=== PATIENT | male | born 1955 | race Caucasian/White ===

== ENCOUNTER → 2016-06-25 | Outpatient (CLI) | payer MEDICARE, OTHER ==
[2016-06-25 12:43] LABS: BLOOD UREA NITROGEN 21 MG/DL (7-18); CREATININE FOR GFR 0.94 MG/DL (0.70-1.30); GLOMERULAR FILTRATION RATE > 60.0 (>49)
== END ==
LOC: M LAB 11:32
PROVIDERS: ATTEND Orthopaedic Surgery Orthopaedic Surgery of the Spine
DX: M54.16 Radiculopathy, lumbar region (principal); Z79.899 Other long term (current) drug therapy

== ENCOUNTER → 2016-07-08 | Outpatient (REF) | payer MEDICARE, OTHER ==
[2016-07-08 17:25] LABS: BASO % 0.4 % (0.0-1.0); EOS # 0.4 K/mm3 (0.0-0.50); LARGE UNSTAINED CELL # 0.2 K/mm3 (0.0-0.4); LARGE UNSTAINED CELL % 1.5 % (0.0-4.0); LYMPH # 2.4 K/mm3 (1.5-4.5); LYMPH % 20.4 % (24.0-44.0); MEAN CORPUSCULAR HEMOGLOBIN 29.6 pg (27.0-33.0); MEAN CORPUSCULAR HGB CONC 31.4 g/dl (32.0-36.5); MEAN CORPUSCULAR VOLUME 94.3 fl (80.0-96.0); MONO # 0.6 K/mm3 (0.0-0.8); NEUTROPHILS # 8.2 K/mm3 (1.8-7.7); NEUTROPHILS % 69.7 % (36.0-66.0); PLATELET COUNT, AUTOMATED 1038 k/mm3 (150-450); WHITE BLOOD COUNT 11.7 K/mm3 (4.0-10.0)
[2016-07-08 18:27] LABS: ALBUMIN/GLOBULIN RATIO 0.32 (1.00-1.93); ALKALINE PHOSPHATASE 206 U/L (45-117); ALT/SGPT 29 U/L (12-78); ANION GAP 8 MEQ/L (8-16); AST/SGOT 24 U/L (15-37); BILIRUBIN,TOTAL 0.2 MG/DL (0.2-1.0); BLOOD UREA NITROGEN 14 MG/DL (7-18); CALCIUM LEVEL 8.9 MG/DL (8.8-10.2); CARBON DIOXIDE LEVEL 28 MEQ/L (21-32); CHLORIDE LEVEL 100 MEQ/L (98-107); GLOMERULAR FILTRATION RATE > 60.0 (>49); GLUCOSE, FASTING 141 MG/DL (80-110); SODIUM LEVEL 136 MEQ/L (136-145); TOTAL PROTEIN 8.3 GM/DL (6.4-8.2)
[2016-07-08 18:32] LABS: POTASSIUM SERUM 5.2 MEQ/L (3.5-5.1)
[2016-07-08 20:51] LABS: ERYTHROCYTE SEDIMENTATION RATE 116 mm/hr (0-20)
== END ==
LOC: M LAB REF 17:04
PROVIDERS: ATTEND Physician Assistant
DX: T81.4XXA Infection following a procedure, initial encounter (principal)

== ENCOUNTER → 2016-07-15 | Outpatient (REF) | payer MEDICARE, OTHER ==
[2016-07-15 18:32] LABS: BASO % 0.4 % (0.0-1.0); EOS # 0.3 K/mm3 (0.0-0.50); EOS % 2.3 % (0.0-3.0); LARGE UNSTAINED CELL # 0.2 K/mm3 (0.0-0.4); LARGE UNSTAINED CELL % 1.4 % (0.0-4.0); LYMPH # 3.1 K/mm3 (1.5-4.5); LYMPH % 25.4 % (24.0-44.0); MEAN CORPUSCULAR HEMOGLOBIN 29.6 pg (27.0-33.0); MEAN CORPUSCULAR HGB CONC 31.7 g/dl (32.0-36.5); MEAN CORPUSCULAR VOLUME 93.5 fl (80.0-96.0); MONO # 0.8 K/mm3 (0.0-0.8); MONO % 6.3 % (0.0-5.0); NEUTROPHILS # 7.8 K/mm3 (1.8-7.7); NEUTROPHILS % 64.1 % (36.0-66.0); PLATELET COUNT, AUTOMATED 832 k/mm3 (150-450); RED CELL DISTRIBUTION WIDTH 14.1 % (11.5-14.5); WHITE BLOOD COUNT 12.1 K/mm3 (4.0-10.0)
[2016-07-15 19:01] LABS: ALBUMIN 2.3 GM/DL (3.2-5.2); ALBUMIN/GLOBULIN RATIO 0.38 (1.00-1.93); ALKALINE PHOSPHATASE 193 U/L (45-117); ALT/SGPT 25 U/L (12-78); ANION GAP 10 MEQ/L (8-16); AST/SGOT 23 U/L (15-37); BILIRUBIN,TOTAL 0.3 MG/DL (0.2-1.0); BLOOD UREA NITROGEN 13 MG/DL (7-18); CALCIUM LEVEL 9.1 MG/DL (8.8-10.2); CARBON DIOXIDE LEVEL 26 MEQ/L (21-32); CHLORIDE LEVEL 100 MEQ/L (98-107); CREATININE FOR GFR 0.72 MG/DL (0.70-1.30); GLOMERULAR FILTRATION RATE > 60.0 (>49); GLUCOSE, FASTING 92 MG/DL (80-110); POTASSIUM SERUM 4.9 MEQ/L (3.5-5.1); SODIUM LEVEL 136 MEQ/L (136-145); TOTAL PROTEIN 8.4 GM/DL (6.4-8.2)
[2016-07-15 20:13] LABS: ERYTHROCYTE SEDIMENTATION RATE 106 mm/hr (0-20)
== END ==
LOC: M LAB REF 18:00
PROVIDERS: ATTEND Physician Assistant
DX: T81.4XXA Infection following a procedure, initial encounter (principal); Z79.2 Long term (current) use of antibiotics; Y83.9 Surgical procedure, unspecified as the cause of abnormal reaction of the patient, or of later complication, without mention of misadventure at the time of the procedure

== ENCOUNTER → 2016-07-22 | Outpatient (REF) | payer MEDICARE, OTHER ==
[2016-07-22 16:26] LABS: ALBUMIN 2.4 GM/DL (3.2-5.2); ALBUMIN/GLOBULIN RATIO 0.46 (1.00-1.93); ALKALINE PHOSPHATASE 186 U/L (45-117); ALT/SGPT 21 U/L (12-78); ANION GAP 8 MEQ/L (8-16); AST/SGOT 21 U/L (15-37); BILIRUBIN,TOTAL 0.1 MG/DL (0.2-1.0); BLOOD UREA NITROGEN 15 MG/DL (7-18); CALCIUM LEVEL 8.8 MG/DL (8.8-10.2); CARBON DIOXIDE LEVEL 28 MEQ/L (21-32); CHLORIDE LEVEL 103 MEQ/L (98-107); CREATININE FOR GFR 0.85 MG/DL (0.70-1.30); GLOMERULAR FILTRATION RATE > 60.0 (>49); GLUCOSE, FASTING 111 MG/DL (80-110); POTASSIUM SERUM 4.6 MEQ/L (3.5-5.1); SODIUM LEVEL 139 MEQ/L (136-145); TOTAL PROTEIN 7.6 GM/DL (6.4-8.2)
[2016-07-22 16:56] LABS: ERYTHROCYTE SEDIMENTATION RATE 104 mm/hr (0-20)
[2016-07-22 18:16] LABS: BASO # 0.1 K/mm3 (0.0-0.2); BASO % 1.1 % (0.0-1.0); EOS # 0.6 K/mm3 (0.0-0.50); EOS % 4.3 % (0.0-3.0); LARGE UNSTAINED CELL # 0.2 K/mm3 (0.0-0.4); LARGE UNSTAINED CELL % 1.5 % (0.0-4.0); LYMPH # 3.3 K/mm3 (1.5-4.5); LYMPH % 24.6 % (24.0-44.0); MEAN CORPUSCULAR HEMOGLOBIN 29.4 pg (27.0-33.0); MEAN CORPUSCULAR HGB CONC 31.8 g/dl (32.0-36.5); MEAN CORPUSCULAR VOLUME 92.6 fl (80.0-96.0); MONO # 0.8 K/mm3 (0.0-0.8); MONO % 6.4 % (0.0-5.0); NEUTROPHILS # 7.9 K/mm3 (1.8-7.7); PLATELET COUNT, AUTOMATED 574 k/mm3 (150-450); RED CELL DISTRIBUTION WIDTH 15.3 % (11.5-14.5); WHITE BLOOD COUNT 12.7 K/mm3 (4.0-10.0)
== END ==
LOC: M LAB REF 15:58
PROVIDERS: ATTEND Physician Assistant Surgical
DX: T81.4XXD Infection following a procedure, subsequent encounter (principal); Y83.8 Other surgical procedures as the cause of abnormal reaction of the patient, or of later complication, without mention of misadventure at the time of the procedure; Z79.899 Other long term (current) drug therapy

== ENCOUNTER → 2016-07-29 | Outpatient (REF) | payer MEDICARE, OTHER ==
[2016-07-29 13:15] LABS: ALBUMIN/GLOBULIN RATIO 0.58 (1.00-1.93); ALKALINE PHOSPHATASE 208 U/L (45-117); ALT/SGPT 28 U/L (12-78); ANION GAP 9 MEQ/L (8-16); AST/SGOT 25 U/L (15-37); BILIRUBIN,TOTAL 0.1 MG/DL (0.2-1.0); BLOOD UREA NITROGEN 14 MG/DL (7-18); CALCIUM LEVEL 9.3 MG/DL (8.8-10.2); CARBON DIOXIDE LEVEL 27 MEQ/L (21-32); CHLORIDE LEVEL 103 MEQ/L (98-107); CREATININE FOR GFR 0.79 MG/DL (0.70-1.30); GLOMERULAR FILTRATION RATE > 60.0 (>49); GLUCOSE, FASTING 116 MG/DL (80-110); POTASSIUM SERUM 4.5 MEQ/L (3.5-5.1); SODIUM LEVEL 139 MEQ/L (136-145); TOTAL PROTEIN 8.2 GM/DL (6.4-8.2)
[2016-07-29 13:29] LABS: BASO # 0.1 K/mm3 (0.0-0.2); BASO % 0.5 % (0.0-1.0); EOS # 0.4 K/mm3 (0.0-0.50); EOS % 3.5 % (0.0-3.0); LARGE UNSTAINED CELL # 0.2 K/mm3 (0.0-0.4); LARGE UNSTAINED CELL % 1.2 % (0.0-4.0); LYMPH % 23.5 % (24.0-44.0); MEAN CORPUSCULAR HEMOGLOBIN 29.5 pg (27.0-33.0); MEAN CORPUSCULAR HGB CONC 31.3 g/dl (32.0-36.5); MEAN CORPUSCULAR VOLUME 94.3 fl (80.0-96.0); MONO # 0.6 K/mm3 (0.0-0.8); NEUTROPHILS # 8.1 K/mm3 (1.8-7.7); NEUTROPHILS % 66.3 % (36.0-66.0); PLATELET COUNT, AUTOMATED 469 k/mm3 (150-450); RED CELL DISTRIBUTION WIDTH 15.3 % (11.5-14.5); WHITE BLOOD COUNT 12.2 K/mm3 (4.0-10.0)
[2016-07-29 14:25] LABS: ERYTHROCYTE SEDIMENTATION RATE 66 mm/hr (0-20)
== END ==
LOC: M LAB REF 12:30
PROVIDERS: ATTEND Physician Assistant Surgical
DX: T81.4XXA Infection following a procedure, initial encounter (principal)

== ENCOUNTER → 2016-08-05 | Outpatient (REF) | payer MEDICARE, OTHER ==
[2016-08-05 19:53] LABS: ALBUMIN 2.7 GM/DL (3.2-5.2); ALBUMIN/GLOBULIN RATIO 0.63 (1.00-1.93); ALKALINE PHOSPHATASE 153 U/L (45-117); ALT/SGPT 27 U/L (12-78); ANION GAP 11 MEQ/L (8-16); AST/SGOT 23 U/L (15-37); BILIRUBIN,TOTAL 0.1 MG/DL (0.2-1.0); BLOOD UREA NITROGEN 17 MG/DL (7-18); CALCIUM LEVEL 8.4 MG/DL (8.8-10.2); CARBON DIOXIDE LEVEL 26 MEQ/L (21-32); CHLORIDE LEVEL 106 MEQ/L (98-107); CREATININE FOR GFR 0.62 MG/DL (0.70-1.30); GLOMERULAR FILTRATION RATE > 60.0 (>49); GLUCOSE, FASTING 87 MG/DL (80-110); SODIUM LEVEL 143 MEQ/L (136-145)
[2016-08-05 20:07] LABS: BASO # 0.1 K/mm3 (0.0-0.2); BASO % 0.6 % (0.0-1.0); EOS # 0.6 K/mm3 (0.0-0.50); LARGE UNSTAINED CELL # 0.2 K/mm3 (0.0-0.4); LARGE UNSTAINED CELL % 2.3 % (0.0-4.0); LYMPH # 3.1 K/mm3 (1.5-4.5); LYMPH % 30.3 % (24.0-44.0); MEAN CORPUSCULAR HEMOGLOBIN 30.2 pg (27.0-33.0); MEAN CORPUSCULAR HGB CONC 31.7 g/dl (32.0-36.5); MEAN CORPUSCULAR VOLUME 95.2 fl (80.0-96.0); MONO # 0.6 K/mm3 (0.0-0.8); MONO % 5.4 % (0.0-5.0); NEUTROPHILS # 5.7 K/mm3 (1.8-7.7); NEUTROPHILS % 55.4 % (36.0-66.0); PLATELET COUNT, AUTOMATED 400 k/mm3 (150-450); RED CELL DISTRIBUTION WIDTH 15.4 % (11.5-14.5); WHITE BLOOD COUNT 10.3 K/mm3 (4.0-10.0)
[2016-08-05 20:44] LABS: ERYTHROCYTE SEDIMENTATION RATE 40 mm/hr (0-20)
== END ==
LOC: M LAB REF 17:27
PROVIDERS: ATTEND Internal Medicine Hematology & Oncology
DX: Z51.81 Encounter for therapeutic drug level monitoring (principal); Z79.899 Other long term (current) drug therapy

== ENCOUNTER → 2016-08-23 | Outpatient (CLI) | payer MEDICARE, OTHER ==
[2016-08-23 09:34] LABS: BASO # 0.1 K/mm3 (0.0-0.2); BASO % 0.6 % (0.0-1.0); EOS # 0.5 K/mm3 (0.0-0.50); LARGE UNSTAINED CELL # 0.3 K/mm3 (0.0-0.4); LYMPH # 3.6 K/mm3 (1.5-4.5); LYMPH % 29.4 % (24.0-44.0); MEAN CORPUSCULAR HEMOGLOBIN 29.9 pg (27.0-33.0); MEAN CORPUSCULAR HGB CONC 31.4 g/dl (32.0-36.5); MEAN CORPUSCULAR VOLUME 95.4 fl (80.0-96.0); MONO # 0.6 K/mm3 (0.0-0.8); MONO % 5.2 % (0.0-5.0); NEUTROPHILS # 7.2 K/mm3 (1.8-7.7); NEUTROPHILS % 58.7 % (36.0-66.0); PLATELET COUNT, AUTOMATED 444 k/mm3 (150-450); WHITE BLOOD COUNT 12.3 K/mm3 (4.0-10.0)
[2016-08-23 10:04] LABS: ANION GAP 6 MEQ/L (8-16); BLOOD UREA NITROGEN 11 MG/DL (7-18); CALCIUM LEVEL 9.7 MG/DL (8.8-10.2); CARBON DIOXIDE LEVEL 32 MEQ/L (21-32); CHLORIDE LEVEL 103 MEQ/L (98-107); CREATININE FOR GFR 0.79 MG/DL (0.70-1.30); GLOMERULAR FILTRATION RATE > 60.0 (>49); GLUCOSE, FASTING 103 MG/DL (80-110); POTASSIUM SERUM 4.9 MEQ/L (3.5-5.1); SODIUM LEVEL 141 MEQ/L (136-145)
[2016-08-23 10:21] LABS: ERYTHROCYTE SEDIMENTATION RATE 44 mm/hr (0-20)
== END ==
LOC: M LAB 08:52
PROVIDERS: ATTEND Internal Medicine
DX: T81.4XXD Infection following a procedure, subsequent encounter (principal); X58.XXXA Exposure to other specified factors, initial encounter; Y92.89 Other specified places as the place of occurrence of the external cause; Y93.89 Activity, other specified; Y99.8 Other external cause status

== ENCOUNTER → 2016-08-26 | Outpatient (REF) | payer MEDICARE, OTHER ==
[2016-08-26 19:36] LABS: ALBUMIN 3.4 GM/DL (3.2-5.2); ALBUMIN/GLOBULIN RATIO 0.81 (1.00-1.93); ALKALINE PHOSPHATASE 159 U/L (45-117); ALT/SGPT 25 U/L (12-78); ANION GAP 8 MEQ/L (8-16); AST/SGOT 20 U/L (15-37); BILIRUBIN,TOTAL 0.2 MG/DL (0.2-1.0); BLOOD UREA NITROGEN 15 MG/DL (7-18); CALCIUM LEVEL 8.8 MG/DL (8.8-10.2); CARBON DIOXIDE LEVEL 29 MEQ/L (21-32); CHLORIDE LEVEL 105 MEQ/L (98-107); CHOLESTEROL LEVEL 194 MG/DL (<200); CREATININE FOR GFR 0.78 MG/DL (0.70-1.30); GLOMERULAR FILTRATION RATE > 60.0 (>49); GLUCOSE, FASTING 117 MG/DL (80-110); POTASSIUM SERUM 4.4 MEQ/L (3.5-5.1); SODIUM LEVEL 142 MEQ/L (136-145); TOTAL PROTEIN 7.6 GM/DL (6.4-8.2); TRIGLYCERIDES LEVEL 328 MG/DL (<150)
[2016-08-29 00:06] LABS: PSA % FREE 24.7 % (.); PSA FREE 1.06 ng/mL; PSA TOTAL 4.3 ng/mL (0.0-4.0)
== END ==
LOC: M LAB REF 18:55
PROVIDERS: ATTEND Nurse Practitioner Family
DX: Z12.5 Encounter for screening for malignant neoplasm of prostate (principal); E78.4 Other hyperlipidemia

== ENCOUNTER → 2016-10-26 | Outpatient (CLI) | payer MEDICARE, OTHER ==
[2016-10-26 10:15] LABS: BLOOD UREA NITROGEN 20 MG/DL (7-18); CREATININE FOR GFR 0.83 MG/DL (0.70-1.30); GLOMERULAR FILTRATION RATE > 60.0 (>49)
== END ==
LOC: M LAB 09:22
PROVIDERS: ATTEND Orthopaedic Surgery Orthopaedic Surgery of the Spine
DX: M54.16 Radiculopathy, lumbar region (principal)

== ENCOUNTER → 2017-03-11 | Outpatient (REF) | payer MEDICARE, OTHER | LOC: M SMT 17:08 | PROVIDERS: ATTEND Nurse Practitioner Women's Health | DX: R97.20 Elevated prostate specific antigen [PSA] (principal); Z79.82 Long term (current) use of aspirin; Z79.899 Other long term (current) drug therapy | CPT/HCPCS: 81001; 87086; G0463 ==

== ENCOUNTER 2018-02-07 16:46 | Emergency (ER) | payer MEDICARE, OTHER ==
[2018-02-07 17:18] LABS: BASO # 0.1 10^3/uL (0.0-0.2); BASO % 0.8 % (0.0-1.0); EOS # 0.3 10^3/uL (0.0-0.50); EOS % 2.3 % (0.0-3.0); HEMATOCRIT 42.4 % (42.0-52.0); HEMOGLOBIN 13.6 g/dl (13.5-17.5); IMMATURE GRANULOCYTE % 0.3 % (0-3.0); LYMPH # 3.4 10^3/uL (1.5-4.5); LYMPH % 26.2 % (24.0-44.0); MEAN CORPUSCULAR HGB CONC 32.1 g/dl (32.0-36.5); MEAN CORPUSCULAR VOLUME 93.4 fl (80.0-96.0); NEUTROPHILS # 8.1 10^3/uL (1.8-7.7); NEUTROPHILS % 62.4 % (36.0-66.0); PLATELET COUNT, AUTOMATED 405 10^3/uL (150-450); RED BLOOD COUNT 4.54 10^6/uL (4.30-6.10); RED CELL DISTRIBUTION WIDTH 15.4 % (11.5-14.5); WHITE BLOOD COUNT 13.1 10^3/uL (4.0-10.0)
[2018-02-07 17:41] LABS: ANION GAP 8 MEQ/L (8-16); BLOOD UREA NITROGEN 7 MG/DL (7-18); CALCIUM LEVEL 8.8 MG/DL (8.8-10.2); CARBON DIOXIDE LEVEL 27 MEQ/L (21-32); CHLORIDE LEVEL 104 MEQ/L (98-107); CPK CREATINE PHOSPHOKINASE 309 U/L (39-308); CREATININE FOR GFR 0.88 MG/DL (0.70-1.30); GLOMERULAR FILTRATION RATE > 60.0 (>49); GLUCOSE, FASTING 161 MG/DL (70-100); POTASSIUM SERUM 3.9 MEQ/L (3.5-5.1); SODIUM LEVEL 139 MEQ/L (136-145); TROPONIN I < 0.02 NG/ML (< 0.10)
[2018-02-07 17:42] LABS: CK-MB VALUE MASS 5.8 NG/ML (<3.6); MB/CK RELATIVE INDEX 1.87 (< OR =4)
[2018-02-07] MEDS ORDERED: PERCOCET 5MG/325MG TAB PO (21:30)
[2018-02-07] MEDS: NORCO 5/325MG TABLET (BULK FOR ED) PO (22:00)
[2018-02-07] MEDS: predniSONE 20 MG TAB PO (22:00)
== END 2018-02-07 22:16 | disposition home or self-care (01) ==
LOC: M ED 16:46
DX: M50.30 Other cervical disc degeneration, unspecified cervical region (principal); M54.12 Radiculopathy, cervical region; I10 Essential (primary) hypertension; E78.5 Hyperlipidemia, unspecified; Z79.899 Other long term (current) drug therapy
CPT/HCPCS: 72141

== ENCOUNTER → 2019-04-08 | Outpatient (CLI) | payer MEDICARE, OTHER ==
[~2019-04-08] MED LIST: ATOR1TAB21 PO; HYDR-3713 PO; MEDR4PAK PO; NORC1TAB7 PO
[2019-04-09 19:25] LABS: PSA TOTAL 3.7 ng/mL (0.0-4.0)
== END ==
LOC: M SMT 08:34
PROVIDERS: ATTEND Nurse Practitioner Women's Health
DX: R97.20 Elevated prostate specific antigen [PSA] (principal)
CPT/HCPCS: 36415; 84154; G0463

== ENCOUNTER 2019-06-30 15:39 | Inpatient (IN) | payer MEDICARE, OTHER ==
[~2019-06-30] VITALS: Ht 172.7 cm; Wt 93.3 kg
[2019-06-30 16:06] LABS: HEMATOCRIT 44.2 % (42.0-52.0); HEMOGLOBIN 14.7 g/dl (13.5-17.5); MEAN CORPUSCULAR HEMOGLOBIN 30.2 pg (27.0-33.0); MEAN CORPUSCULAR HGB CONC 33.3 g/dl (32.0-36.5); MEAN CORPUSCULAR VOLUME 90.8 fl (80.0-96.0); PLATELET COUNT, AUTOMATED 242 10^3/uL (150-450); RED BLOOD COUNT 4.87 10^6/uL (4.30-6.10)
[2019-06-30 16:11] LABS: WHITE BLOOD COUNT 37.5 10^3/uL (4.0-10.0)
[2019-06-30 16:19] LABS: INR 1.33; PROTHROMBIN TIME 16.2 SECONDS (11.8-14.0)
[2019-06-30 16:20] LABS: PARTIAL THROMBOPLASTIN TIME 35.4 SECONDS (25.0-38.4)
--- NOTE | 2019-06-30 16:28 | REP ---
INDICATION: New onset AFib, question CVA. PROCEDURE: Noncontrast CT head COMPARISON STUDIES: No prior similar studies. FINDINGS: No acute bleed or acute large vessel territorial infarct. Ventricles, cisterns and sulci are within normal limits for age. No mass effect or midline shift. No abnormal fluid collections. CONCLUSION: No acute findings. Normal examination. Electronically Signed by Carlos Shepard MD 06/30/2019 04:19 P
[2019-06-30 16:29] LABS: ATYPICAL LYMPH 2 % (0-5); LYMPHOCYTES 3 % (16-44); MONOCYTES 3 % (0-5); NEUTROPHILS 89 % (28-66)
[2019-06-30 16:30] LABS: SMUDGE CELLS 1+; TOXIC VACUOLATION 1+
[2019-06-30] MEDS ORDERED: METOPROLOL TART 50 MG TAB PO ONE (16:30)
[2019-06-30 16:31] LABS: PLATELET ESTIMATE NORMAL (NORMAL)
[2019-06-30] MEDS: METOPROLOL 5 MG/5 ML VIAL IV SCH ×3 (16:34→16:55)
[2019-06-30] MEDS ORDERED: ACETAMINOPHEN 325 MG TAB As Ordered ONE (16:38)
[2019-06-30] MEDS ORDERED: ACETAMINOPHEN TAB 650MG DOSE (2X325MG) PO ONE (16:45)
--- NOTE | 2019-06-30 16:49 | REP ---
Portable chest x-ray: Single view. History: Atrial fibrillation. Comparison chest x-ray: February 07, 2018. Findings: Monitoring electrodes overlie the chest. The heart is not enlarged. Lungs are well inflated and clear. There is mild vascular calcification in the aorta. Impression: No active disease. Electronically Signed by Warren Das MD 06/30/2019 04:41 P
[2019-06-30 16:55] LABS: ACETAMINOPHEN LEVEL < 2.0 UG/ML (10.0-30.0); ETHYL ALCOHOL (ETHANOL) < 0.003 % (0.000-0.010); SALICYLATE LEVEL 2.5 MG/DL (5.0-30.0)
[2019-06-30 17:04] LABS: ERYTHROCYTE SEDIMENTATION RATE 44 mm/hr (0-20)
[2019-06-30 17:07] LABS: ALBUMIN 2.9 GM/DL (3.2-5.2); BILIRUBIN,DIRECT 0.5 MG/DL (0.0-0.2); C REACTIVE PROTEIN QUANTITATIV 31.7 MG/DL (0.00-0.30); CALCIUM LEVEL 9.6 MG/DL (8.8-10.2); CK-MB VALUE MASS 34.1 NG/ML (<3.6); CREATININE FOR GFR 1.51 MG/DL (0.70-1.30); GLOMERULAR FILTRATION RATE 49.8 (>49); MB/CK RELATIVE INDEX 0.83 (< OR =4); POTASSIUM SERUM 3.8 MEQ/L (3.5-5.1); TROPONIN I 0.09 NG/ML (< 0.10)
[2019-06-30 17:08] LABS: AMPHETAMINES LEVEL URINE NEGATIVE (NEGATIVE); BARBITURATES URINE NEGATIVE (NEGATIVE); BENZODIAZEPINES URINE NEGATIVE (NEGATIVE); CANNABINOIDS URINE POSITIVE (NEGATIVE); COCAINE METABOLITE URINE NEGATIVE (NEGATIVE); METHADONE URINE NEGATIVE (NEGATIVE); OPIATES URINE POSITIVE (NEGATIVE); PHENCYCLIDINE URINE NEGATIVE (NEGATIVE)
[2019-06-30] MEDS ORDERED: cefTRIAXone SOD 2 GM in D5W MINI-BAG PLUS 50 ML IV ONE (17:30)
[2019-06-30] MEDS ORDERED: LABETALOL HCL 100 MG/20 ML VIAL IV PRN (18:00)
[2019-06-30] MEDS ORDERED: LABETALOL HCL 100 MG/20 ML VIAL IV STA (18:00)
--- NOTE | 2019-06-30 18:08 | HPE ---
DATE OF ADMISSION: 06/30/2019 at 5:45 p.m. CHIEF COMPLAINT: Right swollen elbow. HISTORY OF PRESENT ILLNESS: This is a 63-year-old man who was consulted to me by the emergency room physician foster at [facility]. He is here with his son. This man apparently was found down after possibly 2 days. He regularly will barricade himself inside his house due to some paranoia of home intruders. Apparently, he spoke to his son on Friday about moving a bed on Friday. The son came over Friday. The door was locked. He had to kick in the door, as he was not answering the phone today. This man has had apparently back surgery 2 years ago in [facility]. It became infected. He has had a carpal tunnel release. He has atrial fibrillation. He was found to be extremely hypertensive in the emergency department. The question was whether he had a septic right elbow that could be contributing to this picture. PAST MEDICAL HISTORY: Includes: 1. Infected lumbar spine surgery 2. BPH. 3. Carpel tunnel release. 4. Atrial fibrillation. 5. Dyslipidemia. 6. Splenectomy. MEDICATIONS: Not recorded; however, it appears as though he takes metoprolol at home and possibly is on a blood thinner. ALLERGIES: No known drug allergies. PAST SURGICAL HISTORY: As listed above. SOCIAL HISTORY: He is here with his son. He takes Vicodin on a regular basis for back pain. He also smokes marijuana.. He does not use other illicit drugs. He does not use alcohol. PHYSICAL EXAMINATION: A 63-year-old man appears lying supine. He is responding minimally. Vital signs: Temperature 102 3 on arrival. His blood pressure at 5 o'clock was 210/98, pulse rate 110, pulse oximetry 95%. Inspection of his upper and lower extremities reveals some mild to moderate redness and swelling about the posterior aspect of his right elbow. There is some mild swelling to the proximal forearm, but his forearm compartments are quite soft and supple. No signs of compartment syndrome. No pain on passive stretch. Able to get him to actively and passively range the elbow fully, 0-135 degrees. He states that there is no pain with that. There is no obvious elbow effusion. Soft spot is soft and supple. There is some minor warmth to the posterior aspect of the elbow. No pain or redness or swelling tracking up the arm or going down the arm toward the wrist. No abnormalities of the shoulder or hand. Strong radial pulse. It is difficult to get him to follow commands. Radiographs reviewed of the right elbow. AP and lateral radiographs were obtained. There is some mild soft tissue swelling but no obvious effusion and no fractures or other bony abnormalities. Joint spaces appear well maintained. Laboratory examination reveals extremely elevated white blood cell count of 37.5. Neutrophils 89. ESR is 44. INR is 1.3. PT 16.2, APTT 35.4. Lactic acid is elevated at 2.8. CRP 31. CK of 4132, alkaline phosphatase is 77 ASSESSMENT AND PLAN: A 63-year-old man likely has cellulitis of his right elbow combined with a soft tissue pressure injury. There is no open injury. There are no signs of an acute intra-articular septic elbow process given his lack of pain and full range of motion as well as no obvious effusion to direct examination. For now, I suggest treatment with typical soft tissue spectrum antibiotics or something possibly stronger than that given the fact that he may have a septicemia or other cause for his confusion. I will follow him while he is admitted under the hospitalist service. Apparently blood cultures have been sent, and myself and the hospitalist can followup on those. I see no acute reason to perform a aspiration of his elbow given my low clinical suspicion of a septic elbow, but I will follow this closely to make sure it resolves with intravenous (IV) antibiotics. Thank you very much for the consult.
--- NOTE | 2019-06-30 18:10 | REP ---
RIGHT ELBOW, TWO VIEWS: ELBOW There is no evidence of an acute fracture, dislocation or intrinsic bone disease. No osseous destruction of periosteal reaction is seen. IMPRESSION: No fracture or dislocation. No osseous destruction or periosteal reaction is seen. Electronically Signed by Cortez Hatfield MD 06/30/2019 08:06 P
--- NOTE | 2019-06-30 18:11 | REP ---
RIGHT HUMERUS, TWO VIEWS: HUMERUS: There is no evidence of an acute fracture, dislocation or intrinsic bone disease. IMPRESSION: No fracture or dislocation. Electronically Signed by Cortez Hatfield MD 06/30/2019 08:06 P
[2019-06-30] MEDS ORDERED: CEFTAROLINE FOSAMIL 400 MG in D5W MINI-BAG PLUS 50 ML IV SCH ×2 (18:15→21:00)
[2019-06-30] MEDS: NS 1,000 ML IV SCH (18:24)
--- NOTE | 2019-06-30 18:38 | HPEPDOC ---
General Date of Admission 06/30/19 Date of Service: Jun 30, 2019 Chief Complaint The patient is a 63-year-old male admitted with a reason for visit of FALL. Source: Family Exam Limitations: Clinical conditions Timing/Duration: Day(s) Severity: Severe Associated Symptoms: Unobtainable History of Present Illness Patient is 63 years old male with past history of splenectomy, BPH, hypertension who did not see PCP for years was brought to the hospital by family with altered mental status. His son stated that he was found his father in his apartment covered by feces on the floor with altered mental status. Presumably patient was on the floor for past 2 days. Patient was confused and couldn't answer the questions. In emergency room patient was found to have right elbow contusion with erythema, x-ray was negative for fracture. His blood pressure was significantly elevated 219/103, he was found to have atrial fibrillation with rapid ventricular rate, elevated white blood count 37.5, sedimentation rate of 44, lactic acid of 2.8, creatinine 1.5 and CPK around 4000. Home Medications Scheduled Atorvastatin Calcium (Atorvastatin Calcium) 20 Mg Tab, 20 MG PO DAILY, (Reported) Scheduled PRN Hydrocodone/Acetaminophen (Hydrocodone-Acetamin 5-325 mg) 1 Tab Tab, 1 TAB PO Q8H PRN for PAIN, (Reported) Allergies Coded Allergies: No Known Allergies (Unverified , 02/07/18) Past Medical History Medical History BPH, hypertension, chronic back pain Surgical History Splenectomy, back surgery 2 years ago Family History Father from diabetes complications Social History * Smoker: Denies, current smoker Alcohol: Denies Drugs: marijuana A-FIB/CHADSVASC A-FIB History Current/History of A-Fib/PAF?: Yes Current PO Anticoag Therapy: No Age/Risk Factor Scoring CHADSVASC: CHADSVASC Response (Comments) Value Age Risk Factor Age < 65 years old 0 Gender Risk Factor Male 0 Hx of HTN Yes 1 Total 1 Treatment Treatment ordered: Rivaroxaban Reason Anticoagulant not given: Other Other reason anticoagulant not: targeted anticoagulation ordered Review of Systems Constitutional: Reports: Other (unable to obtain due to altered mental status) Physical Examination General Exam: Positive: Severe Distress; Negative: Alert Eye Exam: Positive: PERRLA ENT Exam: Positive: Atraumatic Neck Exam: Positive: Supple; Negative: JVD Chest Exam: Positive: Clear to auscultation Heart Exam: Positive: Irregular Rhythm Telemetry: Positive: Atrial fibrillation Abdomen Exam: Positive: Normal bowel sounds Extremity Exam: Negative: Clubbing, Cyanosis Skin Exam: Positive: Nl turgor and temperature, Other skin issue (right elbow redness and swelling) Neuro Exam: Positive: Cranial Nerves 3-12 NL, Reflexes 2+ Psych Exam: Positive: Other (patient not oriented, not alert) Vital Signs Vital Signs Date Time Temp Pulse Resp B/P (MAP) Pulse Ox O2 Delivery O2 Flow Rate FiO2 06/30/19 17:00 110 210/98 (135) 95 06/30/19 16:28 102.3 42 Laboratory Data Labs 24H Laboratory Tests 2 06/30/19 15:51: Prothrombin Time 16.2H, Prothromb Time International Ratio 1.33, Activated Partial Thromboplast Time 35.4 06/30/19 15:56: Neutrophils # (Auto) , Monocytes # (Auto) , Nucleated Red Blood Cells % (auto) 0.0, Neutrophils 89H, Band Neutrophils 3, Lymphocytes (Manual) 3L, Monocytes (Manual) 3, Atypical Lymphocytes 2, Toxic Vacuolation 1+, Smudge Cells 1+, Platelet Estimate NORMAL, Erythrocyte Sedimentation Rate 44H, Anion Gap 16, Glomerular Filtration Rate 49.8, Calcium Level 9.6, Total Bilirubin 1.0, Direct Bilirubin 0.5H, Aspartate Amino Transf (AST/SGOT) 175H, Alanine Aminotransferase (ALT/SGPT) 53, Alkaline Phosphatase 77, Total Creatine Kinase 4132H, Creatine Kinase MB 34.1H, Creatine Kinase MB Relative Index 0.83, Troponin I 0.09, C- Reactive Protein, Quantitative 31.70H, Total Protein 8.0, Albumin 2.9L, Albumin/Globulin Ratio 0.57L 06/30/19 16:03: Lactic Acid Level 2.8*H 06/30/19 16:18: Salicylates Level 2.5L, Acetaminophen Level < 2.0L, Ethyl Alcohol Level < 0.003 06/30/19 16:32: Urine Opiates Screen POSITIVEH, Urine Methadone Screen NEGATIVE, Urine Barbiturates Screen NEGATIVE, Urine Phencyclidine Screen NEGATIVE, Urine Amphetamines Screen NEGATIVE, Urine Benzodiazepines Screen NEGATIVE, Urine Cocaine Metabolite Screen NEGATIVE, Urine Cannabinoids Screen POSITIVEH CBC/BMP Laboratory Tests 06/30/19 15:56 Microbiology Microbiology 06/30/19 Blood Culture, Received Pending 06/30/19 Blood Culture, Received Pending Assessment/Plan Patient is 63 years old male with past history of splenectomy, BPH, hypertension who did not see PCP for years was brought to the hospital by family with altered mental status. His son stated that he was found his father in his apartment covered by feces on the floor with altered mental status. Presumably patient was on the floor for past 2 days. Patient was confused and couldn't answer the questions. In emergency room patient was found to have right elbow contusion wi th erythema, x-ray was negative for fracture. His blood pressure was significantly elevated 219/103, he was found to have atrial fibrillation with rapid ventricular rate, elevated white blood count 37.5, sedimentation rate of 44, lactic acid of 2.8, creatinine 1.5 and CPK around 4000. Problems (1) Sepsis Status: Acute Problem Text: Most likely secondary to right elbow cellulitis Patient febrile, has increased leukocytosis, elevated lactic acid, atrial fibrillation with rapid ventricular rate I started IV Ceftaroline Due to hypertensive emergency I'm hesitant with aggressive fluid resuscitation When blood pressure become in appropriate range we will start aggressive fluid Blood culture (2) New onset atrial fibrillation Status: Acute Problem Text: New onset of atrial fibrillation associated with rapid ventricular rate We'll start anticoagulation Echo Labetalol IV when necessary Will start metoprolol by mouth Thyroid profile (3) Rhabdomyolysis Status: Acute Problem Text: Secondary to fall We will start aggressive fluid resuscitation after hypertensive emergency resolved Continue monitor (4) Altered mental status Status: Acute Problem Text: Most likely secondary to sepsis, pain (5) Hypertensive emergency Status: Acute Problem Text: Labetalol IV when necessary Plan / VTE VTE Prophylaxis Ordered?: Yes ROXY SANDERS DO Jun 30, 2019 18:38
[2019-06-30 19:37] LABS: CREATININE FOR GFR 1.36 MG/DL (0.70-1.30); GLOMERULAR FILTRATION RATE 56.2 (>49)
[2019-06-30 19:48] LABS: FREE T4 1.21 NG/DL (0.76-1.46); MAGNESIUM LEVEL 2.5 MG/DL (1.8-2.4); THYROID STIMULATING HORMONE 0.329 uIU/ML (0.358-3.740)
[2019-06-30 20:48] VITALS: BP 145/73
[2019-06-30 21:00] VITALS: BP 136/72
[2019-06-30] MEDS ORDERED: METOPROLOL TART 25 MG TABLET PO SCH (21:00)
[2019-06-30] MEDS ORDERED: ENOXAPARIN 100MG/1ML SYRINGE (J1650) SC SCH (21:00)
[2019-06-30] MEDS ORDERED: HEPARIN SOD (PORCINE) 5000 UNITS/ML VIAL SC SCH (21:00)
[2019-06-30 21:11] VITALS: BP 119/70
[2019-06-30 21:41] VITALS: BP 123/73
[2019-06-30 22:11] VITALS: BP 131/68
[2019-06-30 23:06] VITALS: BP 139/73
[2019-07-01] VITALS (35 sets, daily range): BP systolic 90–172; BP diastolic 61–97
[2019-07-01] MEDS ORDERED: ACETAMINOPHEN *IV* 1,000 MG in IV 1 EA IV PRN ×2
[2019-07-01 00:12] LABS: ABG O2 SATURATION 97.3 % (95.0-99.0); ABG PARTIAL PRESSURE CO2 29.6 mmHg (35.0-45.0); ABG PARTIAL PRESSURE O2 95.3 mmHg (75.0-100.0); ABG STANDARD HCO3 21.2 MEQ/L (22.0-26.0); ABG TOTAL CO2 19.9 MEQ/L (23.0-31.0); ABG pH (ARTERIAL) 7.426 UNITS (7.350-7.450)
[2019-07-01 00:24] LABS: HEMATOCRIT 41.9 % (42.0-52.0); HEMOGLOBIN 14.1 g/dl (13.5-17.5); MEAN CORPUSCULAR HEMOGLOBIN 30.3 pg (27.0-33.0); MEAN CORPUSCULAR HGB CONC 33.7 g/dl (32.0-36.5); MEAN CORPUSCULAR VOLUME 90.1 fl (80.0-96.0); PLATELET COUNT, AUTOMATED 219 10^3/uL (150-450); RED BLOOD COUNT 4.65 10^6/uL (4.30-6.10)
[2019-07-01 00:26] LABS: WHITE BLOOD COUNT 37.1 10^3/uL (4.0-10.0)
[2019-07-01 00:59] LABS: ALBUMIN 2.5 GM/DL (3.2-5.2); CK-MB VALUE MASS 21.7 NG/ML (<3.6); CREATININE FOR GFR 1.43 MG/DL (0.70-1.30); MB/CK RELATIVE INDEX 0.64 (< OR =4); POTASSIUM SERUM 3.6 MEQ/L (3.5-5.1); TOTAL PROTEIN 6.4 GM/DL (6.4-8.2); TROPONIN I 0.09 NG/ML (< 0.10)
--- NOTE | 2019-07-01 01:51 | REPVR ---
PROCEDURE INFORMATION: Exam: CT Chest Without Contrast Exam date and time: 07/01/2019 1:00 AM Age: 63 years old Clinical indication: Other: ? Rul nodule; Additional info: Sepsis, ? rul nodule TECHNIQUE: Imaging protocol: Computed tomography of the chest without contrast. Radiation optimization: All CT scans at this facility use at least one of these dose optimization techniques: automated exposure control; mA and/or kV adjustment per patient size (includes targeted exams where dose is matched to clinical indication); or iterative reconstruction. COMPARISON: CR Chest, 1 view 06/30/2019 4:30 PM FINDINGS: Lungs: Slight interstitial coarsening in the lower lobes. Minimal dependent atelectasis. No pulmonary nodule. Pleural space: Unremarkable. No pneumothorax. No pleural effusion. Heart: Coronary artery calcifications are present. Pulmonary arteries: The main pulmonary artery measures 28 mm. Aorta: The ascending thoracic aorta measures 33 mm. Lymph nodes: Unremarkable. No enlarged lymph nodes. Bones/joints: Unremarkable. No acute fracture. Soft tissues: Unremarkable. Other findings: Motion artifact is noted. IMPRESSION: 1. Slight interstitial coarsening in the lower lobes which likely reflects chronic change. 2. Otherwise negative CT chest. No pulmonary nodule is identified. Electronically signed by: Porfirio Tijerina On 07/01/2019 01:50:39 AM
--- NOTE | 2019-07-01 01:55 | REPVR ---
PROCEDURE INFORMATION: Exam: CT Abdomen And Pelvis Without Contrast Exam date and time: 07/01/2019 1:00 AM Age: 63 years old Clinical indication: Other: Sepsis; Additional info: Sepsis, ? rul nodule TECHNIQUE: Imaging protocol: Computed tomography of the abdomen and pelvis without contrast. Radiation optimization: All CT scans at this facility use at least one of these dose optimization techniques: automated exposure control; mA and/or kV adjustment per patient size (includes targeted exams where dose is matched to clinical indication); or iterative reconstruction. COMPARISON: No relevant prior studies available. FINDINGS: Lungs: Slight interstitial coarsening with minimal bilateral lower lobe fibro-atelectatic change. Liver: Normal. No mass. Gallbladder and bile ducts: Normal. No calcified stones. No ductal dilation. Pancreas: Normal. No ductal dilation. Spleen: Absent spleen with small splenules in the area. Adrenals: Normal. No mass. Kidneys and ureters: Normal. No hydronephrosis. Stomach and bowel: Unremarkable. No obstruction. No mucosal thickening. Appendix: A normal appendix is seen. Intraperitoneal space: Unremarkable. No free air. No significant fluid collection. Vasculature: There is mild calcification of the abdominal aorta with extension into the iliac arteries. Lymph nodes: Unremarkable. No enlarged lymph nodes. Bladder: Unremarkable as visualized. Reproductive: Unremarkable as visualized. Bones/joints: Degenerative changes of the lower lumbar spine with L4 laminectomy and apparent bony fusion from L3-S1. Soft tissues: Unremarkable. Other findings: There is some motion artifact with image degradation. IMPRESSION: 1. Slight pulmonary interstitial coarsening with minimal bilateral lower lobe fibro-atelectatic change. 2. Fusion of the lower lumbar spine with L4 laminectomy. 3. Status post splenectomy with small splenules in the splenic bed. 4. Otherwise negative CT abdomen/pelvis. Electronically signed by: Porfirio Tijerina On 07/01/2019 01:54:54 AM
[2019-07-01] MEDS ORDERED: METOPROLOL 5 MG/5 ML VIAL As Ordered ONE ×2 (02:52→02:55)
[2019-07-01] MEDS ORDERED: METOPROLOL 5 MG/5 ML VIAL IV STA (02:59)
[2019-07-01] MEDS: NS 1,000 ML IV SCH ×2 (03:04→10:55)
[2019-07-01] MEDS: diltiaZEM 125 MG in NS 100 ML IV SCH ×3 (03:34→19:19)
[2019-07-01] MEDS ORDERED: DIGOXIN INJ 0.5 MG/2 ML AMP (J1160) IV ONE (04:30)
[2019-07-01 06:03] LABS: HEMATOCRIT 43.6 % (42.0-52.0); HEMOGLOBIN 14.5 g/dl (13.5-17.5); MEAN CORPUSCULAR HEMOGLOBIN 30.3 pg (27.0-33.0); MEAN CORPUSCULAR HGB CONC 33.3 g/dl (32.0-36.5); PLATELET COUNT, AUTOMATED 223 10^3/uL (150-450); RED BLOOD COUNT 4.79 10^6/uL (4.30-6.10)
[2019-07-01 06:05] LABS: WHITE BLOOD COUNT 37.6 10^3/uL (4.0-10.0)
--- NOTE | 2019-07-01 06:22 | ECGEPIP ---
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
[2019-07-01 06:30] LABS: CREATININE FOR GFR 1.8 MG/DL (0.70-1.30); GLOMERULAR FILTRATION RATE 40.6 (>49); MAGNESIUM LEVEL 2.8 MG/DL (1.8-2.4); POTASSIUM SERUM 3.6 MEQ/L (3.5-5.1); TROPONIN I 0.06 NG/ML (< 0.10)
--- NOTE | 2019-07-01 06:36 | REPVR ---
PROCEDURE INFORMATION: Exam: US Duplex Right Upper Extremity Veins, Limited Exam date and time: 07/01/2019 6:16 AM Age: 63 years old Clinical indication: Swelling (edema) of limb; Upper extremity, right; Additional info: Right upper extremity TECHNIQUE: Imaging protocol: Real-time Duplex ultrasound of the Right Upper Extremity with 2-D fountain scale, color Doppler flow and spectral waveform analysis with image documentation. Limited exam focused on the right upper extremity veins. COMPARISON: No relevant prior studies available. FINDINGS: Right deep veins: Unremarkable. Axillary and brachial veins are patent throughout without thrombus. Normal Doppler waveforms. Normal compressibility and/or augmentation response. Visualized internal jugular and subclavian veins are patent. Right superficial veins: Unremarkable. Visualized cephalic and basilic veins are patent without thrombus. Soft tissues: Unremarkable. IMPRESSION: Negative right upper extremity venous duplex exam without evidence of deep venous thrombosis. Electronically signed by: Porfirio Tijerina On 07/01/2019 06:35:48 AM
--- NOTE | 2019-07-01 07:20 | CR ---
DATE OF CONSULTATION: 07/01/2019 CRITICAL CARE NOTE. CHIEF COMPLAINT: Altered mental status. HISTORY OF PRESENT ILLNESS: The patient is a 63-year-old male with a history of hypertension, benign prostatic hypertrophy (BPH), splenectomy who presented with complaint of altered mental status. Most of the history was obtained from the patient's son as the patient himself was unable to provide a complete history. As per the son the patient was last seen by him well on Friday. He lives alone and the patient's son did visit him on Friday but was unable to enter the apartment which he was not concerned about initially. He continued to not hear from him for the next day until when he became more concerned. The patient broke into the house on and found his father in the apartment lying on the floor covered in feces with confusion. At baseline the patient is reportedly awake, alert and answers questions appropriately. In the emergency department (ED) the patient was confused. He was able to answer some questions but unable to provide a clear history. Initially the patient was found to be tachycardiac with possible atrial fibrillation with rapid ventricular response (RVR) which was reportedly new. He also had significant leukocytosis and a fever initially as well as increased lactic acid and CPK. The patient was also significantly hypertensive in the ED. He was admitted to the Intensive Care Unit (ICU) for hypertensive emergency. He was given medications for blood pressure as well as for rate control and his heart rate and blood pressure had improved. The patient was also started on broad-spectrum antibiotics with Ceftaroline for sepsis possibly secondary to cellulitis in his right arm. Overnight in the ICU the patient appeared to become more tachypneic as well as diaphoretic. He continued to have altered mentation in terms of having lethargy, staring episodes and confusion. He is still arousable and able to answer some questions with much prompting. The patient denied currently having any chest pain or shortness of breath. He denied any other complaints but was noted to have grimacing and some tenderness with palpation on abdominal exam although he denied significant abdominal pain. PAST MEDICAL HISTORY/ PAST SURGICAL HISTORY: 1. BPH. 2. Hypertension. 3. Chronic back pain. 4. Splenectomy. 5. Back surgery two years ago. FAMILY HISTORY: Father with history of diabetes. SOCIAL HISTORY: Current smoker one pack a day. Smokes marijuana daily. Denies any alcohol use or other drug use. HOME MEDICATIONS: - atorvastatin and hydrocodone/acetaminophen. ALLERGIES: NO KNOWN DRUG ALLERGIES. PHYSICAL EXAMINATION VITAL SIGNS: Temperature maximum (T-max) 102.3, temperature (T-)current 96.7, pulse 118, respirations 40s, blood pressure 139/73, O2 sat 95-96% on room air. In 120 mL, no documented output. GENERAL: The patient is lying in the bed, appears diaphoretic and lethargic. He is able to answer some questions with much prompting but is confused and is oriented to person only. HEENT/NECK: Normocephalic, atraumatic. There are moist mucous membranes. Pupils are reactive to light bilaterally. Neck is supple. Trachea is midline. There is no palpable cervical adenopathy. Patient is unable to perform command the extraocular movements. CARDIOVASCULAR: Tachycardic, irregularly irregular, normal S1-S2. Unable to clearly appreciate any murmurs. There are somewhat muffled heart sounds. PULMONARY: Clear to auscultation bilaterally with no significant wheezing, rales or rhonchi. There is some accessory muscles for respiration use. ABDOMEN: Soft and obese. There is tenderness to palpation more in the left upper quadrant. EXTREMITIES: There is no lower extremity edema bilaterally. There is swelling in the right upper extremity but with no evidence of any compartment syndrome. There is mild swelling around the posterior aspect of his right elbow but no obvious effusion. The patient has some pain with movement of his upper extremities bilaterally but is not significantly tender to palpation. No increased warmth LABORATORY DATA: WBC 37.1, hemoglobin 14.1, platelets 219. Chemistry: Sodium is 134, potassium 3.6, chloride 101, bicarb 21, BUN 43, creatinine 1.43, glucose is 137, lactate 2.8 repeat 1.5. The AST and ALT are within normal limits. Ammonia less than 10. CPK trended to 3371, troponin negative times two. ABG pH 7.426, pCO2 of 29.6, pO2 of 95.3. IMAGING STUDIES: Head CT showed no acute bleed or infarct. Normal examination. Chest x-ray showed mild vascular calcification in the aorta, no focal opacities. There is a questionable cavitary nodule in the right upper lobe. Humerus and elbow x-ray showed no fracture or dislocation. ASSESSMENT/PLAN: The patient is a 63 old male with history of splenectomy, benign prostatic hypertrophy (BPH), hypertension who presented with altered mental status. In the emergency department (ED) the patient was initially hypertensive as well as tachycardiac with possible atrial fibrillation with rapid ventricular response. He was admitted the Intensive Care Unit (ICU) for further management where he was treated with medications for blood pressure and for rate control with improvement in his hypertension and tachycardia. The patient was also found to have significantly increased leukocytosis as well as initially mildly elevated lactate at 2.8. The patient was treated for sepsis with Ceftaroline for broad spectrum antibiotics. He was not given fluid hydration due to his hypertensive emergency. 1. Leukocytosis with possible sepsis. The patient was thought to have leukocytosis secondary to cellulitis in the right arm although it does not appear significantly erythematous, or does not appear to have significant increased warmth. He does have edema in the right arm but the edema may also be from other etiologies such as possible upper extremity deep venous thrombosis (DVT) or thrombus. The patient does have some pain and tenderness to palpation with abdominal exam. His chest x-ray did not show any focal opacities suggestive of pneumonia but there is a possible lesion in the right upper lobe. The patient is status post splenectomy so he is at risk for severe infections with encapsulated organisms but he does not appear to have focal symptoms or findings suggestive of pneumonia or meningitis although he did present with AMS - Would check a CT chest without contrast and CT abdomen, pelvis for infectious workup. Will followup results of blood cultures. Will check a procalcitonin as well. Will send UA for infectious work up also - would consider LP if no improvement in mental status although patient already received broad spectrum antibiotics - The patient's lactic acid improved with very minimal fluid resuscitation. His blood pressure has continued to remain stable. - cont broad spectrum antibiotics. He was given ceftaroline which is a 5th generation antibiotic with broad coverage including MRSA and VRSA. It would cover any presumed organisms for cellulitis and also for gram neg organisms except pseudomonas. 2. Acute kidney injury (LJ) and rhabdomyolysis. - The patient's fluids were initially on hold given his hypertension. Now that the hypertension has improved would restart him with normal saline and increase to 150 mL an hour. Will continue to monitor CPK although it is not that elevated. Suspect most of his LJ is prerenal from dehydration. - will f/u UA to check for myoglobin - Will place the Jauregui catheter to more actually measure his urine output and continue to monitor electrolytes and CPK. - The patient had a metabolic acidosis likely secondary to his renal failure. He was noted to be more tachypneic, however and so an arterial blood gas (ABG) was done which does not show any significant acidosis on the ABG. Will continue to monitor. - will check BNP 3. Encephalopathy- The patient has altered mental status which was thought to be secondary to possible sepsis or from his hypertensive emergency. He continues to be confused and is unable to comply with a complete neurologic examination. His initial head CT was negative. If no improvement in mental status would get MRI for further evaluation including stroke work-up although does not clearly have localizing symptoms on exam he is unable to comply with neurologic examination. - Will continue monitor his mental status. He appears to be able to protect his airway currently and there is no indication at this time for intubation. However, if his mental status were to decompensate he would need intubation and mechanical ventilation likely for airway protection. - Would hold any sedating medications. - The patient's urine toxicology was positive only for opiates and cannabis. He denies a history of alcohol use or other drug use and so withdrawal is less likely. 4. Hypertension and new onset atrial fibrillation- patient has no prior hx of atrial fibrillation. on admission was in RVR, given metoprolol with improvement and labetalol with improvement in BP. Patient went back into a RVR overnight with HR 200's. He was given IV metoprolol 5mg with minimal improvement. His BP was stable and he denied any new symptoms. Diltiazem was given 10mg IVP and HR responded briefly. he was started then on diltiazem drip which was titrated to 15mg/hr. - patient cont to have HR in 130's so was given 1 time dose digoxin and cardiology was consulted for further management. Deep venous thrombosis (DVT) prophylaxis. The patient is full dose Lovenox for anticoagulation for Afib. GI prophylaxis. FULL CODE. Total critical care time spent not including procedures approximately 1 hour and 55 minutes. MTDD
[2019-07-01] MEDS ORDERED: VANCOMYCIN HCL 1,000 MG, VIAL MATE ADAPTER 1 EACH in D5W 250 ML IV SCH (07:30)
[2019-07-01] MEDS: METOPROLOL TART 25 MG TABLET PO SCH ×4 (07:56→23:31)
[2019-07-01] MEDS ORDERED: RIVAROXABAN 10 MG TAB (XARELTO) PO SCH ×2 (09:00→18:00)
[2019-07-01] MEDS: PIPERACILLIN/TAZOBACTAM SOD 3.375 GM in D5W MINI-BAG PLUS 50 ML IV SCH ×3 (09:03→19:19)
[2019-07-01] MEDS: ATORVASTATIN 20 MG TAB PO SCH (09:03)
[2019-07-01] MEDS: VANCOMYCIN HCL 1,000 MG, VIAL MATE ADAPTER 1 EACH in D5W 250 ML IV SCH (09:39)
[2019-07-01] MEDS ORDERED: VANCOMYCIN HCL 750 MG, VIAL MATE ADAPTER 1 EACH in D5W 250 ML IV ONE (10:00)
--- NOTE | 2019-07-01 10:24 | IPNPDOC ---
Text Note Date of Service The patient was seen on 07/01/19. NOTE Subjective: Patient is doing better today. He is alert, awake and oriented in the morning. He does not have any recollection of previous events. Patient stated that there is possibility that he could have taken some extra pills of Vicodin. Objective: VITAL SIGNS: Please see below GENERAL APPEARANCE: Well-nourished, well-developed, not in apparent distress HEENT: Normocephalic, atraumatic. Mucous members moist and pink CARDIOVASCULAR: Irregularly irregular rhythm. Radial pulses are intact. There is no lower extremity edema LUNGS: Bilateral crackles ABDOMEN: Abdomen is soft and nontender. MUSCULOSKELETAL: Limited range of motion of right upper extremity, erythema with swelling of right elbow NEUROLOGICAL: Cranial nerves II-12 are grossly intact. Speech is not dysarthric Assessment and plan: Patient is 63 years old male with past history of splenectomy, BPH, hypertension who did not see PCP for years was brought to the hospital by family with altered mental status. His son stated that he was found his father in his apartment covered by feces on the floor with altered mental status. Presumably patient was on the floor for past 2 days. Patient was confused and couldn't answer the questions. In emergency room patient was found to have right elbow contusion wit h erythema, x-ray was negative for fracture. His blood pressure was significantly elevated 219/103, he was found to have atrial fibrillation with rapid ventricular rate, elevated white blood count 37.5, sedimentation rate of 44, lactic acid of 2.8, creatinine 1.5 and CPK around 4000. 1) Sepsis On admission patient febrile, has increased leukocytosis, elevated lactic acid, atrial fibrillation with rapid ventricular rate Most likely secondary to right elbow cellulitis. No any other obvious source of infection. CT of abdomen/pelvis and CT chest did not show any acute infectious process Blood culture positive for gram-positive cocci I repeat blood culture in the morning. I escalated his antibiotics to vancomycin and Zosyn Patient received aggressive fluid resuscitation overnight, on auscultation he has a bilateral crackles, BNP significantly elevated I reduced IV fluid to 80 mL/h Patient continues to have significant leukocytosis. Dr Rebollar sent blood for flow cytometry. (2) New onset atrial fibrillation New onset of atrial fibrillation associated with rapid ventricular rate I changed to Lovenox to Xarelto Echo pending Labetalol IV when necessary Continue metoprolol by mouth Thyroid profile within normal limit (3) Rhabdomyolysis Secondary to fall Continue fluid resuscitation Continue monitor (4) Altered mental status/metabolic encephalopathy Resolved Most likely secondary to sepsis, pain and possible Vicodin overdose (5) Hypertensive emergency Resolved Blood pressures under control Continue metoprolol by mouth Labetalol IV when necessary VS,Fishbone, I+O VS, Fishbone, I+O Laboratory Tests 06/30/19 15:56 06/30/19 19:03 07/01/19 00:10 07/01/19 05:46 Vital Signs Date Time Temp Pulse Resp B/P (MAP) Pulse Ox O2 Delivery O2 Flow Rate FiO2 07/01/19 09:47 116 112/77 07/01/19 08:00 95.5 28 97 Room Air I&O- Last 24 Hours up to 6 AM 07/01/19 06:00 Intake Total 705 ml Output Total 350 ml Balance 355 ml ROXY SANDERS DO Jul 01, 2019 10:24
--- NOTE | 2019-07-01 11:15 | PHACANCOPD ---
PHARMACY VANCOMYCIN DOSING Pt Demographics Demographics Patient Age:63 , Weight:93.200 , Gender: male Adjusted Body Weight Date: 07/01/19, Adjusted Body Weight: Kg Events Past 24 Hours Events Past 24 Hours: YES: Fever, Elevation in WBC Vancomycin Vancomycin Target Ranges: 15-20 mcg/ml Vancomycin Load Y/N: Yes Load Dose Date Time Vancomycin Load Dose: 1750 MG Date: 07/01 Time:0900 Vancomycin Dose Date: 07/01/19. Current Vancomycin Dose: [1500 MG IV Q18H] Intermittent Dosing?: No Labs Labs Item Value Date Time White Blood Count 37.5 10^3/uL *H 06/30/19 1556 White Blood Count 37.1 10^3/uL *H 07/01/19 0010 White Blood Count 37.6 10^3/uL *H 07/01/19 0546 Erythrocyte Sedimentation Rate 44 mm/hr H 06/30/19 1556 Micro Microbiology 07/01/19 Blood Culture, Received Pending 06/30/19 Blood Culture - Preliminary, Resulted 06/30/19 Blood Culture - Preliminary, Resulted Creatinine Clearance Date:07/01/19. Creatinine Clearance: [~ 46 ML/MIN USING ADJUSTED BW]. Assessment and Plan Maintaining Current Dose?: Yes Reason for dose change: No Dose Change Pharmacist Note Pharmacist Note Date: 07/01/19. Pharmacist note: Pharmacy consulted for Vancomycin dosing due to positive prelim blood cultes for gram + cocci in clusters x2. Patient has no history of Vanco here at [facility]. We'll load him with 1750 mg and follow with 1500 mg iv q18h. Pharmacy will continue to monitor and make adjustments as needed. [facility] Jul 01, 2019 11:15
[2019-07-01 13:54] LABS: BASO # 0.1 10^3/uL (0.0-0.2); BASO % 0.3 % (0.0-1.0); HEMATOCRIT 39.3 % (42.0-52.0); HEMOGLOBIN 13.6 g/dl (13.5-17.5); LYMPH # 0.5 10^3/uL (1.5-5.0); LYMPH % 1.3 % (24.0-44.0); MEAN CORPUSCULAR HEMOGLOBIN 31.1 pg (27.0-33.0); MEAN CORPUSCULAR HGB CONC 34.6 g/dl (32.0-36.5); MEAN CORPUSCULAR VOLUME 89.7 fl (80.0-96.0); MONO % 2.7 % (0.0-5.0); NEUTROPHILS % 94.6 % (36.0-66.0); PLATELET COUNT, AUTOMATED 218 10^3/uL (150-450); RED BLOOD COUNT 4.38 10^6/uL (4.30-6.10)
--- NOTE | 2019-07-01 13:57 | ECGEPIP ---
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 Electronically Signed on 07-01-2019 13:57:36 EST by Luis F Santoyo
[2019-07-01 13:59] LABS: NEUTROPHILS # 33.4 10^3/uL (1.5-8.5); WHITE BLOOD COUNT 35.3 10^3/uL (4.0-10.0)
[2019-07-01] MEDS ORDERED: ACETAMINOPHEN TAB 650MG DOSE (2X325MG) PO PRN (14:30)
[2019-07-01 16:47] LABS: COMPLEMENT C3 125 MG/DL (90-180); COMPLEMENT C4 21 MG/DL (10-40); TOTAL PROTEIN 5.6 GM/DL (6.4-8.2)
[2019-07-01 16:48] LABS: CALCIUM LEVEL 8.2 MG/DL (8.8-10.2); CREATININE FOR GFR 1.88 MG/DL (0.70-1.30); GLOMERULAR FILTRATION RATE 38.7 (>49); POTASSIUM SERUM 3.4 MEQ/L (3.5-5.1)
[2019-07-01] MEDS: RIVAROXABAN 15 MG TAB (XARELTO) PO SCH (17:33)
[2019-07-01] MEDS: NORCO, ANEXSIA 5/325MG TABLET (HYDROcodone/ACETAMINOPHEN) PO PRN (18:49)
--- NOTE | 2019-07-01 19:01 | ECHO ---
DATE OF PROCEDURE: 07/01/2019 REFERRING PHYSICIAN: Dr. Reardon INDICATION: Atrial fibrillation. Sepsis. Height: 173 cm Weight: 93 kg DIMENSIONS: IVS: 1.0 LV: 4.5 LVPW: 1.1 LA: 4.1 Aorta: 3.4 IVC: 1.5 FINDINGS The study is of fair technical quality. The patient is in atrial fibrillation with rapid ventricular response averaging around 120 beats per minute. Left ventricle is normal size and has hyperdynamic contractility, I estimate left ventricular ejection fraction (LVEF) around 65-70%. No segmental wall motion abnormalities are noted based on fair views. Right ventricle also does not appear enlarged. Left atrium is mildly enlarged. Right atrium appears normal. Aortic, mitral and tricuspid valves were reasonably well seen and appear normal. Pulmonic valve was poorly seen. No pericardial effusion is noted. Inferior vena cava is of relatively small caliber and collapses with respiration indicative of normal or low central venous pressure. Doppler interrogation reveals no aortic stenosis or insufficiency. There is trace mitral insufficiency and no tricuspid insufficiency. Evaluation of diastolic function is inconclusive due to underlying atrial fibrillation. But tissue Doppler velocities of mitral annulus are relatively preserved. CONCLUSIONS 1. Study is of fair technical quality. 2. The patient is in atrial fibrillation with rapid ventricular response averaging approximately 120 bpm. 3. Normal left ventricle (LV) size with hyperdynamic LV systolic function. 4. No significant valvular disease. 5. Likely normal or low central venous pressure. 6. Unable to estimate pulmonary artery pressure but no signs to suggest pulmonary hypertension. COMMENT Subacute bacterial endocarditis (SBE) prophylaxis is not recommended. MTDD
[2019-07-01] MEDS ORDERED: NS 1,000 ML IV SCH (19:30)
[2019-07-01 20:33] LABS: CALCIUM LEVEL 9.1 MG/DL (8.8-10.2); CREATININE FOR GFR 2.15 MG/DL (0.70-1.30); GLOMERULAR FILTRATION RATE 33.1 (>49); MAGNESIUM LEVEL 2.8 MG/DL (1.8-2.4); PHOSPHORUS LEVEL 2.9 MG/DL (2.5-4.9); POTASSIUM SERUM 3.3 MEQ/L (3.5-5.1)
--- NOTE | 2019-07-01 22:43 | CR ---
DATE OF NEPHROLOGY CONSULTATION: 07/01/2019 REQUESTING PHYSICIAN: Dr. Dayron Reardon CONSULTING PHYSICIAN: Sosa Cid DO REASON FOR CONSULTATION: Oligoanuric acute renal failure. HISTORY OF PRESENT ILLNESS: Luis F Waite is a 63-year-old male previously unknown to me with a past medical history of hypertension, benign prostatic hypertrophy, splenectomy who presents with altered mental status. The history is obtained from discussion with the patient, his son and health care providers. As per the son the patient was last seen well on Friday. He lives alone and the son was not in touch with him until again on when he broke into the house as he had not heard from his father from a couple of days and found the patient on the floor covered in feces and confused. At baseline, the patient is independent, manages his finances, grocery shops, drives. In the emergency room, the patient was found to be febrile with T-max of 102.3 and hypertensive and in atrial fibrillation (A-Fib) with rapid ventricular response. Laboratory studies revealed elevated WBC and mildly elevated CPK and lactic acid. The patient was admitted into the intensive care unit and started on IV fluids and IV antibiotics, and diltiazem for rate control. His blood pressure improved significantly from systolic 219 on admission down to systolic 110 over 24 hours. The patient had a fall in urine output and laboratory studies revealed worsening renal function. Blood cultures returned back positive for gram-positive cocci in clusters. Nursing staff reports that the patient has made about 10 mL of urine over the past 4 hours despite receiving IV fluids. Nephrology evaluation was requested for management of oligoanuric renal failure. PAST MEDICAL HISTORY: Hypertensin. Benign prostatic hypertrophy (BPH). Splenectomy. Dyslipidemia. Chronic back pain. PAST SURGICAL HISTORY: History of back surgery. Splenectomy. FAMILY HISTORY: Father with diabetes. SOCIAL HISTORY He smokes a pack a day. There is reported marijuana use. There is no reported alcohol use or other drug use. HOME MEDICATIONS: Atorvastatin and Vicodin. ALLERGIES: No known drug allergies. REVIEW OF SYSTEMS: Somewhat limited due to mentation Constitutional: There fevers and chills. Eyes: There is no complaint of change in vision or tearing. ENT: There is no complaint of rhinorrhea or odinophagia. Cardiac: There is arrhythmia. There is no complaint of chest pain or leg swelling. Respiratory: There is no complaint of shortness of breath or cough. Gastrointestinal: There is no complaint of vomiting or diarrhea. Genitourinary: He is oligoanuric. Has a history of BPH. Hematologic: He denies easy bleeding or bruising or anticoagulant use. Musculoskeletal: He reports chronic back pain. He denies any leg swelling. Endocrine: He denies diabetes or thyroid problems. Neurologic: There is altered mental status. There is no reported history of seizures. Skin: Mild swelling around the right elbow, otherwise no open sores reported. Remainder review of systems is negative or as per HPI. PHYSICAL EXAMINATION: T-max 102.3, T-current 96.7, pulse 118, respiratory rate 24, blood pressure 141/74, saturating 94% on room air. Intake and output (I and Os) show intake of 3 liters and urine output of about 400 ml thus far. Weight on the bed scale today is 93.2 kg. General: The patient is seen in the intensive care unit lying in bed. Head of the bed elevated. Poor eye contact, but is awake, alert, cooperative with physical examination, answering simple questions appropriately and interactive and in no apparent respiratory distress. Neck veins are not elevated. Neck is supple. Mucous membranes are moist. Cardiac: Irregularly irregular, unable to appreciate any clear murmur. There is no edema in the legs. Peripheral pulses are palpable. Lungs are clear to auscultation. No rale or rhonchus. There is some tachypnea. Abdomen is soft. There are bowel sounds. Genitourinary: Shows Jauregui catheter draining some urine. Extremities: Negative for edema. Musculoskeletal: The patient is in obvious pain with movement of his back and upper limbs. Neurologic: He is cooperative with physical exam and answers simple questions appropriately, is interactive and conversational. LABS: White count 85.3, hemoglobin 13.6, platelets 218, sodium 137, potassium 3.6, bicarbonate 20, BUN 49, creatinine 1.8. BNP 2800, CK 3300, C3 and C4 are normal. Urinalysis shows 2+ protein and 3+ blood along with urinary WBC but negative for bacteria. Blood cultures grew gram-positive cocci in clusters times two. CT of the abdomen and pelvis shows no post obstructive uropathy. Lung imaging is negative for any fluid or effusions. INPATIENT MEDICATIONS The patient is ordered for normal saline at 60 mL an hour. Diltiazemello prasadip, Zosyn 3.375 gram IV every 6 hourly, vancomycin 750 IV times one, Tylenol as needed (p.r.n.), atorvastatin 20 mg by mouth daily, digoxin 0.125 mg IV times one. Diltiazem 10 mg IV stat. Metoprolol 25 mg by mouth every 6 hourly, Xarelto 15 mg by mouth daily at 6:00 p.m. PROBLEM: 1. Oligoanuric acute renal failure superimposed on CKD, stage II (baseline creatinine less than 1). Oligoanuric renal failure is felt to likely be secondary to acute infectious process. Patient's renal imaging was negative for any obstruction. His urinalysis shows an active sediment. Positive for blood and protein, and WBCs in the absence of bacteruria. He has fevers and blood cultures are positive for gram-positive cocci in clusters. Furthermore, his systolic blood pressure has dropped by about 100 points over the course of the past 24 hours. I feel that his renal failure is secondary to the above. His echocardiogram showed normal to low central venous pressure and I am continuing him on IV fluids, normal saline at 60 mL an hour. At present there is no urgent indication for dialysis, but we will monitor him closely for developing dialysis needs. Serologies have been sent and pending. 2. Sepsis. T-max 102.3, white count 35, blood cultures with gram-positive cocci and clusters. Source is uncertain. There is no bacteriuria. The patient reports significantly worsening back pain. I suggest that he should have a CT of his spine to make sure that there is no spinal abscess. Echocardiogram is noted. He might need a transesophageal echocardiogram (ERIKA) to rule out endocarditis depending on his clinical course. He is on broad-spectrum antibiotics. Vancomycin and Zosyn and afebrile now. Repeat blood cultures are pending. I do not feel that his right arm is the source of infection. 3. New onset atrial fibrillation. On diltiazem drip, rate controlled and anticoagulated with renally dosed Xarelto. Echo noted with low to normal CVP. Continuing gentle IV fluids. Thank you for involving me in the care of Mr. Waite. I will be happy to follow him along with you. Plan of care was discussed with Dr. Rebollar at the bedside.
[2019-07-02] VITALS (21 sets, daily range): BP systolic 104–146; BP diastolic 62–90
[2019-07-02] MEDS: PIPERACILLIN/TAZOBACTAM SOD 3.375 GM in D5W MINI-BAG PLUS 50 ML IV SCH ×4 (01:08→20:13)
[2019-07-02] MEDS: VANCOMYCIN HCL 1,000 MG, VIAL MATE ADAPTER 1 EACH in D5W 250 ML IV SCH (02:22)
[2019-07-02] MEDS: diltiaZEM 125 MG in NS 100 ML IV SCH ×3 (03:15→20:13)
[2019-07-02] MEDS ORDERED: VANCOMYCIN HCL 500 MG in D5W MINI-BAG PLUS 100 ML IV SCH ×2 (04:00→22:00)
[2019-07-02] MEDS: METOPROLOL TART 25 MG TABLET PO SCH (05:32)
[2019-07-02 07:23] LABS: ALBUMIN 2.1 GM/DL (3.2-5.2); CALCIUM LEVEL 8.2 MG/DL (8.8-10.2); CREATININE FOR GFR 1.54 MG/DL (0.70-1.30); GLOMERULAR FILTRATION RATE 48.7 (>49); POTASSIUM SERUM 3.3 MEQ/L (3.5-5.1); TOTAL PROTEIN 5.6 GM/DL (6.4-8.2)
[2019-07-02 07:27] LABS: HEMATOCRIT 36.8 % (42.0-52.0); MEAN CORPUSCULAR HEMOGLOBIN 31.3 pg (27.0-33.0); MEAN CORPUSCULAR HGB CONC 35.3 g/dl (32.0-36.5); MEAN CORPUSCULAR VOLUME 88.7 fl (80.0-96.0); PLATELET COUNT, AUTOMATED 230 10^3/uL (150-450); RED BLOOD COUNT 4.15 10^6/uL (4.30-6.10)
[2019-07-02 07:31] LABS: WHITE BLOOD COUNT 35.2 10^3/uL (4.0-10.0)
--- NOTE | 2019-07-02 07:58 | IPN ---
DATE: 07/02/2019 CHIEF COMPLAINT: Post admission day 2 right elbow cellulitis. HISTORY OF PRESENT ILLNESS: This is a 63-year-old man who was found down. He appeared to have pressure injury and cellulitis of his right elbow. We are treating this with IV antibiotics. He is doing well. PHYSICAL EXAM: 63-year-old man. He is lying supine. He responds a little more appropriately this morning. He is able to flex and extend his elbow for range of motion 0-135 degrees. Forearm compartments are soft. There is a little bit of swelling to the proximal forearm and above the elbow but no skin breakdown. No tracking or spreading of redness. There is mild warmth there. Hands warm and well perfused. Good radial pulse. WBC from yesterday is trending slightly down but is still at 35. ESR has not been reordered and neither is a repeat CRP. ASSESSMENT/PLAN: This 63-year-old man is doing well on vancomycin piperacillin and tazobactam. Blood cultures appear positive for Staphylococcus aureus. Overall low, I have a low clinical suspicion that he has septic right elbow. The surgeon animal cruelty investigation supervisor for this weekend will have to follow this man as well as into next week as I am away starting today in 5-o'clock.
[2019-07-02] MEDS: ATORVASTATIN 20 MG TAB PO SCH (08:44)
[2019-07-02] MEDS: NORCO, ANEXSIA 5/325MG TABLET (HYDROcodone/ACETAMINOPHEN) PO PRN (08:46)
--- NOTE | 2019-07-02 08:50 | REP ---
INDICATION: Abscess, bacteremia PROCEDURE: CT cervical spine, axial acquisitions with multiplanar re-formations. COMPARISON STUDIES: No prior similar studies FINDINGS: Degenerative disc disease is progressed for age. There are anterior and posterior osteophytes, and vertebral body flattening, more notable at C4 levels and below. Craniovertebral junction is unremarkable. 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 There is multilevel degenerative foraminal narrowing and multilevel canal narrowing secondary to osteophyte formation. With indication of bacteremia and concern for infection, there is no evidence of osseous or soft tissue infection. No evidence of abscess. IMPRESSION: 1. CT cervical spine evidences advanced degenerative changes with osteophyte formation and multilevel foraminal narrowing. 2. 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 Facet fusion seen at C3-C5 bilateral. 3. No evidence of osseous or soft tissue infection. No evidence of osteomyelitis, diskitis, or abscess. Electronically Signed by Carlos Shepard MD 07/02/2019 08:42 A
--- NOTE | 2019-07-02 08:52 | REP ---
INDICATION: Bacteremia PROCEDURE: CT lumbar spine, axial images with multiplanar re-formations. COMPARISON STUDIES: No prior similar studies FINDINGS: There is [id number] multilevel degenerative disc disease with disc space narrowing and endplate changes. There is more notable disc space narrowing and L5 S1 which may be ankylosed. No definite canal stenosis. There is sclerosis of the facet joints L3-4, L4-5 and L5 S1 level. There appears to be a prior laminectomy centered at the L4-5 disc level. Consolidation is seen at the right lung base. Aorta, kidneys and soft tissues appear unremarkable. There is no evidence of osseous focal infection or osseous destruction. CONCLUSION: 1. No acute findings. 2. No evidence of osteomyelitis, diskitis or abscess. Degenerative changes. 3. Previous laminectomy site at the L4-5 level. Electronically Signed by Carlos Shepard MD 07/02/2019 08:44 A
--- NOTE | 2019-07-02 08:54 | REP ---
INDICATION: Bacteremia. PROCEDURE: CT thoracic spine COMPARISON STUDIES: No prior similar studies FINDINGS: There is diffuse osseous degenerative change with anterior osteophytic spurring and disc space narrowing more notable at the cervical thoracic junction and the thoracolumbar region. There is no evidence of fracture or malalignment. No definite limiting canal or foraminal stenosis within the thoracic spine. There is no evidence of focal infection or abscess or bony destruction in the osseous thoracic spine. There is a consolidation at the right lung base. This is better described on CT chest from 07/01/2019. IMPRESSION: No acute findings. Degenerative changes without evidence of abscess or focal infection. No osseous destruction identified. Electronically Signed by Carlos Shepard MD 07/02/2019 08:45 A
[2019-07-02] MEDS ORDERED: NICOTINE 21MG/24HR 1 EA TRANSDERMAL TD SCH (09:00)
--- NOTE | 2019-07-02 09:26 | IPN ---
DATE: 07/01/2019 CHIEF COMPLAINT: Post admission day #1 right elbow cellulitis. HISTORY OF PRESENT ILLNESS: This 63-year-old man was found down in his home. He had an elevated white blood cell count. Right elbow is swollen. This appears to be cellulitis, and we have started treatment with antibiotics. He is being managed by the hospitalist service as well as being admitted to the intensive care unit (ICU) monitoring for hypertensive emergency. PHYSICAL EXAMINATION: He is a well appearing man. He is lying supine in bed. He responds a little bit more this morning. He is here again with his son, who says that he is a little bit more this morning. Inspection of the elbow reveals no tracking redness. Same exam as yesterday , that is to say that he has full range of motion and no obvious effusion to the elbow. Hands warm and well perfused with strong radial pulse. Right upper extremity ultrasound ordered with a upper extremity. This was negative for deep venous thrombosis. ASSESSMENT AND PLAN: 63-year-old man who appears to have cellulitis of his right elbow combined with pressure injury. There are no signs of compartment syndrome. No signs of septic joint. Our preference is to continue on with IV antibiotics and monitor this daily to check for spreading redness versus resolution as well as continue to monitor markers to ensure good response to the antibiotics. Will follow him for the next 2 days; however, I am away for a week and the orthopedic surgeon hospital education coordinator for the weekend and then the next week we will have to check on his progress.
[2019-07-02 10:51] LABS: BASO # 0.1 10^3/uL (0.0-0.2); BASO % 0.2 % (0.0-1.0); HEMATOCRIT 38.1 % (42.0-52.0); HEMOGLOBIN 13.1 g/dl (13.5-17.5); LYMPH # 0.6 10^3/uL (1.5-5.0); LYMPH % 1.8 % (24.0-44.0); MEAN CORPUSCULAR HEMOGLOBIN 30.6 pg (27.0-33.0); MEAN CORPUSCULAR HGB CONC 34.4 g/dl (32.0-36.5); MONO # 1.4 10^3/uL (0.0-0.8); MONO % 4.3 % (0.0-5.0); NEUTROPHILS % 91.1 % (36.0-66.0); PLATELET COUNT, AUTOMATED 225 10^3/uL (150-450); RED BLOOD COUNT 4.28 10^6/uL (4.30-6.10)
[2019-07-02 10:53] LABS: NEUTROPHILS # 30.2 10^3/uL (1.5-8.5); WHITE BLOOD COUNT 33.2 10^3/uL (4.0-10.0)
[2019-07-02 10:58] LABS: BILIRUBIN,TOTAL 0.9 MG/DL (0.2-1.0); CALCIUM LEVEL 8.2 MG/DL (8.8-10.2); CREATININE FOR GFR 1.7 MG/DL (0.70-1.30); GLOMERULAR FILTRATION RATE 43.4 (>49); POTASSIUM SERUM 3.5 MEQ/L (3.5-5.1); TOTAL PROTEIN 5.8 GM/DL (6.4-8.2)
--- NOTE | 2019-07-02 11:00 | IPN ---
CARDIOLOGY PROGRESS NOTE: DATE: 07/02/2019 Mr. Waite is seen and examined at bedside in intensive care unit (ICU). He appears to be doing much better. He is more alert and interactive. He continues to be afebrile and heart rate is improved from admission, however, still borderline tachycardic near 120 as he continues on diltiazem drip at 15/hr and oral metoprolol, and blood pressures are maintaining in the 120s/80s. He denies any complaints today, although he is still very sick. He denies chest pain, shortness of breath, orthopnea, paroxysmal nocturnal dyspnea (PND), coughing, wheezing, abdominal pain, nausea, vomiting. PHYSICAL EXAMINATION: Vital Signs: Temperature 96.6, pulse 112, respirations 22, blood pressure 126/80, mean arterial pressure (MAP) 95, pulse oximetry 93% on room air. Input and Output (I and O): 3620 in, 1095 out with a net positive 2525 mL. Weight is down from 95 kg on admission to 93.3 kg documented this morning. Thus far, he has put out 470 mL of urine overnight. He is resting comfortably in bed. No acute distress. Alert and oriented times three and appropriately conversant. Head: Normocephalic, atraumatic. Moist mucous membranes. No appreciable jugular venous distention (JVD). Neck is supple. Heart has a regular rhythm with tachycardic rate, without any appreciable murmur, clicks or gallops, or any displacement of the point of maximum impulse (PMI). Diminished lung sounds, otherwise clear throughout. No wheezing, rhonchi or rales. No accessory muscle use. Pulses 2+ bilaterally. No lower extremity edema. Jauregui catheter in place with clear urine output. Right upper extremity swollen and erythematous at the elbow downwards with tenderness to palpation. Echo from 06/30/2019 reads patient is in AFib with RVR averaging 120 beats per minute. Normal left ventricular size, hyperdynamic systolic function. No valvular disease. Likely normal low CVP. Unable to assess pulmonary pressures. Ejection fraction (EF) is 65-70%. LABS: WBC 35.2, hemoglobin and hematocrit (H and H) 13 and 36.8, platelets 230. Sodium and potassium 137 and 3.3. BUN and creatinine 48 and 1.54, decreased from creatinine of 2.15 yesterday. GFR is up to 48.7 today, from 33 yesterday. AST and ALT 138 and 67. CPK improved from 3371 yesterday to 1138 today. BNP down from 2878 on 07/01/2019 to 1394 today. Initial blood cultures from 06/30/2019 are positive for Staphylococcus aureus times two sets. Repeat blood culture negative at 24 hours. Urine culture also positive for Staphylococcus aureus. Sensitivities are pending. ASSESSMENT AND PLAN: Mr. Waite is a 63-year-old brought in after he was found down on the floor. Has been noncompliant with primary care followup. Has not seen a physician for many years. Upon admission found to be septic and what appears to be new onset atrial fibrillation (AFib) and rapid ventricular response (RVR) with some improvement on diltiazem drip and oral metoprolol. 1. Likely new onset atrial fibrillation (AFib) with RVR likely secondary to his septic state which is still currently being worked up. His heart rate is better controlled on his diltiazem drip and on oral metoprolol 25 mg every 6 hours. However, heart rate is still elevated. Although he is asymptomatic, will increase dose to Lopressor 50 mg every 6 hours if his blood pressures allow. Continue monitoring on telemetry. He has been started on anticoagulation. Xarelto is appropriate. Goal is to ultimately get his heart rate below 110 and wean him of the diltiazem drip - rate at 15 mL/h this morning. Monitor closely for arrhythmias. Should he not be well controlled or convert back to normal sinus tomorrow, amiodarone and digoxin remain options. 2. Hypertension. Blood pressures are well controlled. Continue close monitoring. Plan to wean off diltiazem drip as we increase his Lopressor. 3. Sepsis. The source at this time is not quite clear and is being worked up. He does have staph bacteremia with sensitivities pending. Staph also in his urine. He also has persistently elevated white count that does not appear to be budging. Has remained above 35. He may have a concomitant malignancy that might explain his leukocytosis along with an infection. He is on broad-spectrum antibiotics. Echo does not show any signs of infective endocarditis. Other sources are being worked up as he remains on broad antibiotics. 4. Elevated brain natriuretic peptide (BNP). It is trending downward despite fluid hydration. He continues on 60 mL normal saline today. He has no signs of volume overload and echo does not reveal systolic or diastolic dysfunction. Monitor lung status. Elevated BNP likely secondary to his acutely ill septic state and AFib with RVR. Addendum MD Zoraida: Patient seen and examined. Management plan was discussed with . Agree with the note above. MTDD
--- NOTE | 2019-07-02 11:14 | IPNPDOC ---
Text Note Date of Service The patient was seen on 07/02/19. NOTE Subjective: Patient is alert, awake and oriented in the morning, however later today he developed some visual hallucinations. His son was at bedside and he provided information that 2 years ago patient had spinal surgery and developed osteomyelitis after the procedure. The surgery was done and [facility] in [facility]. The son states that the patient had almost 1 year antibiotic therapy. Objective: VITAL SIGNS: Please see below GENERAL APPEARANCE: Well-nourished, well-developed, not in apparent distress HEENT: Normocephalic, atraumatic. Mucous members moist and pink CARDIOVASCULAR: Irregularly irregular rhythm. Radial pulses are intact. There is no lower extremity edema LUNGS: Bilateral crackles ABDOMEN: Abdomen is soft and nontender. MUSCULOSKELETAL: Limited range of motion of right upper extremity, erythema with swelling of right elbow NEUROLOGICAL: Cranial nerves II-12 are grossly intact. Speech is not dysarthric Back: Patient denies any tenderness to palpation over the neck, thoracic and lumbar spine. He complains on the pain on the left gluteal area INDICATION: Atrial fibrillation. Sepsis. Height: 173 cm Weight: 93 kg DIMENSIONS: IVS: 1.0 LV: 4.5 LVPW: 1.1 LA: 4.1 Aorta: 3.4 IVC: 1.5 FINDINGS The study is of fair technical quality. The patient is in atrial fibrillation with rapid ventricular response averaging around 120 beats per minute. Left ventricle is normal size and has hyperdynamic contractility, I estimate left ventricular ejection fraction (LVEF) around 65-70%. No segmental wall motion abnormalities are noted based on fair views. Right ventricle also does not appear enlarged. Left atrium is mildly enlarged. Right atrium appears normal. Aortic, mitral and tricuspid valves were reasonably well seen and appear normal. Pulmonic valve was fully seen. No pericardial effusion is noted. Inferior vena cava is relatively small caliber and collapses with respiration indicative of normal or low central venous pressure. Doppler interrogation reveals no aortic stenosis or insufficiency. There is trace mitral insufficiency and no tricuspid insufficiency. Evaluation of diastolic function is inconclusive due to underlying atrial fibrillation. But tissue Doppler velocities of mitral annulus are relatively preserved. CONCLUSIONS 1. Study is of fair technical quality. 2. The patient is in atrial fibrillation with rapid ventricular response averaging approximately 120 bpm. 3. Normal left ventricle (LV) size with hyperdynamic LV systolic function. 4. No significant valvular disease. 5. Likely normal or low central venous pressure. 6. Unable to estimate pulmonary artery pressure but no signs to suggest pulmonary hypertension. Assessment and plan: Patient is 63 years old male with past history of splenectomy, BPH, hypertension who did not see PCP for years was brought to the hospital by family with altered mental status. His son stated that he was found his father in his apartment covered by feces on the floor with altered mental status. Presumably patient was on the floor for past 2 days. Patient was confused and couldn't answer the questions. In emergency room patient was found to have right elbow contusion with erythema, x-ray was negative for fracture. His blood pressure was significantly elevated 219/103, he was found to have atrial fibrillation with rapid ventricular rate, elevated white blood count 37.5, sedimentation rate of 44, lactic acid of 2.8, creatinine 1.5 and CPK around 4000. 1) Sepsis On admission patient febrile, has increased leukocytosis, elevated lactic acid, atrial fibrillation with rapid ventricular rate Most likely secondary to right elbow cellulitis. No any other obvious source of infection. CT of abdomen/pelvis and CT chest did not show any acute infectious process Repeated blood culture positive for Staphylococcus aureus, urine culture positive for Staphylococcus aureus I talked to Dr. Jameson she recommended to restart vancomycin IV Continue gentle hydration. His urine output improved, unlikely patient will need dialysis Patient continues to have significant leukocytosis. Due to information about previous spinal osteomyelitis I will proceed with CT of the neck, thoracic and lumbar spine (2) New onset atrial fibrillation New onset of atrial fibrillation associated with rapid ventricular rate. Most likely secondary to sepsis I changed to Lovenox to Xarelto Echo negative for vegetation, patient will need transesophageal echocardiogram due to staph aureus bacteremia Labetalol IV when necessary Continue metoprolol by mouth Thyroid profile within normal limit (3) Rhabdomyolysis Secondary to fall Continue fluid resuscitation CPK improved (4) Altered mental status/metabolic encephalopathy Patient continues to have altered mental status most likely secondary to sepsis (5) Hypertensive emergency Resolved Blood pressures under control Continue metoprolol by mouth Labetalol IV when necessary Electrolyte imbalance Potassium replaced VS,Fishbone, I+O VS, Fishbone, I+O Laboratory Tests 07/01/19 13:42 07/01/19 16:07 07/01/19 20:03 07/02/19 04:54 Vital Signs Date Time Temp Pulse Resp B/P (MAP) Pulse Ox O2 Delivery O2 Flow Rate FiO2 07/02/19 09:17 36 07/02/19 06:00 112 126/80 (95) 93 Room Air 07/02/19 04:00 96.6 I&O- Last 24 Hours up to 6 AM 07/02/19 06:00 Intake Total 3975 ml Output Total 1065 ml Balance 2910 ml ROXY SANDERS DO Jul 02, 2019 11:14
[2019-07-02 11:18] LABS: ERYTHROCYTE SEDIMENTATION RATE 61 mm/hr (0-20)
[2019-07-02] MEDS: METOPROLOL TART 50 MG TAB PO SCH ×2 (11:54→17:32)
[2019-07-02] MEDS ORDERED: KCL 20MEQ IN D5W 1000ML 1,000 ML IV SCH (12:00)
[2019-07-02] MEDS ORDERED: PROHANCE 279.3MG/ML 5ML VIAL (A9576) As Ordered ONE (16:13)
[2019-07-02] MEDS: RIVAROXABAN 15 MG TAB (XARELTO) PO SCH (17:32)
--- NOTE | 2019-07-02 17:38 | ECGEPIP ---
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 Electronically Signed on 07-02-2019 17:37:55 EST by Jonel Parmar
--- NOTE | 2019-07-02 17:44 | REPVR ---
PROCEDURE INFORMATION: Exam: MR Lumbar Spine Without and With Contrast. Exam date and time: 07/02/2019 12:17 PM Age: 63 years old Clinical indication: Low back pain; Prior surgery; Surgery date: 6+ months; Surgery type: Laminectomy; Patient HX: R/O abcess; Additional info: Staph aureus bacteremia back pain to left groin TECHNIQUE: Imaging protocol: Multiplanar magnetic resonance images of the lumbar spine without and with intravenous contrast. Contrast material: PROHANCE; Contrast volume: 9 ml; Contrast route: IV; COMPARISON: MRI-Spine, L.S. without con 08/13/2012 4:34 PM FINDINGS: Vertebrae: Heterogeneous loss of marrow signal throughout the lumbar and lower thoracic vertebrae consistent with changes related to chronic anemia or other myeloproliferative abnormality. Mottled heterogeneous enhancement of the posterior aspect of L4 and minimally the posterior right paracentral aspect of L3, and most pronounced superiorly at L2 are worrisome for osteomyelitis. Status post bilateral laminectomies at L4 and L5. Spinal cord: Normal signal. No cord compression. L1-L2: There is a moderate central spinal stenosis at L1-L2 secondary to diffuse annular bulging, thickened ligamentum flavum with facet joint arthropathy. L2-L3: There is a severe central spinal stenosis at L2-L3 secondary to diffuse annular bulging, thickened ligamentum flavum with facet joint arthropathy. L3-L4: No significant disc disease. No significant spinal canal or neural foraminal stenosis. L4-L5: No significant disc disease. No significant spinal canal or neural foraminal stenosis. L5-S1: There is bilateral facet joint arthropathy at L5-S1. Soft tissues: There is a irregularly shaped fluid collection in the posterior paraspinal soft tissues measuring 2.5 x 3.7 cm which is T1 intermediate T2 bright and demonstrates peripheral enhancement following intravenous gadolinium administration. The posterior paraspinal fluid collection connects to a elongated fluid collection in the epidural space extending from mid L4 superiorly to the base of L3. The fluid is resulting in compression of the traversing nerve roots with a moderate to severe central spinal stenosis from L3-S1. Findings are compatible with a posterior paraspinal and epidural abscess. Other findings: There is moderate bilateral foraminal stenosis throughout the lumbar spine. IMPRESSION: 1. Heterogeneous loss of marrow signal throughout the lumbar and lower thoracic vertebrae consistent with changes related to chronic anemia or other myeloproliferative abnormality. 2. Mottled heterogeneous enhancement of the posterior aspect of L4 and minimally the posterior right paracentral aspect of L3, and most pronounced superiorly at L2 are worrisome for osteomyelitis. 3. Status post bilateral laminectomies at L4 and L5. 4. Findings compatible with a posterior paraspinal and right epidural abscess extending from L3-S1 with marked compression of the traversing nerve roots. Electronically signed by: Abelino Tipton On 07/02/2019 17:43:45 PM
[2019-07-02 17:52] LABS: HEPATITIS B SURFACE ANTIBODY NEGATIVE (POSITIVE)
--- NOTE | 2019-07-02 17:52 | CR ---
DATE OF CONSULTATION: 07/01/2019 REQUESTING PROVIDER: Dr. Alvarenga. REASON FOR CONSULTATION: Rapid atrial fibrillation with rapid ventricular response (RVR). Primary care provider (PCP): as reported per staff is Roxy Villa. HISTORY OF PRESENT ILLNESS: Mr. Waite is a 63-year-old gentleman that has not sought medical care or followed up with a physician over the past couple of years. He was brought in after he was found unresponsive on the floor by his son. It is unclear how long he had been on the floor. There is limited history at this time given his lethargic state; however, cardiology has been consulted, as patient was found to be what appears to be new onset atrial fibrillation with rapid ventricular response upon admission, with a heart rate in the 140s and 150s. Thus far, he has received 50 mg by mouth Lopressor in the emergency room (ER) and 20 mg intravenous (IV) labetalol with mild improvement. However, again throughout the night, he continued to have elevated heart rate and per report, became diaphoretic. He was administered IV diltiazem and Lopressor and thereafter started on Cardizem drip. Also has received thus far one dose of IV digoxin 0.125 mg. When examined this morning, he continues to be quite lethargic; He was able to answer appropriately, however, a very limited historian. His son is in the room, who believes Mr. Waite was on the floor for two days, and is unsure of any prior cardiac history in the patient or in the family. On the monitor, his heart rate seems improved, down to the 120s in atrial fibrillation currently. Also of note, he had significantly elevated blood pressures on admission, 200s/100s. At the time of our exam, he is now doing fairly well, with blood pressures in the 130s/80s and is unable to relay any concerns at this time. PAST MEDICAL HISTORY: 1. Benign prostatic hypertrophy (BPH). 2. Chronic low back pain. 3. Hypertension. 4. Rectal bleeding. 5. Hypercholesterolemia. 6. Nicotine dependence. 7. Elevated PSA with hematuria. PAST SURGICAL HISTORY: 1. 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 2. Back surgery, 2016. 3. Carpal tunnel, left arm, 2019. FAMILY HISTORY: Father is . They are unsure of any cardiac history in the family. SOCIAL HISTORY: Patient is a prison smoker, about 3-4 cigarettes a day. He owns his own home with son providing support. He is . Also uses marijuana daily. Per his chart, he does not drink alcohol or use any illicit substances. 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 ALLERGIES: None known. REVIEW OF SYSTEMS: Limited, given patient's fatigued state; however, he denies any complaints when asked at bedside. 12-point ROS reviewed. Per the son, he had no complaints leading up to this episode of unresponsiveness. PHYSICAL EXAMINATION: VITAL SIGNS: Temperature 95.5, pulse 122, respirations 28, blood pressure 151/95, mean arterial pressure (MAP) of 113, pulse oximetry 97% on room air. INTAKE AND OUTPUT (I and O): Since his admission late night yesterday, 120 mL in, zero out. He is laying in bed, visibly lethargic and fatigued, resting comfortably, no acute distress. Answers appropriately to his name, date of , location and year. HEAD: Normocephalic, atraumatic, with extraocular movements intact. Anicteric sclerae. Neck is supple without jugular venous distention (JVD). CARDIAC: Rate is tachycardic with irregular rhythm without any appreciable murmur, clicks or gallops. LUNGS: Sounds are diminished with poor inspiratory effort, given his fatigue. Has rhonchi on right lower base. No appreciable wheezing or rales. Soft, nontender, nondistended abdomen. No lower extremity edema. 2+ pulses throughout. No visible skin lesions or rashes. GENITOURINARY (): Jauregui catheter in place with clear output. LABORATORY DATA: WBC 37.6, hemoglobin and hematocrit (H and H) 14.5 and 43.6, platelets 223. Sodium and potassium 137 and 3.6, chloride and bicarbonate 104 and 20, BUN and creatinine 49 and 1.8 with a GFR of 40, magnesium 2.8. BNP elevated at 2878. Procalcitonin 13.86. His lactic acid on admission was 2.8 and then it proved to 1.5 four hours later. CPK 4132 on admission, improving to 3371 on recheck. TSH 0.329 with a Free T4 of 1.21. CRP at 3170. Erythrocyte sedimentation rate at 44. Troponin, total of 3 sets have been negative at 0.09, 0.09 and 0.06. Arterial blood gas (ABG): pH 7.436 with pCO2 at 29.6 and a bicarbonate 19. Urine toxicology positive for opioids and cannabis, but negative alcohol and salicylates. Blood cultures this morning are gram positive cocci in clusters in two sets. A repeat is pending. IMAGING: Head CT is negative. Chest x-ray also negative. Chest CT revealed slight interstitial coarsening in the lower lobes, which likely reflects chronic change, otherwise negative, without any pulmonary nodules. CT of abdomen and pelvis revealed slight pulmonary interstitial coarsening with minimal bilateral lower lobe fibroatelectatic change, fusion of lower lumbar spine, status post splenectomy. Otherwise, negative. Remaining imaging negative for a fracture or a deep venous thrombosis (DVT). ASSESSMENT AND PLAN: Mr. Waite is a 63-year-old ill male who has not sought care for quite some time and was brought in after being found unresponsive on the floor. He was septic on admission, source unclear. We have been consulted for what appears to be new onset of atrial fibrillation with uncontrolled rate into the 150s, 160s. 1. New onset atrial fibrillation with rapid ventricular response. This is likely induced by his septic state. At this point, a source of infection is being worked up. He continues in atrial fibrillation this morning; however, rate is better controlled. Critical care team has started Cardizem drip and we will adjust his Lopressor to 25 mg by mouth every 6 hours with holding parameters. His CHADS2-VASC score at this point is 1 for his history of hypertension; however, we suspect he may indeed have more comorbidities. Nonetheless, at this point we recommend holding off on anticoagulation, given his ill state and he may require an urgent or emergent procedure in the near future. Echocardiogram has been ordered. Will also reassess EKG tomorrow morning. Continue monitoring on telemetry. Suspect his heart rate will also improve as he recovers from his septic state. 2. Hypertensive emergency. Mr. Waite had blood pressures in 200s/100s on admission. He has a documented history of hypertension; however, it appears on his home medication list that there is no antihypertensive. He is now on Cardizem drip, oral Lopressor, and as needed labetalol, with improved blood pressures as of this morning. Continue monitoring. 3. Elevated BNP in the 2800s. He does not have any overt signs of decompensated congestive heart failure (CHF). Echocardiogram is pending. At this point, we would recommend holding off on any diuresis, given his septic state and kidney injury. Monitor volume status, strict Intake and output (I and O), and daily weights. 4. Sepsis with unclear source. He has severe leukocytosis that is not budging, tachycardic with fever of 102.3 on admission, and tachypnea. Antibiotics have been started by the primary team and sepsis workup is in the process. There is concern for possible underlying malignancy, especially in light of such elevated white count. Workup is in process. As his sepsis resolves, hopefully his cardiac condition will also improve. If needed, fluid can be given judiciously with close monitoring of his volume status and blood pressure, as he currently does not appear on exam to be hypervolemic. Thank you for this consult. We shall be happy to follow along. Please do not hesitate to call us for any questions. My faculty preceptor for this patient encounter was physically present during the encounter and was fully available. All aspects of the patient interview, examination, medical decision making process, and medical care plan development were reviewed and approved by the faculty preceptor. The faculty preceptor is aware and concurs with the plan as stated in the body of this note and will attest to such by his/her co-signature. Addendum MD Zoraida: Patient seen and examined. Management plan was discussed with . Agree with the note above. Principally patient has sepsis (so far unclear origin) and AF and HTN are likely secondary to stress of infection and pain. BOYDD
[2019-07-02 18:02] LABS: HEPATITIS B SURFACE ANTIGEN NEGATIVE (NEGATIVE)
--- NOTE | 2019-07-02 18:17 | IPN ---
DATE: 07/02/2019 Luis F is seen and examined this morning at the bedside in the intensive care unit. His son is present and the son tells me that the patient has been intermittently confused. However, at the time of my visit, the patient was oriented times three and answering all questions appropriately and laughing and making jokes. He has been afebrile overnight and has had improvement in urine output and has been on gentle IV fluids. His white count remains persistently elevated, and CT scan of his spine did not demonstrate any acute infectious spinal process. He is pending infectious disease evaluation. He denies shortness of breath. He complains of pain in the right arm. Vital signs: Temperature 97.8, pulse 74, respiratory rate 31, blood pressure 115/69, saturating 96% on room air. Intake yesterday was 3.6 liters, urine output yesterday was 1100, urine output thus far this morning is 600 mL. Weight in the bed scale today is 93.3 kg. General: The patient is seen lying in bed in the intensive care unit, head of the bed elevated awake, alert, oriented, and interactive. Jugular veins are not elevated. Neck is supple. Pupils are round and reactive to light. Heart sounds are tachycardiac. I am unable to appreciate a murmur. There is no peripheral nor dependent edema. Lung sounds are distant, but there is no crackle, rale or rhonchus. There is no accessory muscle use. He is comfortable on room air. Abdomen is soft and nontender. There is an old scar at the left upper quadrant. Genitourinary: Shows Jauregui catheter with clear urine output. Lower extremities are negative for edema, clubbing, cyanosis. Right upper extremity is swollen and erythematous, especially at the elbow. Neurologic: He is awake, alert and oriented times three at the time of my visit, cooperative with physical exam. LABORATORY: White count 35, hemoglobin 13, platelets 230, sodium 137, potassium 3.3, creatinine 1.5, CPK is down to 1100 from 3300 yesterday, BNP is down to 1300 from 2800 yesterday. Blood cultures grew Staphylococus (staph) aureus. Urine culture also grew staph aureus. IMAGING STUDIES: CT of the spine failed to show any infectious process. Echocardiogram showed low to normal CVP with ejection fraction of 65%. PROBLEMS: 1. Nonoliguric acute kidney injury on chronic kidney disease, stage II. Baseline creatinine less than 1. He was felt to be dry. His echocardiogram showed low to normal CVP. He is septic with staph aureus in the blood and the urine. He is receiving gentle IV fluids. His renal function and urine output are improving. Hemodynamically he is stable with well controlled blood pressures. 2. Hypertension. Complicated by new onset atrial fibrillation with rapid ventricular response (RVR). He is on diltiazem drip and is also receiving oral metoprolol. He still remains tachycardiac. He is anticoagulated with renally dosed Xarelto. His blood pressures are acceptable. There is no documented hypotension. Cardiology is following. 3. Sepsis. Staph aureus in the blood and the urine, source is not clear. His transthoracic echo did not show any overt sign of infective endocarditis. His CT of the spine did not show any infectious process. There is cellulitis of the right elbow. His white count remains significantly elevated despite broad-spectrum antimicrobials. He has a mild lactic acidosis. Infectious disease evaluation is pending. He may very well require a transesophageal echocardiogram.
[2019-07-02 18:30] LABS: HEPATITIS B CORE ANTIBODY IGM NEGATIVE (NEGATIVE); HEPATITIS C VIRUS ABY INDEX < 0.0 INDEX (<0.8)
--- NOTE | 2019-07-02 19:31 | DS.PDOC ---
Discharge Summary General Date of Admission Jun 30, 2019 at 17:51 Date of Discharge 07/02/19 Discharge Summary PROCEDURES PERFORMED DURING STAY: [None]. ADMITTING DIAGNOSES: Sepsis New onset atrial fibrillation Rhabdomyolysis Altered mental status/metabolic encephalopathy Hypertensive emergency Epidural abscess L3-S1 Spinal osteomyelitis DISCHARGE DIAGNOSES: Sepsis New onset atrial fibrillation Rhabdomyolysis Altered mental status/metabolic encephalopathy Hypertensive emergency Epidural abscess L3-S1 Spinal osteomyelitis COMPLICATIONS/CHIEF COMPLAINT: Rhabdomyolysis,Sepsis. HISTORY OF PRESENT ILLNESS: Patient is 63 years old male with past history of splenectomy, BPH, hypertension who did not see PCP for years was brought to the hospital by family with altered mental status. His son stated that he was found his father in his apartment covered by feces on the floor with altered mental status. Presumably patient was on the floor for past 2 days. Patient was confused and couldn't answer the questions. In emergency room patient was found to have right elbow contusion with erythema, x-ray was negative for fracture. His blood pressure was significantly elevated 219/103, he was found to have atrial fibrillation with rapid ventricular rate, elevated white blood count 37.5, sedimentation rate of 44, lactic acid of 2.8, creatinine 1.5 and CPK around 4000. HOSPITAL COURSE: During hospital stay following issue addressed Sepsis On admission patient febrile, has increased leukocytosis, elevated lactic acid, atrial fibrillation with rapid ventricular rate No any other obvious source of infection. CT of abdomen/pelvis and CT chest did not show any acute infectious process, CT of the neck, thoracic and lumbar spine MRI of the lumbar spine showed epidural abscess please (see results below) Repeated blood culture positive for Staphylococcus aureus, urine culture positive for Staphylococcus aureus I talked to ID Dr. Jameson she recommended to restart vancomycin IV Patient continues to have significant leukocytosis. (2) New onset atrial fibrillation New onset of atrial fibrillation associated with rapid ventricular rate. Most likely secondary to sepsis I changed to Lovenox to Xarelto Echo negative for vegetation, patient will need transesophageal echocardiogram due to staph aureus bacteremia Labetalol IV when necessary Continue metoprolol by mouth Thyroid profile within normal limit (3) Rhabdomyolysis Secondary to fall Continue fluid resuscitation. Patient developed anuria on 07/01/19 , resolved today CPK improved (4) Altered mental status/metabolic encephalopathy Patient continues to have fluctuating altered mental status most likely secondary to sepsis (5) Hypertensive emergency Resolved Blood pressures under control Continue metoprolol by mouth Labetalol IV when necessary DISCHARGE MEDICATIONS: Please see below. ALLERGIES: Please see below. PHYSICAL EXAMINATION ON DISCHARGE: VITAL SIGNS: Please see below. GENERAL APPEARANCE: Well-nourished, well-developed, not in apparent distress HEENT: Normocephalic, atraumatic. Mucous members moist and pink CARDIOVASCULAR: Irregularly irregular rhythm. Radial pulses are intact. There is no lower extremity edema LUNGS: Bilateral crackles ABDOMEN: Abdomen is soft and nontender. MUSCULOSKELETAL: Limited range of motion of right upper extremity, erythema with swelling of right elbow NEUROLOGICAL: Cranial nerves II-12 are grossly intact. Speech is not dysarthric Back: Patient denies any tenderness to palpation over the neck, thoracic and lumbar spine. He complains on the pain on the left gluteal area LABORATORY DATA: Please see below. IMAGING: [facility] NAME: STACY SANTANA DATE OF : 1955 BUSINESS NUMBER: [id number] AGE: 63 SEX: M REPORT #: [id number] ROOM: ICU TECHNOLOGIST: [facility] DOCTOR: Matias Jameson MD Ordered for Date&Time: 07/02/191216 cc: [~ rep ct ivnm] Service Date&Time: This report is in Signed status. Interpretation performed by [facility]. Thank you for having your radiology procedures performed at [facility] RADIOLOGY REPORT Date&Time printed: [~ rep prt dt last] [~ rep prt tm last] Page 3 of 3 [place] [id number] RADIOLOGY REPORT This report is in Signed status. Interpretation performed by [facility]. Thank you for having your radiology procedures performed at [facility] RADIOLOGY REPORT Date&Time printed: [~ rep prt dt last] [~ rep prt tm last] Page 1 of 3 Please note that in the body of the report at L3-L4 and L4-L5 it should read that there is a marked central spinal stenosis secondary to the presence of the epidural abscess. This report has been amended as of 07/02/2019 at 4:45 p.m. 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 Please replace the original report with this version. Electronically signed by: Abelino Leary On 07/02/2019 17:45:28 PM DD: ABELINO LEARY MD 07/02/191216 DT: VR 07/02/19 1745 DS: FAB 07/02/19 1745 PROCEDURE INFORMATION: Exam: MR Lumbar Spine Without and With Contrast. Exam date and time: 07/02/2019 12:17 PM Age: 63 years old Clinical indication: Low back pain; Prior surgery; Surgery date: 6+ months; Surgery type: Laminectomy; Patient HX: R/O abcess; Additional info: Staph aureus bacteremia back pain to left groin TECHNIQUE: Imaging protocol: Multiplanar magnetic resonance images of the lumbar spine without and with intravenous contrast. Contrast material: PROHANCE; Contrast volume: 9 ml; Contrast route: IV; COMPARISON: MRI-Spine, L.S. without con 08/13/2012 4:34 PM FINDINGS: Vertebrae: Heterogeneous loss of marrow signal throughout the lumbar and lower thoracic vertebrae consistent with changes related to chronic anemia or other myeloproliferative abnormality. Mottled heterogeneous enhancement of the posterior aspect of L4 and minimally the posterior right paracentral aspect of L3, and most pronounced superiorly at L2 are worrisome for osteomyelitis. Status post bilateral laminectomies at L4 and L5. Spinal cord: Normal signal. No cord compression. L1-L2: There is a moderate central spinal stenosis at L1-L2 secondary to diffuse annular bulging, thickened ligamentum flavum with facet joint arthropathy. L2-L3: There is a severe central spinal stenosis at L2-L3 secondary to diffuse annular bulging, thickened ligamentum flavum with facet joint arthropathy. L3-L4: No significant disc disease. No significant spinal canal or neural foraminal stenosis. L4-L5: No significant disc disease. No significant spinal canal or neural foraminal stenosis. L5-S1: There is bilateral facet joint arthropathy at L5-S1. Soft tissues: There is a irregularly shaped fluid collection in the posterior paraspinal soft tissues measuring 2.5 x 3.7 cm which is T1 intermediate T2 bright and demonstrates peripheral enhancement following intravenous gadolinium administration. The posterior paraspinal fluid collection connects to a elongated fluid collection in the epidural space extending from mid L4 superiorly to the base of L3. The fluid is resulting in compression of the traversing nerve roots with a moderate to severe central spinal stenosis from L3-S1. Findings are compatible with a posterior paraspinal and epidural abscess. Other findings: There is moderate bilateral foraminal stenosis throughout the lumbar spine. IMPRESSION: 1. Heterogeneous loss of marrow signal throughout the lumbar and lower thoracic vertebrae consistent with changes related to chronic anemia or other myeloproliferative abnormality. 2. Mottled heterogeneous enhancement of the posterior aspect of L4 and minimally the posterior right paracentral aspect of L3, and most pronounced superiorly at L2 are worrisome for osteomyelitis. 3. Status post bilateral laminectomies at L4 and L5. 4. Findings compatible with a posterior paraspinal and right epidural abscess extending from L3-S1 with marked compression of the traversing nerve roots. Electronically signed by: Abelino Leary On 07/02/2019 17:43:45 PM DD: ABELINO LEARY MD 07/02/191216 DT: VR 07/02/191742 DS: FAB 07/02/191742 [~ rep ct labl] [facility] NAME: STACY SANTANA : 1955 MEDICAL REC #: [id number] ROOM: ICU ACCOUNT: [id number] ORDERING DOCTOR: ROXY SANDERS DO PATIENT STATUS: ADM IN DICTATING DOCTOR: Cyn Schwartz MD REPORT #: [id number] cc: [~ rep ct ivnm] ECHOCARDIOGRAM-DOPPLER REPORT Printed: [~ rep prt dt last] [~ rep prt tm last] Page 2 of [address] [address] ECHOCARDIOGRAM-DOPPLER REPORT ECHOCARDIOGRAM-DOPPLER REPORT Printed: [~ rep prt dt last] [~ rep prt tm last] Page 1 of 2 DATE OF PROCEDURE: 07/01/2019 REFERRING PHYSICIAN: Dr. Sanders INDICATION: Atrial fibrillation. Sepsis. Height: 173 cm Weight: 93 kg DIMENSIONS: IVS: 1.0 LV: 4.5 LVPW: 1.1 LA: 4.1 Aorta: 3.4 IVC: 1.5 FINDINGS The study is of fair technical quality. The patient is in atrial fibrillation with rapid ventricular response averaging around 120 beats per minute. Left ventricle is normal size and has hyperdynamic contractility, I estimate left ventricular ejection fraction (LVEF) around 65-70%. No segmental wall motion abnormalities are noted based on fair views. Right ventricle also does not appear enlarged. Left atrium is mildly enlarged. Right atrium appears normal. Aortic, mitral and tricuspid valves were reasonably well seen and appear normal. Pulmonic valve was fully seen. No pericardial effusion is noted. Inferior vena cava is relatively small caliber and collapses with respiration indicative of normal or low central venous pressure. Doppler interrogation reveals no aortic stenosis or insufficiency. There is trace mitral insufficiency and no tricuspid insufficiency. Evaluation of diastolic function is inconclusive due to underlying atrial fibrillation. But tissue Doppler velocities of mitral annulus are relatively preserved. CONCLUSIONS 1. Study is of fair technical quality. 2. The patient is in atrial fibrillation with rapid ventricular response averaging approximately 120 bpm. 3. Normal left ventricle (LV) size with hyperdynamic LV systolic function. 4. No significant valvular disease. 5. Likely normal or low central venous pressure. 6. Unable to estimate pulmonary artery pressure but no signs to suggest pulmonary hypertension. COMMENT Subacute bacterial endocarditis (SBE) prophylaxis is not recommended. DD: Cyn Schwartz MD 07/01/191842 DT: GLENNY 07/01/191855 DS: TANISHA2: [~ rep ct labl] PROGNOSIS: Guarded ACTIVITY: [As tolerated]. DIET: Cardiac DISCHARGE PLAN:[facility] for neurosurgical evaluation TIME SPENT ON DISCHARGE: Greater than 20 minutes. Vital Signs/I&Os Vital Signs Date Time Temp Pulse Resp B/P (MAP) Pulse Ox O2 Delivery O2 Flow Rate FiO2 07/02/19 18:00 71 28 112/67 (82) 94 Room Air 07/02/19 16:00 98.1 I&O- Last 24 Hours up to 6 AM 07/02/19 05:59 Intake Total 3855 ml Output Total 945 ml Balance 2910 ml Laboratory Data Labs 24H Laboratory Tests 2 07/01/19 20:03: Anion Gap 10, Glomerular Filtration Rate 33.1L, Calcium Level 9.1, Phosphorus Level 2.9, Magnesium Level 2.8H 07/02/19 04:54: Anion Gap 12, Glomerular Filtration Rate 48.7L, Calcium Level 8.2L, Nucleated Red Blood Cells % (auto) 0.0, Total Bilirubin 1.0, Aspartate Amino Transf (AST/SGOT) 130H, Alanine Aminotransferase (ALT/SGPT) 67, Alkaline Phosphatase 87, Total Creatine Kinase 1138H, BS-Vpl-B-Type Natriuretic Peptide 1394H, Total Protein 5.6L, Albumin 2.1L, Albumin/Globulin Ratio 0.60L 07/02/19 10:15: Anion Gap 11, Glomerular Filtration Rate 43.4L, Calcium Level 8.2L, Total Bilirubin 0.9, Aspartate Amino Transf (AST/SGOT) 110H, Alanine Aminotransferase (ALT/SGPT) 65, Alkaline Phosphatase 89, Total Protein 5.8L, Albumin 2.0L, Albumin/Globulin Ratio 0.53L 07/02/19 10:16: Nucleated Red Blood Cells % (auto) 0.1H, Immature Granulocyte % (Auto) 2.6, Neutrophils (%) (Auto) 91.1H, Lymphocytes (%) (Auto) 1.8L, Monocytes (%) (Auto) 4.3, Eosinophils (%) (Auto) 0.0, Basophils (%) (Auto) 0.2, Neutrophils # (Auto) 30.2H, Lymphocytes # (Auto) 0.6L, Monocytes # (Auto) 1.4H, Eosinophils # (Auto) 0.0, Basophils # (Auto) 0.1, Erythrocyte Sedimentation Rate 61H 07/02/19 10:37: Lactic Acid Level 2.5*H 07/02/19 14:52: Lactic Acid Followup at 4 Hours 1.9 CBC/BMP Laboratory Tests 07/01/19 20:03 07/02/19 04:54 07/02/19 10:15 07/02/19 10:16 Microbiology Microbiology 07/02/19 Blood Culture, Received Pending 07/01/19 Urine Culture - Preliminary, Resulted Staphylococcus Aureus 07/01/19 Blood Culture - Preliminary, Resulted No growth after 24 hours . All specim... 06/30/19 Blood Culture - Preliminary, Resulted Staphylococcus Aureus 06/30/19 Blood Culture - Preliminary, Resulted Staphylococcus Aureus Discharge Medications Scheduled Atorvastatin Calcium (Atorvastatin Calcium) 20 Mg Tab, 20 MG PO DAILY, (Reported) Scheduled PRN Hydrocodone/Acetaminophen (Hydrocodone-Acetamin 5-325 mg) 1 Tab Tab, 1 TAB PO Q8H PRN for PAIN, (Reported) Allergies Coded Allergies: No Known Allergies (Unverified , 02/07/18) ROXY SANEDRS DO Jul 02, 2019 19:31
[2019-07-02] MEDS ORDERED: VANCOMYCIN HCL 1,000 MG, VIAL MATE ADAPTER 1 EACH in D5W 250 ML IV SCH (21:00)
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
[2019-07-06 00:06] LABS: ANA (HEP2) Negative (.); ANTI DS-DNA AB Negative (Negative); ANTI-GLOMERULAR BASEMENT MEMB 3 units (0-20); FREE KAPPA LIGHT CHAINS SERUM 46.8 mg/L (3.3-19.4); FREE LAMBDA LIGHT CHAINS SERUM 29.4 mg/L (5.7-26.3); KAPPA/LAMBDA RATIO SERUM 1.59 (0.26-1.65)
== END 2019-07-02 22:02 | disposition short-term general hospital (02) | DRG 871 ==
LOC: EDBD 15:39 → M ED 15:39 → M ED INP 17:51 → ENRESERVDT 18:18 → ENRESERVTM 18:18 → ENRESERVDT 19:44 → ENRESERVTM 19:44 → M ICU 20:40
PROVIDERS: ADMIT Internal Medicine; ATTEND Internal Medicine
DX: A41.9 Sepsis, unspecified organism (principal); G93.41 Metabolic encephalopathy; G06.2 Extradural and subdural abscess, unspecified; L03.113 Cellulitis of right upper limb; I16.1 Hypertensive emergency; M62.82 Rhabdomyolysis; N17.9 Acute kidney failure, unspecified; E87.2 Acidosis; M46.26 Osteomyelitis of vertebra, lumbar region; R41.82 Altered mental status, unspecified; I48.91 Unspecified atrial fibrillation; N40.0 Benign prostatic hyperplasia without lower urinary tract symptoms; N18.2 Chronic kidney disease, stage 2 (mild); F17.210 Nicotine dependence, cigarettes, uncomplicated; E78.5 Hyperlipidemia, unspecified; M54.5 Low back pain; Z90.81 Acquired absence of spleen; S50.01XA Contusion of right elbow, initial encounter; W19.XXXA Unspecified fall, initial encounter; Y92.039 Unspecified place in apartment as the place of occurrence of the external cause; Z79.891 Long term (current) use of opiate analgesic; Z79.899 Other long term (current) drug therapy

== ENCOUNTER → 2019-07-19 | Outpatient (REF) ==
[2019-07-19 08:16] LABS: BASO # 0.1 10^3/uL (0.0-0.2); EOS # 0.2 10^3/uL (0.0-0.5); EOS % 2.6 % (0.0-3.0); HEMATOCRIT 27.7 % (42.0-52.0); HEMOGLOBIN 8.5 g/dl (13.5-17.5); LYMPH # 2.8 10^3/uL (1.5-5.0); MEAN CORPUSCULAR HEMOGLOBIN 30.5 pg (27.0-33.0); MEAN CORPUSCULAR HGB CONC 30.7 g/dl (32.0-36.5); MEAN CORPUSCULAR VOLUME 99.3 fl (80.0-96.0); MONO % 10.7 % (0.0-5.0); NEUTROPHILS # 5.1 10^3/uL (1.5-8.5); NEUTROPHILS % 55.2 % (36.0-66.0); PLATELET COUNT, AUTOMATED 641 10^3/uL (150-450); RED BLOOD COUNT 2.79 10^6/uL (4.30-6.10); WHITE BLOOD COUNT 9.3 10^3/uL (4.0-10.0)
[2019-07-19 08:52] LABS: ALBUMIN 1.7 GM/DL (3.2-5.2); ALT/SGPT 8 U/L (12-78); BILIRUBIN,TOTAL 0.2 MG/DL (0.2-1.0); BLOOD UREA NITROGEN 11 MG/DL (7-18); CALCIUM LEVEL 8.7 MG/DL (8.8-10.2); CARBON DIOXIDE LEVEL 32 MEQ/L (21-32); CHLORIDE LEVEL 101 MEQ/L (98-107); CREATININE FOR GFR 0.79 MG/DL (0.70-1.30); GLOMERULAR FILTRATION RATE > 60.0 (>49); GLUCOSE, FASTING 86 MG/DL (70-100); POTASSIUM SERUM 4.8 MEQ/L (3.5-5.1); SODIUM LEVEL 137 MEQ/L (136-145)
[2019-07-19 09:11] LABS: ERYTHROCYTE SEDIMENTATION RATE 127 mm/hr (0-20)
== END ==
LOC: SKLAB2 07:00
PROVIDERS: ATTEND Internal Medicine
DX: R68.89 Other general symptoms and signs (principal)

== ENCOUNTER → 2019-07-26 | Outpatient (REF) ==
[2019-07-26 11:37] LABS: BASO # 0.1 10^3/uL (0.0-0.2); BASO % 0.7 % (0.0-1.0); EOS # 0.4 10^3/uL (0.0-0.5); EOS % 2.7 % (0.0-3.0); HEMATOCRIT 33.2 % (42.0-52.0); HEMOGLOBIN 9.7 g/dl (13.5-17.5); LYMPH # 3.4 10^3/uL (1.5-5.0); LYMPH % 23.6 % (24.0-44.0); MEAN CORPUSCULAR HEMOGLOBIN 29.7 pg (27.0-33.0); MEAN CORPUSCULAR HGB CONC 29.2 g/dl (32.0-36.5); MEAN CORPUSCULAR VOLUME 101.5 fl (80.0-96.0); MONO # 1.4 10^3/uL (0.0-0.8); MONO % 9.5 % (0.0-5.0); NEUTROPHILS # 8.9 10^3/uL (1.5-8.5); NEUTROPHILS % 62.9 % (36.0-66.0); PLATELET COUNT, AUTOMATED 814 10^3/uL (150-450); RED BLOOD COUNT 3.27 10^6/uL (4.30-6.10); WHITE BLOOD COUNT 14.2 10^3/uL (4.0-10.0)
[2019-07-26 12:00] LABS: ERYTHROCYTE SEDIMENTATION RATE 129 mm/hr (0-20)
[2019-07-26 12:14] LABS: ALBUMIN 2.2 GM/DL (3.2-5.2); ALT/SGPT 7 U/L (12-78); BILIRUBIN,TOTAL 0.2 MG/DL (0.2-1.0); BLOOD UREA NITROGEN 16 MG/DL (7-18); C REACTIVE PROTEIN QUANTITATIV 3.98 MG/DL (0.00-0.30); CALCIUM LEVEL 9.2 MG/DL (8.8-10.2); CARBON DIOXIDE LEVEL 33 MEQ/L (21-32); CHLORIDE LEVEL 99 MEQ/L (98-107); CREATININE FOR GFR 0.99 MG/DL (0.70-1.30); GLOMERULAR FILTRATION RATE > 60.0 (>49); GLUCOSE, FASTING 138 MG/DL (70-100); POTASSIUM SERUM 5.2 MEQ/L (3.5-5.1); SODIUM LEVEL 137 MEQ/L (136-145); TOTAL PROTEIN 9.3 GM/DL (6.4-8.2)
== END ==
LOC: SKLAB2 07:00
PROVIDERS: ATTEND Internal Medicine
DX: L08.9 Local infection of the skin and subcutaneous tissue, unspecified (principal)

== ENCOUNTER → 2019-08-02 | Outpatient (REF) ==
[2019-08-02 13:26] LABS: BASO # 0.1 10^3/uL (0.0-0.2); BASO % 1.1 % (0.0-1.0); EOS # 0.4 10^3/uL (0.0-0.5); EOS % 3.4 % (0.0-3.0); HEMATOCRIT 32.9 % (42.0-52.0); HEMOGLOBIN 10.2 g/dl (13.5-17.5); LYMPH % 31.1 % (24.0-44.0); MEAN CORPUSCULAR HEMOGLOBIN 30.7 pg (27.0-33.0); MEAN CORPUSCULAR VOLUME 99.1 fl (80.0-96.0); MONO # 1.3 10^3/uL (0.0-0.8); MONO % 10.5 % (0.0-5.0); NEUTROPHILS # 6.8 10^3/uL (1.5-8.5); NEUTROPHILS % 53.4 % (36.0-66.0); PLATELET COUNT, AUTOMATED 595 10^3/uL (150-450); RED BLOOD COUNT 3.32 10^6/uL (4.30-6.10); WHITE BLOOD COUNT 12.7 10^3/uL (4.0-10.0)
[2019-08-02 13:58] LABS: ALBUMIN 2.5 GM/DL (3.2-5.2); ALT/SGPT < 6 U/L (12-78); BILIRUBIN,TOTAL 0.2 MG/DL (0.2-1.0); BLOOD UREA NITROGEN 17 MG/DL (7-18); C REACTIVE PROTEIN QUANTITATIV 2.43 MG/DL (0.00-0.30); CALCIUM LEVEL 9.4 MG/DL (8.8-10.2); CARBON DIOXIDE LEVEL 29 MEQ/L (21-32); CHLORIDE LEVEL 100 MEQ/L (98-107); CREATININE FOR GFR 0.86 MG/DL (0.70-1.30); GLOMERULAR FILTRATION RATE > 60.0 (>49); GLUCOSE, FASTING 83 MG/DL (70-100); POTASSIUM SERUM 5.2 MEQ/L (3.5-5.1); SODIUM LEVEL 136 MEQ/L (136-145); TOTAL PROTEIN 9.2 GM/DL (6.4-8.2)
[2019-08-02 14:00] LABS: ERYTHROCYTE SEDIMENTATION RATE > 140 mm/hr (0-20)
== END ==
LOC: SKLAB2 12:26
PROVIDERS: ATTEND Internal Medicine
DX: B99.9 Unspecified infectious disease (principal)

== ENCOUNTER → 2019-08-09 | Outpatient (REF) ==
[2019-08-09 08:42] LABS: BASO # 0.1 10^3/uL (0.0-0.2); BASO % 1.1 % (0.0-1.0); EOS # 0.5 10^3/uL (0.0-0.5); EOS % 4.1 % (0.0-3.0); HEMATOCRIT 31.2 % (42.0-52.0); HEMOGLOBIN 9.7 g/dl (13.5-17.5); LYMPH # 3.4 10^3/uL (1.5-5.0); LYMPH % 31.3 % (24.0-44.0); MEAN CORPUSCULAR HEMOGLOBIN 30.5 pg (27.0-33.0); MEAN CORPUSCULAR HGB CONC 31.1 g/dl (32.0-36.5); MEAN CORPUSCULAR VOLUME 98.1 fl (80.0-96.0); MONO % 9.4 % (0.0-5.0); NEUTROPHILS # 5.8 10^3/uL (1.5-8.5); NEUTROPHILS % 53.8 % (36.0-66.0); PLATELET COUNT, AUTOMATED 491 10^3/uL (150-450); RED BLOOD COUNT 3.18 10^6/uL (4.30-6.10); WHITE BLOOD COUNT 10.9 10^3/uL (4.0-10.0)
[2019-08-09 09:07] LABS: ALBUMIN 2.2 GM/DL (3.2-5.2); ALT/SGPT 7 U/L (12-78); BILIRUBIN,TOTAL 0.2 MG/DL (0.2-1.0); BLOOD UREA NITROGEN 17 MG/DL (7-18); C REACTIVE PROTEIN QUANTITATIV 2.26 MG/DL (0.00-0.30); CARBON DIOXIDE LEVEL 29 MEQ/L (21-32); CHLORIDE LEVEL 106 MEQ/L (98-107); CREATININE FOR GFR 0.77 MG/DL (0.70-1.30); GLOMERULAR FILTRATION RATE > 60.0 (>49); GLUCOSE, FASTING 98 MG/DL (70-100); POTASSIUM SERUM 4.4 MEQ/L (3.5-5.1); SODIUM LEVEL 139 MEQ/L (136-145); TOTAL PROTEIN 8.4 GM/DL (6.4-8.2)
[2019-08-09 09:12] LABS: ERYTHROCYTE SEDIMENTATION RATE > 140 mm/hr (0-20)
== END ==
LOC: SKLAB2 07:00
PROVIDERS: ATTEND Internal Medicine
DX: G06.1 Intraspinal abscess and granuloma (principal)

== ENCOUNTER → 2019-08-13 | Outpatient (CLI) | payer MEDICARE, OTHER ==
[~2019-08-13] MED LIST changes: +ISOVUE-370 76% 100ML VIAL (Q9967) As Ordered ONE
--- NOTE | 2019-08-13 11:08 | REPVR ---
PROCEDURE INFORMATION: Exam: CT Lumbar Spine With Contrast Exam date and time: 08/13/2019 9:33 AM Age: 63 years old Clinical indication: Other: Abscess; Additional info: Epidural abscess TECHNIQUE: Imaging protocol: Computed tomography images of the lumbar spine with intravenous contrast. Radiation optimization: All CT scans at this facility use at least one of these dose optimization techniques: automated exposure control; mA and/or kV adjustment per patient size (includes targeted exams where dose is matched to clinical indication); or iterative reconstruction. Contrast material: ISOVUE 370; Contrast volume: 100 ml; Contrast route: IV; COMPARISON: CT Spine, lumbar w/o contrast 07/02/2019 8:13 AM FINDINGS: Vertebrae: There is no acute fracture or listhesis. There is progressive irregularity and depression involving the superior endplate at L2, potentially affects of osteomyelitis. Normal vertebral body heights are otherwise preserved. Discs/Spinal canal/Neural foramina: There are laminectomy changes at L3/4 and L4/5. At L2/3, disc osteophyte complex and mild facet hypertrophy contribute to [id number] bilateral neural foraminal narrowing. At L3/4, diffuse disc osteophyte complex and moderate facet hypertrophy contribute to moderate bilateral neural foraminal narrowing. At L4/5, disc osteophyte complex and moderate facet hypertrophy contribute to moderate right neural foraminal narrowing. At L5/S1, disc osteophyte complex and moderate facet hypertrophy contribute to [id number] bilateral neural foraminal narrowing. Soft tissues: Unremarkable. IMPRESSION: 1. Progressive irregularity and depression involving the L2 superior endplate, potentially sequelae of discitis/osteomyelitis. 2. Degenerative disc disease and spondylosis. 3. Laminectomy changes. 4. If there is concern for epidural abscess, contrast-enhanced MRI is the modality of choice. This could not be adequately assessed with CT. Electronically signed by: Nery Hernandez On 08/13/2019 11:08:14 AM
--- NOTE | 2019-08-13 15:12 | REPVR ---
PROCEDURE INFORMATION: Exam: CT Thoracic Spine With Contrast Exam date and time: 08/13/2019 9:33 AM Age: 63 years old Clinical indication: Other: Abscess; Additional info: Epidural abscess TECHNIQUE: Imaging protocol: Computed tomography images of the thoracic spine with intravenous contrast. Radiation optimization: All CT scans at this facility use at least one of these dose optimization techniques: automated exposure control; mA and/or kV adjustment per patient size (includes targeted exams where dose is matched to clinical indication); or iterative reconstruction. Contrast material: ISOVUE 370; Contrast volume: 100 ml; Contrast route: IV; COMPARISON: CT Spine,thoracic w/o contrast 07/02/2019 8:13 AM FINDINGS: Vertebrae: No acute fracture. Normal alignment. Discs/Spinal canal/Neural foramina: There is severe intervertebral disc space loss at C6/C7 and C7/T1. At T1/2, disc osteophyte complex and facet hypertrophy contribute to severe bilateral neural foraminal narrowing. At T11/12, disc osteophyte complex asymmetric to the left and mild to moderate facet hypertrophy asymmetric to the left contribute to severe left neural foraminal narrowing. Soft tissues: Unremarkable. IMPRESSION: 1. No acute fracture or listhesis. 2. Chronic changes. 3. If there is concern for epidural abscess, contrast-enhanced MRI is recommended. Electronically signed by: Nery Hernandez On 08/13/2019 15:12:05 PM
== END ==
LOC: M RAD 08:59
PROVIDERS: ATTEND Nurse Practitioner Family
DX: M47.816 Spondylosis without myelopathy or radiculopathy, lumbar region (principal); G06.1 Intraspinal abscess and granuloma; B95.61 Methicillin susceptible Staphylococcus aureus infection as the cause of diseases classified elsewhere
CPT/HCPCS: 72129; 72132; Q9967

== ENCOUNTER → 2019-08-16 | Outpatient (REF) ==
[~2019-08-16] MED LIST changes: -ISOVUE-370 76% 100ML VIAL (Q9967) As Ordered ONE
[2019-08-16 08:46] LABS: BASO # 0.1 10^3/uL (0.0-0.2); EOS # 0.7 10^3/uL (0.0-0.5); EOS % 6.2 % (0.0-3.0); LYMPH # 3.5 10^3/uL (1.5-5.0); LYMPH % 32.7 % (24.0-44.0); MEAN CORPUSCULAR HEMOGLOBIN 30.4 pg (27.0-33.0); MEAN CORPUSCULAR HGB CONC 31.3 g/dl (32.0-36.5); MEAN CORPUSCULAR VOLUME 97.3 fl (80.0-96.0); MONO % 9.2 % (0.0-5.0); NEUTROPHILS # 5.5 10^3/uL (1.5-8.5); NEUTROPHILS % 50.6 % (36.0-66.0); PLATELET COUNT, AUTOMATED 450 10^3/uL (150-450); RED BLOOD COUNT 3.29 10^6/uL (4.30-6.10); WHITE BLOOD COUNT 10.8 10^3/uL (4.0-10.0)
[2019-08-16 09:17] LABS: ALBUMIN 2.5 GM/DL (3.2-5.2); ALT/SGPT 8 U/L (12-78); BILIRUBIN,TOTAL 0.2 MG/DL (0.2-1.0); BLOOD UREA NITROGEN 15 MG/DL (7-18); C REACTIVE PROTEIN QUANTITATIV 1.61 MG/DL (0.00-0.30); CALCIUM LEVEL 8.9 MG/DL (8.8-10.2); CARBON DIOXIDE LEVEL 27 MEQ/L (21-32); CHLORIDE LEVEL 107 MEQ/L (98-107); CREATININE FOR GFR 0.82 MG/DL (0.70-1.30); GLOMERULAR FILTRATION RATE > 60.0 (>49); GLUCOSE, FASTING 108 MG/DL (70-100); POTASSIUM SERUM 4.5 MEQ/L (3.5-5.1); SODIUM LEVEL 139 MEQ/L (136-145); TOTAL PROTEIN 7.8 GM/DL (6.4-8.2)
[2019-08-16 09:42] LABS: ERYTHROCYTE SEDIMENTATION RATE 106 mm/hr (0-20)
== END ==
LOC: SKLAB2 07:00
PROVIDERS: ATTEND Internal Medicine
DX: L08.9 Local infection of the skin and subcutaneous tissue, unspecified (principal)

== ENCOUNTER → 2019-08-25 | Outpatient (CLI) | payer MEDICARE, OTHER ==
[2019-08-25 11:05] LABS: BASO # 0.1 10^3/uL (0.0-0.2); BASO % 0.9 % (0.0-1.0); EOS # 0.6 10^3/uL (0.0-0.5); EOS % 4.6 % (0.0-3.0); HEMATOCRIT 34.8 % (42.0-52.0); HEMOGLOBIN 10.7 g/dl (13.5-17.5); LYMPH # 4.3 10^3/uL (1.5-5.0); LYMPH % 31.9 % (24.0-44.0); MEAN CORPUSCULAR HEMOGLOBIN 30.7 pg (27.0-33.0); MEAN CORPUSCULAR HGB CONC 30.7 g/dl (32.0-36.5); MEAN CORPUSCULAR VOLUME 99.7 fl (80.0-96.0); MONO # 1.1 10^3/uL (0.0-0.8); MONO % 8.1 % (0.0-5.0); NEUTROPHILS # 7.2 10^3/uL (1.5-8.5); NEUTROPHILS % 54.1 % (36.0-66.0); PLATELET COUNT, AUTOMATED 462 10^3/uL (150-450); RED BLOOD COUNT 3.49 10^6/uL (4.30-6.10); WHITE BLOOD COUNT 13.4 10^3/uL (4.0-10.0)
[2019-08-25 11:32] LABS: ERYTHROCYTE SEDIMENTATION RATE 83 mm/hr (0-20)
[2019-08-25 11:35] LABS: ALBUMIN 2.9 GM/DL (3.2-5.2); ALT/SGPT 15 U/L (12-78); BILIRUBIN,TOTAL 0.1 MG/DL (0.2-1.0); BLOOD UREA NITROGEN 21 MG/DL (7-18); C REACTIVE PROTEIN QUANTITATIV 1.35 MG/DL (0.00-0.30); CALCIUM LEVEL 9.2 MG/DL (8.8-10.2); CARBON DIOXIDE LEVEL 29 MEQ/L (21-32); CHLORIDE LEVEL 106 MEQ/L (98-107); CREATININE FOR GFR 0.83 MG/DL (0.70-1.30); GLOMERULAR FILTRATION RATE > 60.0 (>49); GLUCOSE, FASTING 100 MG/DL (70-100); POTASSIUM SERUM 5.2 MEQ/L (3.5-5.1); SODIUM LEVEL 140 MEQ/L (136-145); TOTAL PROTEIN 7.8 GM/DL (6.4-8.2)
== END ==
LOC: M PLALAB 08:06
PROVIDERS: ATTEND Nurse Practitioner Family
DX: G06.2 Extradural and subdural abscess, unspecified (principal)

== ENCOUNTER → 2019-09-07 | Outpatient (CLI) | payer MEDICARE, OTHER ==
[2019-09-07 10:20] LABS: BASO # 0.1 10^3/uL (0.0-0.2); BASO % 0.8 % (0.0-1.0); EOS # 0.7 10^3/uL (0.0-0.5); EOS % 5.3 % (0.0-3.0); HEMATOCRIT 34.2 % (42.0-52.0); HEMOGLOBIN 10.6 g/dl (13.5-17.5); LYMPH # 3.5 10^3/uL (1.5-5.0); LYMPH % 25.4 % (24.0-44.0); MEAN CORPUSCULAR HEMOGLOBIN 30.4 pg (27.0-33.0); MONO # 1.6 10^3/uL (0.0-0.8); MONO % 11.4 % (0.0-5.0); NEUTROPHILS # 7.7 10^3/uL (1.5-8.5); NEUTROPHILS % 56.7 % (36.0-66.0); PLATELET COUNT, AUTOMATED 371 10^3/uL (150-450); RED BLOOD COUNT 3.49 10^6/uL (4.30-6.10); WHITE BLOOD COUNT 13.6 10^3/uL (4.0-10.0)
[2019-09-07 10:53] LABS: ALBUMIN 2.6 GM/DL (3.2-5.2); ALT/SGPT 15 U/L (12-78); BILIRUBIN,TOTAL 0.3 MG/DL (0.2-1.0); BLOOD UREA NITROGEN 15 MG/DL (7-18); C REACTIVE PROTEIN QUANTITATIV 2.68 MG/DL (0.00-0.30); CALCIUM LEVEL 8.4 MG/DL (8.8-10.2); CARBON DIOXIDE LEVEL 25 MEQ/L (21-32); CHLORIDE LEVEL 110 MEQ/L (98-107); GLOMERULAR FILTRATION RATE > 60.0 (>49); GLUCOSE, FASTING 83 MG/DL (70-100); POTASSIUM SERUM 5.7 MEQ/L (3.5-5.1); SODIUM LEVEL 139 MEQ/L (136-145); TOTAL PROTEIN 7.3 GM/DL (6.4-8.2)
[2019-09-07 10:55] LABS: ERYTHROCYTE SEDIMENTATION RATE 72 mm/hr (0-20)
== END ==
LOC: M PLALAB 08:00
PROVIDERS: ATTEND Nurse Practitioner Family
DX: G06.2 Extradural and subdural abscess, unspecified (principal); R78.81 Bacteremia; Z79.2 Long term (current) use of antibiotics

== ENCOUNTER → 2019-11-18 | Outpatient (CLI) | payer MEDICARE, OTHER ==
[2019-11-18 10:56] LABS: BASO # 0.1 10^3/uL (0.0-0.2); BASO % 0.7 % (0.0-1.0); EOS # 0.7 10^3/uL (0.0-0.5); EOS % 4.3 % (0.0-3.0); HEMATOCRIT 41.7 % (42.0-52.0); HEMOGLOBIN 12.9 g/dl (13.5-17.5); LYMPH # 3.4 10^3/uL (1.5-5.0); MEAN CORPUSCULAR HEMOGLOBIN 29.7 pg (27.0-33.0); MEAN CORPUSCULAR HGB CONC 30.9 g/dl (32.0-36.5); MEAN CORPUSCULAR VOLUME 95.9 fl (80.0-96.0); MONO # 1.1 10^3/uL (0.0-0.8); MONO % 7.6 % (0.0-5.0); NEUTROPHILS # 9.6 10^3/uL (1.5-8.5); PLATELET COUNT, AUTOMATED 349 10^3/uL (150-450); RED BLOOD COUNT 4.35 10^6/uL (4.30-6.10)
[2019-11-18 11:19] LABS: ALBUMIN 3.3 GM/DL (3.2-5.2); ALT/SGPT 18 U/L (12-78); BILIRUBIN,TOTAL 0.1 MG/DL (0.2-1.0); BLOOD UREA NITROGEN 16 MG/DL (7-18); C REACTIVE PROTEIN QUANTITATIV 0.74 MG/DL (0.00-0.30); CALCIUM LEVEL 8.4 MG/DL (8.8-10.2); CARBON DIOXIDE LEVEL 24 MEQ/L (21-32); CHLORIDE LEVEL 109 MEQ/L (98-107); CREATININE FOR GFR 0.88 MG/DL (0.70-1.30); GLOMERULAR FILTRATION RATE > 60.0 (>49); GLUCOSE, FASTING 110 MG/DL (70-100); POTASSIUM SERUM 4.8 MEQ/L (3.5-5.1); SODIUM LEVEL 140 MEQ/L (136-145); TOTAL PROTEIN 7.1 GM/DL (6.4-8.2)
[2019-11-18 12:15] LABS: ERYTHROCYTE SEDIMENTATION RATE 25 mm/hr (0-20)
== END ==
LOC: M PLALAB 08:28
PROVIDERS: ATTEND Nurse Practitioner Family
DX: G06.2 Extradural and subdural abscess, unspecified (principal); R78.81 Bacteremia; Z79.2 Long term (current) use of antibiotics

== ENCOUNTER → 2019-12-13 | Outpatient (CLI) | payer MEDICARE, OTHER ==
[2019-12-13 12:14] LABS: BASO # 0.1 10^3/uL (0.0-0.2); BASO % 0.9 % (0.0-1.0); EOS # 0.7 10^3/uL (0.0-0.5); EOS % 5.4 % (0.0-3.0); HEMATOCRIT 42.5 % (42.0-52.0); HEMOGLOBIN 13.3 g/dl (13.5-17.5); LYMPH # 3.6 10^3/uL (1.5-5.0); MEAN CORPUSCULAR HGB CONC 31.3 g/dl (32.0-36.5); MEAN CORPUSCULAR VOLUME 95.7 fl (80.0-96.0); MONO # 1.2 10^3/uL (0.0-0.8); MONO % 8.9 % (0.0-5.0); NEUTROPHILS # 7.3 10^3/uL (1.5-8.5); NEUTROPHILS % 56.5 % (36.0-66.0); PLATELET COUNT, AUTOMATED 318 10^3/uL (150-450); RED BLOOD COUNT 4.44 10^6/uL (4.30-6.10); WHITE BLOOD COUNT 12.9 10^3/uL (4.0-10.0)
[2019-12-13 12:41] LABS: ERYTHROCYTE SEDIMENTATION RATE 14 mm/hr (0-20)
[2019-12-13 12:56] LABS: ALBUMIN 3.2 GM/DL (3.2-5.2); ALT/SGPT 21 U/L (12-78); BILIRUBIN,TOTAL < 0.1 MG/DL (0.2-1.0); BLOOD UREA NITROGEN 23 MG/DL (7-18); C REACTIVE PROTEIN QUANTITATIV < 0.30 MG/DL (0.00-0.30); CALCIUM LEVEL 8.9 MG/DL (8.8-10.2); CARBON DIOXIDE LEVEL 24 MEQ/L (21-32); CHLORIDE LEVEL 112 MEQ/L (98-107); CREATININE FOR GFR 1.04 MG/DL (0.70-1.30); GLOMERULAR FILTRATION RATE > 60.0 (>49); GLUCOSE, FASTING 97 MG/DL (70-100); POTASSIUM SERUM 4.8 MEQ/L (3.5-5.1); SODIUM LEVEL 140 MEQ/L (136-145); TOTAL PROTEIN 6.8 GM/DL (6.4-8.2)
== END ==
LOC: M PLALAB 08:29
PROVIDERS: ATTEND Nurse Practitioner Family
DX: Z51.81 Encounter for therapeutic drug level monitoring (principal); Z79.2 Long term (current) use of antibiotics; G06.2 Extradural and subdural abscess, unspecified; R78.81 Bacteremia

== ENCOUNTER → 2020-01-13 | Outpatient (CLI) | payer MEDICARE, OTHER ==
[2020-01-13 12:00] LABS: BASO # 0.1 10^3/uL (0.0-0.2); BASO % 1.1 % (0.0-1.0); EOS # 0.6 10^3/uL (0.0-0.5); EOS % 4.6 % (0.0-3.0); HEMATOCRIT 42.6 % (42.0-52.0); HEMOGLOBIN 13.6 g/dl (13.5-17.5); LYMPH # 3.3 10^3/uL (1.5-5.0); LYMPH % 24.9 % (24.0-44.0); MEAN CORPUSCULAR HEMOGLOBIN 30.9 pg (27.0-33.0); MEAN CORPUSCULAR HGB CONC 31.9 g/dl (32.0-36.5); MEAN CORPUSCULAR VOLUME 96.8 fl (80.0-96.0); MONO # 1.3 10^3/uL (0.0-0.8); MONO % 9.5 % (0.0-5.0); NEUTROPHILS % 59.6 % (36.0-66.0); PLATELET COUNT, AUTOMATED 345 10^3/uL (150-450); WHITE BLOOD COUNT 13.3 10^3/uL (4.0-10.0)
== END ==
LOC: M PLALAB 08:11
PROVIDERS: ATTEND Nurse Practitioner Family
DX: G06.2 Extradural and subdural abscess, unspecified (principal); R78.81 Bacteremia; Z79.2 Long term (current) use of antibiotics

== ENCOUNTER → 2020-02-15 | Outpatient (CLI) | payer MEDICARE, OTHER ==
[2020-02-15 12:57] LABS: BASO # 0.1 10^3/uL (0.0-0.2); EOS # 0.8 10^3/uL (0.0-0.5); EOS % 6.5 % (0.0-3.0); LYMPH # 3.7 10^3/uL (1.5-5.0); MEAN CORPUSCULAR HEMOGLOBIN 31.7 pg (27.0-33.0); MEAN CORPUSCULAR HGB CONC 32.6 g/dl (32.0-36.5); MEAN CORPUSCULAR VOLUME 97.3 fl (80.0-96.0); MONO % 8.8 % (0.0-5.0); NEUTROPHILS # 5.9 10^3/uL (1.5-8.5); NEUTROPHILS % 51.4 % (36.0-66.0); PLATELET COUNT, AUTOMATED 325 10^3/uL (150-450); RED BLOOD COUNT 4.42 10^6/uL (4.30-6.10); WHITE BLOOD COUNT 11.6 10^3/uL (4.0-10.0)
[2020-02-15 13:26] LABS: ALBUMIN 3.7 GM/DL (3.2-5.2); ALT/SGPT 23 U/L (12-78); BILIRUBIN,TOTAL 0.3 MG/DL (0.2-1.0); BLOOD UREA NITROGEN 17 MG/DL (7-18); C REACTIVE PROTEIN QUANTITATIV < 0.30 MG/DL (0.00-0.30); CALCIUM LEVEL 9.3 MG/DL (8.8-10.2); CARBON DIOXIDE LEVEL 28 MEQ/L (21-32); CHLORIDE LEVEL 109 MEQ/L (98-107); CREATININE FOR GFR 1.04 MG/DL (0.70-1.30); GLOMERULAR FILTRATION RATE > 60.0 (>49); GLUCOSE, FASTING 107 MG/DL (70-100); SODIUM LEVEL 141 MEQ/L (136-145); TOTAL PROTEIN 7.2 GM/DL (6.4-8.2)
[2020-02-15 13:35] LABS: ERYTHROCYTE SEDIMENTATION RATE 10 mm/hr (0-20)
== END ==
LOC: M PLALAB 08:38
PROVIDERS: ATTEND Nurse Practitioner Family
DX: Z51.81 Encounter for therapeutic drug level monitoring (principal); Z79.2 Long term (current) use of antibiotics; G06.2 Extradural and subdural abscess, unspecified; R78.81 Bacteremia

== ENCOUNTER → 2020-03-15 | Outpatient (CLI) | payer MEDICARE, OTHER ==
[2020-03-15 13:41] LABS: BASO # 0.1 10^3/uL (0.0-0.2); EOS # 0.6 10^3/uL (0.0-0.5); HEMATOCRIT 43.4 % (42.0-52.0); HEMOGLOBIN 13.9 g/dl (13.5-17.5); LYMPH # 4.5 10^3/uL (1.5-5.0); LYMPH % 32.3 % (24.0-44.0); MEAN CORPUSCULAR VOLUME 96.7 fl (80.0-96.0); MONO % 7.3 % (0.0-5.0); NEUTROPHILS # 7.7 10^3/uL (1.5-8.5); NEUTROPHILS % 55.1 % (36.0-66.0); PLATELET COUNT, AUTOMATED 344 10^3/uL (150-450); RED BLOOD COUNT 4.49 10^6/uL (4.30-6.10)
[2020-03-15 14:01] LABS: ALBUMIN 3.6 GM/DL (3.2-5.2); ALT/SGPT 26 U/L (12-78); BILIRUBIN,TOTAL 0.4 MG/DL (0.2-1.0); BLOOD UREA NITROGEN 19 MG/DL (7-18); CALCIUM LEVEL 9.1 MG/DL (8.8-10.2); CARBON DIOXIDE LEVEL 27 MEQ/L (21-32); CHLORIDE LEVEL 108 MEQ/L (98-107); CREATININE FOR GFR 1.01 MG/DL (0.70-1.30); GLOMERULAR FILTRATION RATE > 60.0 (>49); GLUCOSE, FASTING 77 MG/DL (70-100); POTASSIUM SERUM 5.4 MEQ/L (3.5-5.1); SODIUM LEVEL 140 MEQ/L (136-145); TOTAL PROTEIN 7.3 GM/DL (6.4-8.2)
[2020-03-15 14:18] LABS: ERYTHROCYTE SEDIMENTATION RATE 14 mm/hr (0-20)
== END ==
LOC: M PLALAB 11:21
PROVIDERS: ATTEND Nurse Practitioner Family
DX: G06.2 Extradural and subdural abscess, unspecified (principal); R78.81 Bacteremia; Z79.2 Long term (current) use of antibiotics

== ENCOUNTER → 2020-04-13 | Outpatient (CLI) | payer MEDICARE, OTHER ==
[2020-04-13 11:24] LABS: BASO # 0.1 10^3/uL (0.0-0.2); EOS # 0.7 10^3/uL (0.0-0.5); EOS % 5.8 % (0.0-3.0); HEMOGLOBIN 14.1 g/dl (13.5-17.5); LYMPH # 3.7 10^3/uL (1.5-5.0); LYMPH % 32.7 % (24.0-44.0); MEAN CORPUSCULAR HEMOGLOBIN 30.2 pg (27.0-33.0); MEAN CORPUSCULAR HGB CONC 31.3 g/dl (32.0-36.5); MEAN CORPUSCULAR VOLUME 96.4 fl (80.0-96.0); MONO # 1.1 10^3/uL (0.0-0.8); NEUTROPHILS # 5.7 10^3/uL (1.5-8.5); NEUTROPHILS % 50.3 % (36.0-66.0); PLATELET COUNT, AUTOMATED 324 10^3/uL (150-450); RED BLOOD COUNT 4.67 10^6/uL (4.30-6.10); WHITE BLOOD COUNT 11.2 10^3/uL (4.0-10.0)
[2020-04-13 11:31] LABS: ALBUMIN 3.6 GM/DL (3.2-5.2); ALT/SGPT 28 U/L (12-78); BILIRUBIN,TOTAL 0.5 MG/DL (0.2-1.0); BLOOD UREA NITROGEN 10 MG/DL (7-18); CALCIUM LEVEL 9.2 MG/DL (8.8-10.2); CARBON DIOXIDE LEVEL 30 MEQ/L (21-32); CHLORIDE LEVEL 107 MEQ/L (98-107); CREATININE FOR GFR 1.02 MG/DL (0.70-1.30); GLOMERULAR FILTRATION RATE > 60.0 (>49); GLUCOSE, FASTING 104 MG/DL (70-100); POTASSIUM SERUM 4.8 MEQ/L (3.5-5.1); SODIUM LEVEL 139 MEQ/L (136-145); TOTAL PROTEIN 7.2 GM/DL (6.4-8.2)
[2020-04-13 12:04] LABS: ERYTHROCYTE SEDIMENTATION RATE 11 mm/hr (0-20)
== END ==
LOC: M PLALAB 08:18
PROVIDERS: ATTEND Nurse Practitioner Family
DX: G06.2 Extradural and subdural abscess, unspecified (principal); R78.81 Bacteremia; Z79.2 Long term (current) use of antibiotics

== ENCOUNTER → 2020-04-18 | Outpatient (REF) | payer MEDICARE, OTHER | LOC: M PLALAB 08:27 | PROVIDERS: ATTEND Nurse Practitioner Women's Health | DX: R97.20 Elevated prostate specific antigen [PSA] (principal) ==

== ENCOUNTER → 2020-05-08 | Outpatient (REF) | payer MEDICARE, OTHER ==
[2020-05-08 11:02] LABS: HEMATOCRIT 47.5 % (42.0-52.0); HEMOGLOBIN 14.4 g/dl (13.5-17.5); MEAN CORPUSCULAR HEMOGLOBIN 29.5 pg (27.0-33.0); MEAN CORPUSCULAR HGB CONC 30.3 g/dl (32.0-36.5); MEAN CORPUSCULAR VOLUME 97.3 fl (80.0-96.0); PLATELET COUNT, AUTOMATED 364 10^3/uL (150-450); RED BLOOD COUNT 4.88 10^6/uL (4.30-6.10); WHITE BLOOD COUNT 12.3 10^3/uL (4.0-10.0)
[2020-05-08 11:27] LABS: BLOOD UREA NITROGEN 13 MG/DL (7-18); CALCIUM LEVEL 9.1 MG/DL (8.8-10.2); CARBON DIOXIDE LEVEL 27 MEQ/L (21-32); CHLORIDE LEVEL 107 MEQ/L (98-107); CREATININE FOR GFR 1.06 MG/DL (0.70-1.30); GLOMERULAR FILTRATION RATE > 60.0 (>49); GLUCOSE, FASTING 99 MG/DL (70-100); MAGNESIUM LEVEL 2.2 MG/DL (1.8-2.4); POTASSIUM SERUM 5.2 MEQ/L (3.5-5.1); SODIUM LEVEL 139 MEQ/L (136-145)
[2020-05-08 11:35] LABS: HEMOGLOBIN A1c 5.9 %
== END ==
LOC: M SFHCPLAZ 08:32
DX: G47.62 Sleep related leg cramps (principal); F17.200 Nicotine dependence, unspecified, uncomplicated; Z00.00 Encounter for general adult medical examination without abnormal findings

== ENCOUNTER → 2020-05-29 | Outpatient (CLI) | payer MEDICARE, OTHER ==
--- NOTE | 2020-05-29 11:17 | REP ---
INDICATION: CURRENT,SMOKER. COMPARISON: Abdomen and pelvis CT without contrast dated 08/2008. The aorta was unremarkable on the comparison CT. TECHNIQUE: Multiple real-time ultrasonographic images. FINDINGS: Proximal aorta at the diaphragm: 2.3 x 2.8 cm. Renal artery level: 1.9 x 2.8 cm. Mid aorta: 1.9 x 2.2 cm. Distal aorta above bifurcation 2.1 x 2.2 cm. Right common iliac artery 1.5 x 1.2 cm. Left common iliac artery 1.7 x 1.2 cm. IMPRESSION: The abdominal aortic measurements are normal. There is no abdominal aortic aneurysm <Electronically signed by Cortez Camacho > 05/29/20 1113
== END ==
LOC: M RAD 08:19
PROVIDERS: ATTEND Student in an Organized Health Care Education/Training Program
DX: F17.210 Nicotine dependence, cigarettes, uncomplicated (principal)

== ENCOUNTER → 2020-11-19 | Outpatient (CLI) | payer MEDICARE, OTHER ==
[~2020-11-19] MED LIST changes: +CEPH500C PO
== END ==
LOC: M LABSMTC 08:45
PROVIDERS: ATTEND Anesthesiology
DX: Z01.812 Encounter for preprocedural laboratory examination (principal); Z11.52 Encounter for screening for COVID-19

== ENCOUNTER 2020-11-24 06:49 | Day surgery (SDC) | payer MEDICARE, OTHER ==
[~2020-11-24] VITALS: Ht 175.3 cm; Wt 102.1 kg
[~2020-11-24 06:49] MED LIST changes: +NS 1,000 ML IV ONE
[2020-11-24] MEDS ORDERED: LIDOCAINE 2% 100MG/5ML SDV (FOR ANES.) As Ordered ONE (08:51)
[2020-11-24] MEDS ORDERED: propofoL 200 MG/20 ML VIAL As Ordered ONE ×2 (08:51→08:53)
[2020-11-24] MEDS ORDERED: ePHEDrine SULFATE 25 MG/5 ML(5MG/ML) SYRINGE As Ordered ONE (09:08)
--- NOTE | 2020-11-24 09:25 | ROOR ---
Patient Name: Luis F Waite Procedure Date: 11/24/2020 8:34 AM Date of : 1955 Age: 65 Room: [facility] Gender: Male Note Status: Finalized Procedure: Colonoscopy Indications: High risk colon cancer surveillance: Personal history of colonic polyps Providers: Juliocesar Saldaña MD Referring MD: Roxy Pgy-1 Paty [facility], Admin. Requesting Provider: Medicines: Monitored Anesthesia Care Complications: No immediate complications. Procedure: Pre-Anesthesia Assessment: - Prior to the procedure, a History and Physical was performed, and patient medications and allergies were reviewed. The patient is competent. The risks and benefits of the procedure and the sedation options and risks were discussed with the patient. All questions were answered and informed consent was obtained. Patient identification and proposed procedure were verified by the physician, the nurse and the anesthesiologist in the procedure room. Mental Status Examination: alert and oriented. Airway Examination: normal oropharyngeal airway and neck mobility. Respiratory Examination: clear to auscultation. CV Examination: normal. Prophylactic Antibiotics: The patient does not require prophylactic antibiotics. Prior Anticoagulants: The patient has taken no previous anticoagulant or antiplatelet agents. ASA Grade Assessment: II - A patient with mild systemic disease. After reviewing the risks and benefits, the patient was deemed in satisfactory condition to undergo the procedure. The anesthesia plan was to use monitored anesthesia care (MAC). Immediately prior to administration of medications, the patient was re-assessed for adequacy to receive sedatives. The heart rate, respiratory rate, oxygen saturations, blood pressure, adequacy of pulmonary ventilation, and response to care were monitored throughout the procedure. The physical status of the patient was re-assessed after the procedure. The Colonoscope was introduced through the anus and advanced to the terminal ileum, with identification of the appendiceal orifice and IC valve. The colonoscopy was performed without difficulty. The patient tolerated the procedure well. The quality of the bowel preparation was good. The terminal ileum, ileocecal valve, appendiceal orifice, and rectum were photographed. Scope insertion time was 2 minutes. Scope withdrawal time was 10 minutes. The total duration of the procedure was 12 minutes. Findings: The perianal and digital rectal examinations were normal. The terminal ileum appeared normal. Four sessile polyps were found in the recto-sigmoid colon. The polyps were 4 to 8 mm in size. These polyps were removed with a cold snare. Resection and retrieval were complete. Verification of patient identification for the specimen was done by the physician and nurse using the patient's name, date and medical record number. Estimated blood loss was minimal. A few small-mouthed diverticula were found in the ascending colon. There was no evidence of diverticular bleeding. Non-bleeding external and internal hemorrhoids were found during retroflexion. The hemorrhoids were medium-sized. Impression: - The examined portion of the ileum was normal. - Four 4 to 8 mm polyps at the recto-sigmoid colon, removed with a cold snare. Resected and retrieved. - Moderate diverticulosis in the ascending colon. There was no evidence of diverticular bleeding. - Non-bleeding external and internal hemorrhoids. Recommendation: - Patient has a contact number available for emergencies. The signs and symptoms of potential delayed complications were discussed with the patient. Return to normal activities tomorrow. Written discharge instructions were provided to the patient. - High fiber diet. - Continue present medications. - Await pathology results. - Repeat colonoscopy in 3 - 5 years for surveillance based on pathology results. - Telephone GI clinic for pathology results in 2 weeks. - Return to primary care physician. Procedure Code(s): --- Professional --- 76381, Colonoscopy, flexible; with removal of tumor(s), polyp(s), or other lesion(s) by snare technique Diagnosis Code(s): --- Professional --- Z86.010, Personal history of colonic polyps K64.8, Other hemorrhoids K63.5, Polyp of colon K57.30, Diverticulosis of large intestine without perforation or abscess without bleeding CPT copyright 2019 [employer]. All rights reserved. The codes documented in this report are preliminary and upon weight reducing technician review may be revised to meet current compliance requirements. Juliocesar Saldaña MD Juliocesar Saldaña MD 11/24/2020 9:24:44 AM Electronically signed by Juliocesar Saldaña MD Number of Addenda: 0 Note Initiated On: 11/24/2020 8:34 AM Estimated Blood Loss: Estimated blood loss was minimal.
[2020-11-24 09:40] VITALS: BP 143/90
== END 2020-11-24 09:45 | disposition home or self-care (01) ==
LOC: M OPP 06:49
PROVIDERS: ATTEND Internal Medicine Gastroenterology
DX: Z12.11 Encounter for screening for malignant neoplasm of colon (principal); Z86.010 Personal history of colon polyps; D12.7 Benign neoplasm of rectosigmoid junction; K57.30 Diverticulosis of large intestine without perforation or abscess without bleeding; K64.8 Other hemorrhoids; G06.1 Intraspinal abscess and granuloma; F17.210 Nicotine dependence, cigarettes, uncomplicated; Z79.2 Long term (current) use of antibiotics; Z79.899 Other long term (current) drug therapy

== ENCOUNTER → 2020-11-24 | Outpatient (REF) | payer MEDICARE, OTHER ==
[2020-11-24 17:14] LABS: BASO # 0.1 10^3/uL (0.0-0.2); BASO % 0.8 % (0.0-1.0); EOS # 0.5 10^3/uL (0.0-0.5); EOS % 3.8 % (0.0-3.0); HEMATOCRIT 43.7 % (42.0-52.0); HEMOGLOBIN 13.7 g/dl (13.5-17.5); LYMPH # 3.6 10^3/uL (1.5-5.0); LYMPH % 29.2 % (24.0-44.0); MEAN CORPUSCULAR HEMOGLOBIN 29.8 pg (27.0-33.0); MEAN CORPUSCULAR HGB CONC 31.4 g/dl (32.0-36.5); MEAN CORPUSCULAR VOLUME 95.2 fl (80.0-96.0); MONO % 8.4 % (2.0-8.0); NEUTROPHILS % 57.4 % (36.0-66.0); PLATELET COUNT, AUTOMATED 329 10^3/uL (150-450); RED BLOOD COUNT 4.59 10^6/uL (4.30-6.10); WHITE BLOOD COUNT 12.2 10^3/uL (4.0-10.0)
[2020-11-24 17:28] LABS: BLOOD UREA NITROGEN 13 MG/DL (7-18); CALCIUM LEVEL 8.7 MG/DL (8.8-10.2); CARBON DIOXIDE LEVEL 26 MEQ/L (21-32); CHLORIDE LEVEL 107 MEQ/L (98-107); GLOMERULAR FILTRATION RATE > 60.0 (>49); GLUCOSE, FASTING 107 MG/DL (70-100); POTASSIUM SERUM 4.2 MEQ/L (3.5-5.1); SODIUM LEVEL 139 MEQ/L (136-145)
== END ==
LOC: M SFHCPLAZ 11:57
PROVIDERS: ATTEND Family Medicine
DX: G06.1 Intraspinal abscess and granuloma (principal); F17.200 Nicotine dependence, unspecified, uncomplicated

== ENCOUNTER → 2021-02-07 | Outpatient (REF) | payer MEDICARE, OTHER ==
[~2021-02-07] MED LIST changes: -NS 1,000 ML IV ONE
== END ==
LOC: M LAB REF 19:23
PROVIDERS: ATTEND Physician Assistant
DX: D22.4 Melanocytic nevi of scalp and neck (principal)

== ENCOUNTER → 2021-03-26 | Outpatient (CLI) | payer MEDICARE, OTHER ==
[2021-03-26 10:33] LABS: BASO # 0.2 10^3/uL (0.0-0.2); BASO % 1.2 % (0.0-1.0); EOS # 0.6 10^3/uL (0.0-0.5); EOS % 4.8 % (0.0-3.0); LYMPH # 3.8 10^3/uL (1.5-5.0); LYMPH % 29.9 % (24.0-44.0); MEAN CORPUSCULAR HEMOGLOBIN 30.4 pg (27.0-33.0); MEAN CORPUSCULAR HGB CONC 31.8 g/dl (32.0-36.5); MEAN CORPUSCULAR VOLUME 95.4 fl (80.0-96.0); MONO # 1.1 10^3/uL (0.0-0.8); MONO % 8.4 % (2.0-8.0); NEUTROPHILS % 55.4 % (36.0-66.0); PLATELET COUNT, AUTOMATED 340 10^3/uL (150-450); RED BLOOD COUNT 4.61 10^6/uL (4.30-6.10); WHITE BLOOD COUNT 12.6 10^3/uL (4.0-10.0)
[2021-03-26 10:58] LABS: ALBUMIN 3.6 GM/DL (3.2-5.2); ALT/SGPT 25 U/L (12-78); BILIRUBIN,TOTAL 0.3 MG/DL (0.2-1.0); BLOOD UREA NITROGEN 18 MG/DL (7-18); C REACTIVE PROTEIN QUANTITATIV 0.37 MG/DL (0.00-0.30); CALCIUM LEVEL 9.6 MG/DL (8.8-10.2); CARBON DIOXIDE LEVEL 29 MEQ/L (21-32); CHLORIDE LEVEL 107 MEQ/L (98-107); CREATININE FOR GFR 1.03 MG/DL (0.70-1.30); GLOMERULAR FILTRATION RATE > 60.0 (>49); GLUCOSE, FASTING 111 MG/DL (70-100); SODIUM LEVEL 140 MEQ/L (136-145); TOTAL PROTEIN 7.1 GM/DL (6.4-8.2)
[2021-03-26 11:12] LABS: ERYTHROCYTE SEDIMENTATION RATE 8 mm/hr (0-20)
== END ==
LOC: M PLALAB 08:07
PROVIDERS: ATTEND Physician Assistant
DX: A49.01 Methicillin susceptible Staphylococcus aureus infection, unspecified site (principal); T81.49XA Infection following a procedure, other surgical site, initial encounter; Z96.9 Presence of functional implant, unspecified; F06.2 Psychotic disorder with delusions due to known physiological condition; R78.81 Bacteremia; B95.61 Methicillin susceptible Staphylococcus aureus infection as the cause of diseases classified elsewhere; Z79.2 Long term (current) use of antibiotics

== ENCOUNTER → 2021-04-20 | Outpatient (CLI) | payer MEDICARE, OTHER | LOC: M PLALAB 09:36 | PROVIDERS: ATTEND Nurse Practitioner Women's Health | DX: R97.20 Elevated prostate specific antigen [PSA] (principal) | CPT/HCPCS: 36415; 84153; G0463 ==

== ENCOUNTER → 2021-07-09 | Outpatient (CLI) | payer MEDICARE, OTHER | LOC: M PLALAB 08:24 | PROVIDERS: ATTEND Nurse Practitioner Women's Health | DX: R97.20 Elevated prostate specific antigen [PSA] (principal) ==

== ENCOUNTER → 2021-08-01 | Outpatient (REF) | payer MEDICARE, OTHER | LOC: M SMT PRO 09:08 | PROVIDERS: ATTEND Urology | DX: R97.20 Elevated prostate specific antigen [PSA] (principal) ==

== ENCOUNTER → 2021-11-09 | Outpatient (REF) | payer MEDICARE, OTHER | LOC: M SFHCPLAZ 14:28 | PROVIDERS: ATTEND Family Medicine | DX: E78.5 Hyperlipidemia, unspecified (principal); G06.2 Extradural and subdural abscess, unspecified; Z13.1 Encounter for screening for diabetes mellitus ==

== ENCOUNTER → 2021-11-20 | Outpatient (CLI) | payer MEDICARE, OTHER | LOC: M RAD 08:33 | PROVIDERS: ATTEND Student in an Organized Health Care Education/Training Program | DX: Z12.2 Encounter for screening for malignant neoplasm of respiratory organs (principal); F17.210 Nicotine dependence, cigarettes, uncomplicated; E78.5 Hyperlipidemia, unspecified; G06.2 Extradural and subdural abscess, unspecified; Z13.1 Encounter for screening for diabetes mellitus; Z79.899 Other long term (current) drug therapy ==

== ENCOUNTER → 2021-11-20 | Outpatient (CLI) | payer MEDICARE, OTHER ==
[2021-11-20 10:08] LABS: BASO # 0.1 10^3/uL (0.0-0.2); BASO % 0.8 % (0.0-1.0); EOS # 1.1 10^3/uL (0.0-0.5); EOS % 7.4 % (0.0-3.0); HEMATOCRIT 42.5 % (42.0-52.0); HEMOGLOBIN 13.5 g/dl (13.5-17.5); LYMPH # 3.1 10^3/uL (1.5-5.0); LYMPH % 20.8 % (24.0-44.0); MEAN CORPUSCULAR HGB CONC 31.8 g/dl (32.0-36.5); MEAN CORPUSCULAR VOLUME 97.7 fl (80.0-96.0); MONO # 1.2 10^3/uL (0.0-0.8); MONO % 8.3 % (2.0-8.0); NEUTROPHILS # 9.4 10^3/uL (1.5-8.5); NEUTROPHILS % 62.2 % (36.0-66.0); PLATELET COUNT, AUTOMATED 304 10^3/uL (150-450); RED BLOOD COUNT 4.35 10^6/uL (4.30-6.10)
[2021-11-20 10:38] LABS: ALBUMIN 3.5 GM/DL (3.2-5.2); ALT/SGPT 39 U/L (12-78); BILIRUBIN,DIRECT < 0.1 MG/DL (0.0-0.2); BILIRUBIN,TOTAL 0.2 MG/DL (0.2-1.0); BLOOD UREA NITROGEN 25 MG/DL (7-18); CALCIUM LEVEL 9.5 MG/DL (8.8-10.2); CARBON DIOXIDE LEVEL 25 MEQ/L (21-32); CHLORIDE LEVEL 114 MEQ/L (98-107); CHOLESTEROL LEVEL 181 MG/DL (<200); CHOLESTEROL RISK RATIO 2.967 (<5); CREATININE FOR GFR 1.04 MG/DL (0.70-1.30); GLOMERULAR FILTRATION RATE > 60.0 (>49); GLUCOSE, FASTING 108 MG/DL (70-100); HDL CHOLESTEROL 61 MG/DL (>40); LDL CHOLESTEROL 105 MG/DL (<100); NON-HDL-C 120 MG/DL; SODIUM LEVEL 144 MEQ/L (136-145); TOTAL PROTEIN 7.1 GM/DL (6.4-8.2); TRIGLYCERIDES LEVEL 76 MG/DL (<150)
[2021-11-20 11:37] LABS: HEMOGLOBIN A1c 6.1 %
== END ==
LOC: M LAB 09:30
PROVIDERS: ATTEND Student in an Organized Health Care Education/Training Program
DX: E78.5 Hyperlipidemia, unspecified (principal); G06.2 Extradural and subdural abscess, unspecified; Z13.1 Encounter for screening for diabetes mellitus

== ENCOUNTER → 2022-02-06 | Outpatient (CLI) | payer MEDICARE, OTHER ==
[2022-02-07 23:07] LABS: PSA % FREE 21.7 % (.); PSA FREE 1.02 ng/mL; PSA TOTAL 4.7 ng/mL (0.0-4.0)
== END ==
LOC: M LAB 08:27
PROVIDERS: ATTEND Urology
DX: R97.20 Elevated prostate specific antigen [PSA] (principal)

== ENCOUNTER → 2022-02-22 | Outpatient (CLI) | payer MEDICARE, OTHER ==
[2022-02-22 09:49] LABS: HEMOGLOBIN 13.9 g/dl (13.5-17.5); MEAN CORPUSCULAR HEMOGLOBIN 31.2 pg (27.0-33.0); MEAN CORPUSCULAR HGB CONC 32.3 g/dl (32.0-36.5); MEAN CORPUSCULAR VOLUME 96.4 fl (80.0-96.0); PLATELET COUNT, AUTOMATED 326 10^3/uL (150-450); RED BLOOD COUNT 4.46 10^6/uL (4.30-6.10); WHITE BLOOD COUNT 14.6 10^3/uL (4.0-10.0)
[2022-02-22 10:28] LABS: BLOOD UREA NITROGEN 18 MG/DL (7-18); CALCIUM LEVEL 9.5 MG/DL (8.8-10.2); CARBON DIOXIDE LEVEL 26 MEQ/L (21-32); CHLORIDE LEVEL 109 MEQ/L (98-107); CREATININE FOR GFR 0.92 MG/DL (0.70-1.30); GLOMERULAR FILTRATION RATE > 60.0 (>49); GLUCOSE, FASTING 108 MG/DL (70-100); POTASSIUM SERUM 5.4 MEQ/L (3.5-5.1); SODIUM LEVEL 140 MEQ/L (136-145)
[2022-02-22 10:31] LABS: ERYTHROCYTE SEDIMENTATION RATE 7 mm/hr (0-20)
[2022-02-22 11:13] LABS: ATYPICAL LYMPH 1 % (0-5); BASOPHILS 1 % (0-1); EOSINOPHILS 8 % (0-3); LYMPHOCYTES 20 % (16-44); METAMYELOCYTES 1 % (0-0); MONOCYTES 7 % (0-5); NEUTROPHILS 62 % (28-66); PLATELET ESTIMATE NORMAL (NORMAL)
[2022-02-22 11:14] LABS: ANISOCYTOSIS 1+
== END ==
LOC: M LAB 09:12
PROVIDERS: ATTEND Internal Medicine Infectious Disease
DX: A49.01 Methicillin susceptible Staphylococcus aureus infection, unspecified site (principal)

== ENCOUNTER → 2022-02-28 | Outpatient (CLI) | payer MEDICARE, OTHER ==
[2022-02-28 08:59] LABS: BASO # 0.1 10^3/uL (0.0-0.2); EOS % 7.1 % (0.0-3.0); HEMATOCRIT 42.7 % (42.0-52.0); HEMOGLOBIN 13.8 g/dl (13.5-17.5); LYMPH # 3.4 10^3/uL (1.5-5.0); MEAN CORPUSCULAR HEMOGLOBIN 31.3 pg (27.0-33.0); MEAN CORPUSCULAR HGB CONC 32.3 g/dl (32.0-36.5); MEAN CORPUSCULAR VOLUME 96.8 fl (80.0-96.0); MONO # 1.2 10^3/uL (0.0-0.8); MONO % 8.4 % (2.0-8.0); NEUTROPHILS # 8.3 10^3/uL (1.5-8.5); NEUTROPHILS % 59.1 % (36.0-66.0); PLATELET COUNT, AUTOMATED 324 10^3/uL (150-450); RED BLOOD COUNT 4.41 10^6/uL (4.30-6.10)
[2022-02-28 09:35] LABS: BLOOD UREA NITROGEN 15 MG/DL (7-18); CALCIUM LEVEL 9.5 MG/DL (8.8-10.2); CARBON DIOXIDE LEVEL 28 MEQ/L (21-32); CHLORIDE LEVEL 106 MEQ/L (98-107); GLOMERULAR FILTRATION RATE > 60.0 (>49); GLUCOSE, FASTING 99 MG/DL (70-100); POTASSIUM SERUM 4.6 MEQ/L (3.5-5.1); SODIUM LEVEL 136 MEQ/L (136-145)
== END ==
LOC: M LAB 08:32
PROVIDERS: ATTEND Internal Medicine Infectious Disease
DX: A49.01 Methicillin susceptible Staphylococcus aureus infection, unspecified site (principal)

== ENCOUNTER → 2022-08-04 | Outpatient (CLI) | payer MEDICARE, OTHER ==
[2022-08-06 20:11] LABS: PSA % FREE 26.6 % (.); PSA FREE 1.78 ng/mL; PSA TOTAL 6.7 ng/mL (0.0-4.0)
== END ==
LOC: M LAB 08:20
PROVIDERS: ATTEND Urology
DX: R97.20 Elevated prostate specific antigen [PSA] (principal)

== ENCOUNTER → 2022-08-25 | Outpatient (CLI) | payer MEDICARE, OTHER ==
[2022-08-25 09:14] LABS: BASO # 0.1 10^3/uL (0.0-0.2); EOS # 1.7 10^3/uL (0.0-0.5); HEMATOCRIT 45.8 % (42.0-52.0); HEMOGLOBIN 14.4 g/dl (13.5-17.5); LYMPH # 3.9 10^3/uL (1.5-5.0); LYMPH % 28.4 % (24.0-44.0); MEAN CORPUSCULAR HEMOGLOBIN 30.5 pg (27.0-33.0); MEAN CORPUSCULAR HGB CONC 31.4 g/dl (32.0-36.5); MONO # 1.2 10^3/uL (0.0-0.8); MONO % 8.7 % (2.0-8.0); NEUTROPHILS # 6.9 10^3/uL (1.5-8.5); NEUTROPHILS % 49.7 % (36.0-66.0); PLATELET COUNT, AUTOMATED 325 10^3/uL (150-450); RED BLOOD COUNT 4.72 10^6/uL (4.30-6.10); WHITE BLOOD COUNT 13.9 10^3/uL (4.0-10.0)
[2022-08-25 09:36] LABS: ALBUMIN 3.6 G/DL (3.2-5.2); ALKALINE PHOSPHATASE 94 U/L (46-116); ALT/SGPT 33 U/L (7.0-40); AST/SGOT 26 U/L (<34); BILIRUBIN,TOTAL 0.3 MG/DL (0.3-1.2); BLOOD UREA NITROGEN 20 MG/DL (9-23); CALCIUM LEVEL 9.3 MG/DL (8.3-10.6); CARBON DIOXIDE LEVEL 28 MMOL/L (20-31); CHLORIDE LEVEL 106 MMOL/L (98-107); CREATININE FOR GFR 0.94 MG/DL (0.70-1.30); GLOMERULAR FILTRATION RATE > 60.0 (>49); GLUCOSE, FASTING 102 MG/DL (74-106); POTASSIUM SERUM 5.2 MMOL/L (3.5-5.1); SODIUM LEVEL 140 MMOL/L (136-145); TOTAL PROTEIN 6.7 G/DL (5.7-8.2)
[2022-08-25 09:39] LABS: ERYTHROCYTE SEDIMENTATION RATE 24 mm/hr (0-20)
[2022-08-25 09:44] LABS: C REACTIVE PROTEIN QUANTITATIV < 0.40 MG/DL (<1.0)
== END ==
LOC: M LAB 08:12
PROVIDERS: ATTEND Internal Medicine Infectious Disease
DX: A49.01 Methicillin susceptible Staphylococcus aureus infection, unspecified site (principal)

== ENCOUNTER → 2022-11-15 | Outpatient (REF) | payer MEDICARE, OTHER | LOC: M SFHCPLAZ 09:17 | PROVIDERS: ATTEND Family Medicine | DX: E78.5 Hyperlipidemia, unspecified (principal) ==

== ENCOUNTER → 2023-02-03 | Outpatient (CLI) | payer MEDICARE, OTHER ==
[2023-02-04 16:10] LABS: PSA % FREE 26.3 % (.); PSA FREE 1.05 ng/mL
== END ==
LOC: M LAB 07:56
PROVIDERS: ATTEND Urology
DX: R97.20 Elevated prostate specific antigen [PSA] (principal)

== ENCOUNTER → 2023-02-19 | Outpatient (CLI) | payer MEDICARE, OTHER ==
[2023-02-19 08:56] LABS: BASO # 0.1 10^3/uL (0.0-0.2); EOS # 1.5 10^3/uL (0.0-0.5); EOS % 11.1 % (0.0-3.0); HEMATOCRIT 42.8 % (42.0-52.0); HEMOGLOBIN 13.6 g/dl (13.5-17.5); LYMPH # 3.7 10^3/uL (1.5-5.0); LYMPH % 27.8 % (24.0-44.0); MEAN CORPUSCULAR HEMOGLOBIN 31.1 pg (27.0-33.0); MEAN CORPUSCULAR HGB CONC 31.8 g/dl (32.0-36.5); MEAN CORPUSCULAR VOLUME 97.7 fl (80.0-96.0); MONO # 1.2 10^3/uL (0.0-0.8); MONO % 9.2 % (2.0-8.0); NEUTROPHILS # 6.8 10^3/uL (1.5-8.5); NEUTROPHILS % 50.7 % (36.0-66.0); PLATELET COUNT, AUTOMATED 301 10^3/uL (150-450); RED BLOOD COUNT 4.38 10^6/uL (4.30-6.10); WHITE BLOOD COUNT 13.4 10^3/uL (4.0-10.0)
[2023-02-19 09:29] LABS: ALBUMIN 3.6 G/DL (3.2-5.2); ALKALINE PHOSPHATASE 99 U/L (46-116); ALT/SGPT 19 U/L (7.0-40); AST/SGOT 15 U/L (<34); BILIRUBIN,TOTAL 0.2 MG/DL (0.3-1.2); BLOOD UREA NITROGEN 18 MG/DL (9-23); CALCIUM LEVEL 9.3 MG/DL (8.3-10.6); CARBON DIOXIDE LEVEL 29 MMOL/L (20-31); CHLORIDE LEVEL 105 MMOL/L (98-107); CHOLESTEROL LEVEL 166 MG/DL (<200); GLOMERULAR FILTRATION RATE > 60.0 (>49); GLUCOSE, FASTING 104 MG/DL (74-106); HDL CHOLESTEROL 55.3 MG/DL (>40); LDL CHOLESTEROL 91.7 MG/DL (<100); NON-HDL-C 110.7 MG/DL; POTASSIUM SERUM 5.2 MMOL/L (3.5-5.1); SODIUM LEVEL 140 MMOL/L (136-145); TOTAL PROTEIN 6.8 G/DL (5.7-8.2); TRIGLYCERIDES LEVEL 95 MG/DL (<150)
[2023-02-19 09:33] LABS: ERYTHROCYTE SEDIMENTATION RATE 27 mm/hr (0-20)
[2023-02-19 09:40] LABS: C REACTIVE PROTEIN QUANTITATIV < 0.40 MG/DL (<1.0)
== END ==
LOC: M LAB 08:08
PROVIDERS: ATTEND Internal Medicine Infectious Disease
DX: E78.5 Hyperlipidemia, unspecified (principal); A49.01 Methicillin susceptible Staphylococcus aureus infection, unspecified site

== ENCOUNTER → 2023-02-20 | Outpatient (CLI) | payer MEDICARE, OTHER | LOC: M RAD 09:42 | PROVIDERS: ATTEND Student in an Organized Health Care Education/Training Program | DX: Z12.2 Encounter for screening for malignant neoplasm of respiratory organs (principal); F17.210 Nicotine dependence, cigarettes, uncomplicated ==

== ENCOUNTER → 2023-04-01 | Outpatient (CLI) | payer MEDICARE, OTHER | LOC: M PLAIMG 10:25 | PROVIDERS: ATTEND Student in an Organized Health Care Education/Training Program | DX: R09.89 Other specified symptoms and signs involving the circulatory and respiratory systems (principal) ==

== ENCOUNTER → 2023-08-13 | Outpatient (CLI) | payer MEDICARE, OTHER ==
[2023-08-13 08:35] LABS: BASO # 0.1 10^3/uL (0.0-0.2); BASO % 0.9 % (0.0-1.0); EOS # 1.2 10^3/uL (0.0-0.5); EOS % 10.8 % (0.0-3.0); HEMATOCRIT 43.6 % (42.0-52.0); HEMOGLOBIN 13.7 g/dl (13.5-17.5); LYMPH # 3.5 10^3/uL (1.5-5.0); LYMPH % 32.6 % (24.0-44.0); MEAN CORPUSCULAR HEMOGLOBIN 30.2 pg (27.0-33.0); MEAN CORPUSCULAR HGB CONC 31.4 g/dl (32.0-36.5); MONO % 9.6 % (2.0-8.0); NEUTROPHILS # 4.9 10^3/uL (1.5-8.5); NEUTROPHILS % 45.9 % (36.0-66.0); PLATELET COUNT, AUTOMATED 333 10^3/uL (150-450); RED BLOOD COUNT 4.54 10^6/uL (4.30-6.10); WHITE BLOOD COUNT 10.7 10^3/uL (4.0-10.0)
[2023-08-13 08:50] LABS: ERYTHROCYTE SEDIMENTATION RATE 29 mm/hr (0-20)
== END ==
LOC: M LAB 07:55
PROVIDERS: ATTEND Internal Medicine Infectious Disease
DX: A49.01 Methicillin susceptible Staphylococcus aureus infection, unspecified site (principal)

== ENCOUNTER → 2023-11-16 | Outpatient (CLI) | payer MEDICARE, OTHER ==
[2023-11-16 08:37] LABS: HEMATOCRIT 44.8 % (42.0-52.0); HEMOGLOBIN 14.6 g/dl (13.5-17.5); MEAN CORPUSCULAR HEMOGLOBIN 30.7 pg (27.0-33.0); MEAN CORPUSCULAR HGB CONC 32.6 g/dl (32.0-36.5); MEAN CORPUSCULAR VOLUME 94.3 fl (80.0-96.0); PLATELET COUNT, AUTOMATED 327 10^3/uL (150-450); RED BLOOD COUNT 4.75 10^6/uL (4.30-6.10)
[2023-11-16 08:38] LABS: WHITE BLOOD COUNT 14.5 10^3/uL (4.0-10.0)
[2023-11-16 08:46] LABS: HEMOGLOBIN A1c 5.9 % (4.0-6.0)
[2023-11-16 09:03] LABS: BLOOD UREA NITROGEN 15 MG/DL (9-23); CALCIUM LEVEL 9.1 MG/DL (8.3-10.6); CARBON DIOXIDE LEVEL 26 MMOL/L (20-31); CHLORIDE LEVEL 105 MMOL/L (98-107); CHOLESTEROL LEVEL 159 MG/DL (<200); CHOLESTEROL RISK RATIO 3.27 (<5); CREATININE FOR GFR 0.94 MG/DL (0.70-1.30); GLOMERULAR FILTRATION RATE > 60.0 (>49); GLUCOSE, FASTING 112 MG/DL (74-106); HDL CHOLESTEROL 48.5 MG/DL (>40); LDL CHOLESTEROL 87.9 MG/DL (<100); NON-HDL-C 110.5 MG/DL; POTASSIUM SERUM 4.7 MMOL/L (3.5-5.1); SODIUM LEVEL 137 MMOL/L (136-145); TRIGLYCERIDES LEVEL 113 MG/DL (<150)
[2023-11-16 09:43] LABS: HEPATITIS C VIRUS ABY INDEX < 0.02 INDEX (<0.8)
== END ==
LOC: M LAB 08:06
PROVIDERS: ATTEND Student in an Organized Health Care Education/Training Program
DX: I10 Essential (primary) hypertension (principal); Z11.59 Encounter for screening for other viral diseases; E78.5 Hyperlipidemia, unspecified; Z13.1 Encounter for screening for diabetes mellitus

== ENCOUNTER → 2023-11-21 | Outpatient (CLI) | payer MEDICARE, OTHER ==
[2023-11-21 09:26] LABS: BASO # 0.1 10^3/uL (0.0-0.2); BASO % 0.9 % (0.0-1.0); EOS % 7.2 % (0.0-3.0); HEMATOCRIT 45.7 % (42.0-52.0); HEMOGLOBIN 14.5 g/dl (13.5-17.5); LYMPH # 3.3 10^3/uL (1.5-5.0); MEAN CORPUSCULAR HEMOGLOBIN 30.8 pg (27.0-33.0); MEAN CORPUSCULAR HGB CONC 31.7 g/dl (32.0-36.5); MONO # 1.2 10^3/uL (0.0-0.8); MONO % 8.6 % (2.0-8.0); NEUTROPHILS # 8.5 10^3/uL (1.5-8.5); PLATELET COUNT, AUTOMATED 328 10^3/uL (150-450); RED BLOOD COUNT 4.71 10^6/uL (4.30-6.10); WHITE BLOOD COUNT 14.2 10^3/uL (4.0-10.0)
== END ==
LOC: M LAB 08:43
PROVIDERS: ATTEND Student in an Organized Health Care Education/Training Program
DX: A49.01 Methicillin susceptible Staphylococcus aureus infection, unspecified site (principal)

== ENCOUNTER → 2023-11-26 | Outpatient (CLI) | payer MEDICARE, OTHER ==
[2023-11-26 10:36] LABS: HEMATOCRIT 45.3 % (42.0-52.0); HEMOGLOBIN 14.5 g/dl (13.5-17.5); MEAN CORPUSCULAR HEMOGLOBIN 31.2 pg (27.0-33.0); MEAN CORPUSCULAR VOLUME 97.4 fl (80.0-96.0); MONO % 7.6 % (2.0-8.0); NEUTROPHILS % 57.8 % (36.0-66.0); PLATELET COUNT, AUTOMATED 329 10^3/uL (150-450); RED BLOOD COUNT 4.65 10^6/uL (4.30-6.10); WHITE BLOOD COUNT 13.8 10^3/uL (4.0-10.0)
[2023-11-26 10:37] LABS: BASO # 0.1 10^3/uL (0.0-0.2); BASO % 0.9 % (0.0-1.0); EOS # 0.9 10^3/uL (0.0-0.5); EOS % 6.4 % (0.0-3.0); LYMPH # 3.7 10^3/uL (1.5-5.0); MONO # 1.1 10^3/uL (0.0-0.8)
[2023-11-26 10:42] LABS: ERYTHROCYTE SEDIMENTATION RATE 43 mm/hr (0-20)
[2023-11-26 11:01] LABS: C REACTIVE PROTEIN QUANTITATIV < 0.40 MG/DL (<1.0)
[2023-11-26 11:38] LABS: HEPATITIS C VIRUS ABY INDEX 0.02 INDEX (<0.8)
== END ==
LOC: M LAB 09:14
PROVIDERS: ATTEND Student in an Organized Health Care Education/Training Program
DX: A49.01 Methicillin susceptible Staphylococcus aureus infection, unspecified site (principal); Z11.59 Encounter for screening for other viral diseases

== ENCOUNTER → 2023-12-12 | Outpatient (CLI) | payer MEDICARE, OTHER | LOC: M SLEEP HO 11:54 | PROVIDERS: ATTEND Student in an Organized Health Care Education/Training Program | DX: G47.33 Obstructive sleep apnea (adult) (pediatric) (principal) ==

== ENCOUNTER → 2024-02-09 | Outpatient (CLI) | payer MEDICARE, OTHER ==
[2024-02-10 12:23] LABS: PSA FREE 1.7 ng/mL; PSA TOTAL 3.5 ng/mL (< OR = 4.0)
== END ==
LOC: M LAB 08:06
PROVIDERS: ATTEND Urology
DX: R97.20 Elevated prostate specific antigen [PSA] (principal)

== ENCOUNTER → 2024-03-01 | Outpatient (CLI) | payer MEDICARE, OTHER ==
[2024-03-01 09:50] LABS: CHOLESTEROL RISK RATIO 2.82 (<5); HDL CHOLESTEROL 56.6 MG/DL (>40); LDL CHOLESTEROL 85.6 MG/DL (<100); NON-HDL-C 103.4 MG/DL
[2024-03-02 10:27] LABS: Estimated Ave Glu(eAG) 7.4 mmol/L; Hemoglobin A1c 6.3 (<5.7)
== END ==
LOC: M LAB 08:41
PROVIDERS: ATTEND Student in an Organized Health Care Education/Training Program
DX: E78.5 Hyperlipidemia, unspecified (principal); R73.03 Prediabetes

== ENCOUNTER → 2024-05-08 | Outpatient (CLI) | payer MEDICARE, OTHER | LOC: M SLEEP 20:00 | PROVIDERS: ATTEND Physician Assistant | DX: G47.33 Obstructive sleep apnea (adult) (pediatric) (principal) ==

== ENCOUNTER → 2024-07-23 | Outpatient (CLI) | payer MEDICARE, OTHER ==
[2024-07-23 10:23] LABS: HEMOGLOBIN A1c 5.8 % (4.0-6.0)
== END ==
LOC: M LAB 08:59
PROVIDERS: ATTEND Student in an Organized Health Care Education/Training Program
DX: R73.03 Prediabetes (principal)

== ENCOUNTER → 2024-08-04 | Outpatient (CLI) | payer MEDICARE, OTHER | LOC: M RAD 16:49 | DX: Z87.891 Personal history of nicotine dependence (principal); J84.10 Pulmonary fibrosis, unspecified ==

== ENCOUNTER → 2024-08-07 | Outpatient (CLI) | payer MEDICARE, OTHER | LOC: M SLEEP 20:00 | PROVIDERS: ATTEND Physician Assistant | DX: G47.33 Obstructive sleep apnea (adult) (pediatric) (principal) ==

== ENCOUNTER 2024-09-30 08:05 | Day surgery (SDC) | payer MEDICARE, OTHER ==
[~2024-09-30] VITALS: Ht 175.3 cm; Wt 111.6 kg
[~2024-09-30 08:05] MED LIST changes: +CEFA500C2 PO; +FLUTISP; +JARD1TAB PO; +LISI10TA22 PO; +METF-838 PO; +ROSU20TA86 PO
[2024-09-30] MEDS ORDERED: propofoL 200 MG/20 ML VIAL As Ordered ONE (09:28)
[2024-09-30 10:14] VITALS: TEMP 98.1
[2024-09-30 10:30] VITALS: BP 154/98; O2SAT 98
== END 2024-09-30 10:44 | disposition home or self-care (01) ==
LOC: M OPP 08:05
PROVIDERS: ATTEND Surgery
DX: D12.6 Benign neoplasm of colon, unspecified (principal); Z86.0100 Personal history of colon polyps, unspecified; Z79.51 Long term (current) use of inhaled steroids; Z79.84 Long term (current) use of oral hypoglycemic drugs; Z79.899 Other long term (current) drug therapy; Z87.891 Personal history of nicotine dependence

== ENCOUNTER → 2024-10-22 | Outpatient (CLI) | payer MEDICARE, OTHER | LOC: M RAD 08:43 | PROVIDERS: ATTEND Internal Medicine Infectious Disease | DX: M46.26 Osteomyelitis of vertebra, lumbar region (principal) ==

== ENCOUNTER → 2025-01-18 | Outpatient (CLI) | payer MEDICARE, OTHER ==
[2025-01-18 09:55] LABS: PLATELET COUNT, AUTOMATED 322 10^3/uL (150-450)
[2025-01-18 10:13] LABS: ESTIMATED AVERAGE GLUCOSE 123.0 MG/DL (60-110)
[2025-01-18 11:03] LABS: ALT/SGPT 17.0 U/L (7.0-40); AST/SGOT 24.0 U/L (<34); CALCIUM LEVEL 9.1 MG/DL (8.3-10.6); CARBON DIOXIDE LEVEL 28.0 MMOL/L (20-31); CHLORIDE LEVEL 104.0 MMOL/L (98-107); CHOLESTEROL LEVEL 175.0 MG/DL (<200); CHOLESTEROL RISK RATIO 3.5 (<5); CREATININE FOR GFR 1.0 MG/DL (0.70-1.30); GLOMERULAR FILTRATION RATE 81.0 (>42); LDL CHOLESTEROL 102.6 MG/DL (<100); NON-HDL-C 125.0 MG/DL; POTASSIUM SERUM 5.0 MMOL/L (3.5-5.1); SODIUM LEVEL 140.0 MMOL/L (136-145); TRIGLYCERIDES LEVEL 112.0 MG/DL (<150)
== END ==
LOC: M LAB 08:15
PROVIDERS: ATTEND Student in an Organized Health Care Education/Training Program
DX: Z00.00 Encounter for general adult medical examination without abnormal findings (principal); H90.A21 Sensorineural hearing loss, unilateral, right ear, with restricted hearing on the contralateral side; E78.5 Hyperlipidemia, unspecified; Z79.84 Long term (current) use of oral hypoglycemic drugs; Z79.899 Other long term (current) drug therapy

== ENCOUNTER 2025-01-27 09:41 | Day surgery (SDC) | payer MEDICARE, OTHER ==
[~2025-01-27] VITALS: Ht 175.3 cm; Wt 107.2 kg
[~2025-01-27 09:41] MED LIST changes: +PHENYLEPHRINE 10% OPHTH SOL 5ML OD PRN
[2025-01-27] MEDS ORDERED: MIDAZOLAM INJ 2 MG/2 ML VIAL As Ordered ONE (10:53)
[2025-01-27] MEDS: LIDOCAINE 3.5% 1 ML OPHTH TOPICAL GEL OU ONE (11:15)
[2025-01-27] MEDS: PHENYLEPHRINE 2.5% OPHTH SOL 2ML OD SCH (11:15)
[2025-01-27] MEDS: CYCLOPENTOLATE 1% OPHTH SOLN 2 ML BTL OD SCH (11:15)
[2025-01-27] MEDS: OFLOXACIN 0.3 % (OCUFLOX) OPTH SOL 5ML OD ONE (11:15)
[2025-01-27] MEDS: TROPICAMIDE 1% OPHTH SOLN 15ML OD SCH (11:16)
[2025-01-27] MEDS: CEFUROXIME 1 MG/0.1 ML INTRACAMERAL INJ As Ordered ONE (12:04)
[2025-01-27] MEDS: LIDOCAINE 1% SDV 5 ML VIAL As Ordered ONE (12:04)
[2025-01-27] MEDS: BSS IRRIG/VANCO(10MG)/TOBRA(5MG)/EPINEPH(1:1000-0.5CC)500ML BAG-ORONLY As Ordered ONE (12:04)
[2025-01-27 12:18] VITALS: BP 138/83; TEMP 97.2; O2SAT 98
== END 2025-01-27 12:40 | disposition home or self-care (01) ==
LOC: M SDC 09:41
PROVIDERS: ATTEND Ophthalmology
DX: H25.11 Age-related nuclear cataract, right eye (principal); R73.03 Prediabetes; I10 Essential (primary) hypertension; E78.00 Pure hypercholesterolemia, unspecified; Z79.84 Long term (current) use of oral hypoglycemic drugs; Z79.899 Other long term (current) drug therapy; Z87.891 Personal history of nicotine dependence
CPT/HCPCS: 66984; J0697; J2250; J3010; V2632

== ENCOUNTER 2025-02-03 08:40 | Day surgery (SDC) | payer MEDICARE, OTHER ==
[~2025-02-03] VITALS: Ht 175.3 cm; Wt 107.4 kg
[~2025-02-03 08:40] MED LIST changes: +MIDAZOLAM INJ 2 MG/2 ML VIAL As Ordered ONE; -PHENYLEPHRINE 10% OPHTH SOL 5ML OD PRN; +PHENYLEPHRINE 10% OPHTH SOL 5ML OS PRN
[2025-02-03] MEDS: OFLOXACIN 0.3 % (OCUFLOX) OPTH SOL 5ML OS ONE (10:00)
[2025-02-03] MEDS: LIDOCAINE 3.5% 1 ML OPHTH TOPICAL GEL OU ONE (10:01)
[2025-02-03] MEDS: TROPICAMIDE 1% OPHTH SOLN 15ML OS SCH (10:01)
[2025-02-03] MEDS: CYCLOPENTOLATE 1% OPHTH SOLN 2 ML BTL OS SCH (10:01)
[2025-02-03] MEDS: PHENYLEPHRINE 2.5% OPHTH SOL 2ML OS SCH (10:01)
[2025-02-03] MEDS: LIDOCAINE 1% SDV 5 ML VIAL As Ordered ONE (10:30)
[2025-02-03] MEDS: CEFUROXIME 1 MG/0.1 ML INTRACAMERAL INJ As Ordered ONE (10:31)
[2025-02-03] MEDS: BSS IRRIG/VANCO(10MG)/TOBRA(5MG)/EPINEPH(1:1000-0.5CC)500ML BAG-ORONLY As Ordered ONE (10:31)
[2025-02-03 10:46] VITALS: BP 128/73; TEMP 97.5; O2SAT 95
== END 2025-02-03 11:17 | disposition home or self-care (01) ==
LOC: M SDC 08:40
PROVIDERS: ATTEND Ophthalmology
DX: H25.12 Age-related nuclear cataract, left eye (principal); R73.03 Prediabetes; I10 Essential (primary) hypertension; E78.00 Pure hypercholesterolemia, unspecified; Z79.899 Other long term (current) drug therapy; Z79.84 Long term (current) use of oral hypoglycemic drugs; Z87.891 Personal history of nicotine dependence
CPT/HCPCS: 66984; J0697; J2250; J3010; V2632

== ENCOUNTER → 2025-03-02 | Outpatient (CLI) | payer MEDICARE, OTHER ==
[~2025-03-02] MED LIST changes: -MIDAZOLAM INJ 2 MG/2 ML VIAL As Ordered ONE; -PHENYLEPHRINE 10% OPHTH SOL 5ML OS PRN
== END ==
LOC: M LAB 08:15
PROVIDERS: ATTEND Urology
DX: N40.0 Benign prostatic hyperplasia without lower urinary tract symptoms (principal)

== ENCOUNTER → 2025-03-02 | Outpatient (CLI) | payer MEDICARE, OTHER | LOC: M LAB 08:10 | PROVIDERS: ATTEND Internal Medicine Infectious Disease | DX: M46.26 Osteomyelitis of vertebra, lumbar region (principal); N40.0 Benign prostatic hyperplasia without lower urinary tract symptoms | CPT/HCPCS: 36415; 84154; 85652; 86140; G0103 ==

== ENCOUNTER → 2025-04-01 | Outpatient (CLI) | payer MEDICARE, OTHER | LOC: M PLARAD 07:42 | PROVIDERS: ATTEND Physician Assistant | DX: H90.A31 Mixed conductive and sensorineural hearing loss, unilateral, right ear with restricted hearing on the contralateral side (principal) ==

== ENCOUNTER → 2025-04-04 | Outpatient (CLI) | payer MEDICARE, OTHER ==
[2025-04-04 10:26] LABS: BASO # 0.1 10^3/uL (0.0-0.2); BASO % 1.1 % (0.0-1.0); EOS # 0.7 10^3/uL (0.0-0.5); EOS % 6.2 % (0.0-3.0); LYMPH # 3.2 10^3/uL (1.5-5.0); LYMPH % 29.5 % (24.0-44.0); MONO # 1.4 10^3/uL (0.0-0.8); MONO % 12.5 % (2.0-8.0); NEUTROPHILS # 5.5 10^3/uL (1.5-8.5); NEUTROPHILS % 50.4 % (36.0-66.0); PLATELET COUNT, AUTOMATED 307 10^3/uL (150-450)
[2025-04-04 10:39] LABS: ALT/SGPT 27.0 U/L (7.0-40); AST/SGOT 25.0 U/L (<34); CALCIUM LEVEL 8.9 MG/DL (8.3-10.6); CARBON DIOXIDE LEVEL 29.0 MMOL/L (20-31); CHLORIDE LEVEL 107.0 MMOL/L (98-107); CHOLESTEROL LEVEL 217.0 MG/DL (<200); CHOLESTEROL RISK RATIO 3.53 (<5); CREATININE FOR GFR 1.25 MG/DL (0.70-1.30); GLOMERULAR FILTRATION RATE 62.0 (>42); LDL CHOLESTEROL 136.7 MG/DL (<100); NON-HDL-C 155.7 MG/DL; POTASSIUM SERUM 5.3 MMOL/L (3.5-5.1); SODIUM LEVEL 143.0 MMOL/L (136-145); TRIGLYCERIDES LEVEL 95.0 MG/DL (<150)
[2025-04-04 11:33] LABS: ESTIMATED AVERAGE GLUCOSE 123.0 MG/DL (60-110)
== END ==
LOC: M LAB 08:40
DX: E78.5 Hyperlipidemia, unspecified (principal); I10 Essential (primary) hypertension; Z13.1 Encounter for screening for diabetes mellitus